=== PATIENT | male | born 1930 | race African-American/Black ===

== ENCOUNTER 2018-02-19 11:52 | Inpatient (IN) | payer MEDICARE, OTHER ==
[~2018-02-19] VITALS: Ht 175.3 cm; Wt 83.9 kg
[~2018-02-19 11:52] MED LIST: NKM; PROTONIX20 MG ORAL
[2018-02-19 12:15] VITALS: BP 163/82
[2018-02-19] MEDS ORDERED: Sodium Chloride 500ML 500 ML IV ONE (12:23)
[2018-02-19] MEDS ORDERED: Isovue-300 100ml vial INJ PRN (12:30)
[2018-02-19 13:16] LABS: HEMATOCRIT 38.4 % (42.0-52.0); HEMOGLOBIN 11.9 G/DL (14.2-18.0); MEAN CORPUSCULAR VOLUME 84 FL (80-99); PLATELET COUNT 253 K/UL (150-450); RED BLOOD COUNT 4.55 M/UL (4.70-6.10); RED CELL DISTRIBUTION WIDTH 11.8 % (11.6-14.8); WHITE BLOOD COUNT 9.3 K/UL (4.8-10.8)
[2018-02-19 13:18] LABS: APPEARANCE,URINE CLEAR; BILIRUBIN, URINE NEGATIVE (NEGATIVE); GLUCOSE, URINE (UA) NEGATIVE (NEGATIVE); KETONES,URINE NEGATIVE (NEGATIVE); LEUKOCYTE ESTERASE ,URINE NEGATIVE (NEGATIVE); NITRITE,URINE NEGATIVE (NEGATIVE); PH,URINE 6 (4.5-8.0); PROTEIN,URINE 2+ (NEGATIVE); UROBILINOGEN,URINE NORMAL MG/DL (0.0-1.0)
[2018-02-19 13:21] LABS: COLOR,URINE YELLOW
[2018-02-19 13:30] VITALS: BP 153/68
[2018-02-19 13:30] LABS: ANION GAP 9 mmol/L (5-15); BLOOD UREA NITROGEN 18 mg/dL (7-18); CALCIUM 9.8 MG/DL (8.5-10.1); CARBON DIOXIDE 25 MMOL/L (21-32); CHLORIDE 106 MMOL/L (98-107); CREATININE 1.2 MG/DL (0.55-1.30); POTASSIUM 3.8 MMOL/L (3.5-5.1); SODIUM 140 MMOL/L (136-145)
[2018-02-19 13:34] LABS: ALANINE AMINOTRANSFERASE 21 U/L (12-78); ALBUMIN 4.3 G/DL (3.4-5.0); ALBUMIN/GLOBULIN RATIO 1.1 (1.0-2.7); ALKALINE PHOSPHATASE 124 U/L (46-116); ASPARTATE AMINO TRANSFERASE 23 U/L (15-37); BILIRUBIN,TOTAL 0.4 MG/DL (0.2-1.0)
--- NOTE | 2018-02-19 13:34 | Emergency Room Report ---
History of Present Illness General Chief Complaint: Abdominal Pain Source: Family Member (Charlie Young MD) Present Illness HPI 87-year-old male presents ED complaining of abdominal pain 1 day. Pain is epigastric, 5 out of 10, sharp, nonradiating. Denies chest pain or shortness of breath. Denies nausea or vomiting. No other aggravating relieving factors. Denies any other associated symptoms (Charlie Young MD) Allergies: Coded Allergies: No Known Allergies (Verified Allergy, Mild, 08/21/10) Patient History Past Medical History: HTN, dementia Past Surgical History: none Pertinent Family History: none Social History: Denies: smoking, alcohol use, drug use Immunizations: UTD Reviewed Nursing Documentation: PMH: Agreed; PSxH: Agreed (Charlie Young MD) Nursing Documentation-PMH Hx Hypertension: Yes History Of Psychiatric Problem: Yes Hx Neurological Problems: Yes - parkinsons, dementia (Charlie Young MD) Review of Systems All Other Systems: negative except mentioned in HPI (Charlie Young MD) Physical Exam Vital Signs Date Time Temp Pulse Resp B/P (MAP) Pulse Ox O2 Delivery O2 Flow Rate FiO2 02/19/18 12:06 98.2 80 16 163/82 97 Room Air 98.2 Sp02 EP Interpretation: reviewed, normal General Appearance: no apparent distress, alert, GCS 15, non-toxic Head: normocephalic, atraumatic Eyes: bilateral eye normal inspection, bilateral eye PERRL ENT: hearing grossly normal, normal pharynx, no angioedema, normal voice Neck: full range of motion, supple/symm/no masses Respiratory: chest non-tender, lungs clear, normal breath sounds, speaking full sentences Cardiovascular #1: regular rate, rhythm, no edema Cardiovascular #2: 2+ carotid (R), 2+ carotid (L), 2+ radial (R), 2+ radial (L) , 2+ dorsalis pedis (R), 2+ dorsalis pedis (L) Gastrointestinal: normal bowel sounds, soft, non-distended, no guarding, no rebound, tenderness - epigastric Rectal: deferred Genitourinary: normal inspection, no CVA tenderness Musculoskeletal: back normal, gait/station normal, normal range of motion, non- tender Neurologic: alert, oriented x3, responsive, motor strength/tone normal, sensory intact, speech normal Psychiatric: judgement/insight normal, memory normal, mood/affect normal, no suicidal/homicidal ideation Reflexes: 3+ bicep (R), 3+ bicep (L), 3+ tricep (R), 3+ tricep (L), 3+ knee (R) , 3+ knee (L) Skin: normal color, no rash, warm/dry, well hydrated Lymphatic: no adenopathy (Charlie Young MD) Medical Decision Making ER Course The patient was endorsed to me by Dr. Young. The patient was noted to have abdominal discomfort. The CT abdomen pelvis showed evidence of bowel thickening as well as the gallbladder wall thickening. Dr. Xander Fofana was contacted for inpatient management due to covering physician. Dr. Kelley was contacted for surgical consult. (Fredi Coe MD) EKG Diagnostic Results Rate: normal Rhythm: NSR ST Segments: no acute changes ASA given to the pt in ED: No (Charlie Young MD) Rhythm Strip Diag. Results EP Interpretation: yes Rhythm: NSR, no PVC's, no ectopy (Charlie Young MD) Last Vital Signs Date Time Temp Pulse Resp B/P (MAP) Pulse Ox O2 Delivery O2 Flow Rate FiO2 02/19/18 12:15 98.2 16 163/82 97 Room Air 98.2 02/19/18 12:06 80 (Charlie Young MD) Status: unchanged (Fredi Coe MD) Charlie Young MD Feb 19, 2018 13:34 Fredi Coe MD Feb 19, 2018 16:48
--- NOTE | 2018-02-19 14:32 | Diagnostic Imaging Report ---
EXAM: CT Abdomen and Pelvis With Intravenous Contrast CLINICAL HISTORY: ABD PAIN TECHNIQUE: Axial computed tomography images of the abdomen and pelvis with intravenous contrast. CTDI is 14 mGy and DLP is 705 mGy-cm. One or more of the following dose reduction techniques were used: automated exposure control, adjustment of the mA and/or kV according to patient size, use of iterative reconstruction technique. COMPARISON: CT abdomen and pelvis dated 03/04/16. FINDINGS: Lung bases: Minimal dependent atelectasis in the lung bases. Mediastinum: Moderate size hiatal hernia. ABDOMEN: Liver: Stable subcentimeter hepatic hypodensities, largest measuring 7 mm in the left hepatic lobe, unchanged, likely small cysts or biliary hamartomas. Gallbladder and bile ducts: Mild gallbladder wall thickening without calcified stones. Mild distention of the common bile duct to 7 mm and mild prominence of the pancreatic duct. No visible calcified ductal stones. Pancreas: See above. Spleen: Unremarkable. No splenomegaly. Adrenals: Unremarkable. No mass. Kidneys and ureters: Scattered subcentimeter simple-appearing renal cysts. The kidneys otherwise appear unremarkable. No hydronephrosis. Stomach and bowel: Mild wall thickening of the descending and sigmoid colon may be related to underdistended loops. Scattered diverticula in the descending and sigmoid colon. No abnormally distended loops of small bowel. Mildly distended stomach with a moderate hiatal hernia. PELVIS: Appendix: No findings to suggest acute appendicitis. Bladder: Unremarkable. No mass. Reproductive: The prostate gland and seminal vesicles appear unremarkable. ABDOMEN and PELVIS: Intraperitoneal space: Unremarkable. No free air. No significant fluid collection. Bones/joints: No acute fracture. No dislocation. Soft tissues: Small bilateral fat-containing hernias, right greater than left. Vasculature: Atherosclerotic calcifications throughout the abdominal aorta and its proximal branches. No aneurysmal dilatation. Lymph nodes: Unremarkable. No enlarged lymph nodes. IMPRESSION: 1. Mild wall thickening of the descending and sigmoid colon may be related to underdistention versus a mild infectious or inflammatory colitis or diverticulitis. No adjacent inflammatory changes, free air, or fluid collections. 2. Mild gallbladder wall thickening with associated distention of the common bile duct to 7 mm and mild prominence of the pancreatic duct. No visible calcified stones. This is not significantly changed compared to the prior CT exam. If there is continued clinical concern, further evaluation with right upper quadrant ultrasound or MRI/MRCP may be considered 3. Moderate size hiatal hernia. 4. Stable subcentimeter hepatic hypodensities, largest measuring 7 mm in the left hepatic lobe, unchanged, likely small cysts or biliary hamartomas. 5. Descending and sigmoid colonic diverticulosis without evidence of acute inflammation.
[2018-02-19] MEDS ORDERED: Piperacillin/Tazobactam 3.375 GM in NS 110 ML IVPB ONE (14:45)
[2018-02-19] MEDS ORDERED: Morphine Sulfate 2mg/ml Inj(IV/IM USE ONLY) IVP ONE (15:00)
[2018-02-19 16:30] VITALS: BP 159/75
[2018-02-19 17:54] VITALS: BP 153/68
--- NOTE | 2018-02-19 19:02 | Consultation ---
History of Present Illness General Date patient seen: Feb 19, 2018 Chief Complaint: Abdominal Pain Reason for Consultation: abdominal pain Present Illness HPI 87 year old male with multiple medical comorbidities presented to ED with complaints of Abdominal pain for 1 day. As per patient, he was doing well until he began to note some epigastric 5/10 abdominal discomfort. mild nausea but no emesis. no fever or chills. no radiation of pain. states he has had similar episodes prior but this one was worse and he came for evaluation. In ED had CT which demonstrated mildly thickened gallbladder wall thickening, possible descending colitis. Surgery consulted to evaluate for abdominal pain. patient seen, chart reviewed, patient examined. patient states he feels better now but still having some discomfort. on examination pain in mid abdomen. last BM few days ago. states he does have appetite. Allergies: Coded Allergies: No Known Allergies (Verified Allergy, Mild, 08/21/10) Medication History Scheduled No Known Medications* (NKM - No Known Medications*), 0 ., (Reported) Pantoprazole Sodium (Protonix), 20 MG ORAL DAILY Patient History History Provided By: Patient, Medical Record, PMD Healthcare decision maker Resuscitation status Advanced Directive on File Past Medical/Surgical History Past Medical/Surgical History: (1) Intractable abdominal pain (2) Hypertension (3) Encephalopathy acute (4) Biliary colic (5) Transaminitis Review of Systems All Other Systems: negative except mentioned in HPI Physical Exam General Appearance: no apparent distress, alert Lines, tubes and drains: peripheral HEENT: normocephalic, mucous membranes moist Neck: normal inspection Respiratory/Chest: normal breath sounds, no respiratory distress, no accessory muscle use Cardiovascular/Chest: normal rate Abdomen: normal bowel sounds, soft, no organomegaly, no mass, tender - mid abdomen, mild Extremities: normal inspection Skin Exam: warm/dry Neurologic: alert, responsive Last 24 Hour Vital Signs Date Time Temp Pulse Resp B/P (MAP) Pulse Ox O2 Delivery O2 Flow Rate FiO2 02/19/18 17:54 98.2 69 18 153/68 100 Room Air 98.2 02/19/18 17:48 98.2 02/19/18 16:30 98.2 83 18 159/75 100 Room Air 98.2 02/19/18 15:17 98.2 02/19/18 13:30 98.2 87 18 153/68 98 Room Air 98.2 02/19/18 12:15 98.2 16 163/82 97 Room Air 98.2 02/19/18 12:06 98.2 80 16 163/82 97 Room Air 98.2 Laboratory Tests Test 02/19/18 13:01 White Blood Count 9.3 K/UL (4.8-10.8) Red Blood Count 4.55 M/UL (4.70-6.10) L Hemoglobin 11.9 G/DL (14.2-18.0) L Hematocrit 38.4 % (42.0-52.0) L Mean Corpuscular Volume 84 FL (80-99) Mean Corpuscular Hemoglobin 26.1 PG (27.0-31.0) L Mean Corpuscular Hemoglobin Concent 30.9 G/DL (32.0-36.0) L Red Cell Distribution Width 11.8 % (11.6-14.8) Platelet Count 253 K/UL (150-450) Mean Platelet Volume 7.5 FL (6.5-10.1) Neutrophils (%) (Auto) % (45.0-75.0) Lymphocytes (%) (Auto) % (20.0-45.0) Monocytes (%) (Auto) % (1.0-10.0) Eosinophils (%) (Auto) % (0.0-3.0) Basophils (%) (Auto) % (0.0-2.0) Differential Total Cells Counted 100 Neutrophils % (Manual) 89 % (45-75) H Lymphocytes % (Manual) 8 % (20-45) L Monocytes % (Manual) 3 % (1-10) Eosinophils % (Manual) 0 % (0-3) Basophils % (Manual) 0 % (0-2) Band Neutrophils 0 % (0-8) Platelet Estimate Adequate Platelet Morphology Normal Hypochromasia 1+ Anisocytosis 1+ Urine Color Yellow Urine Appearance Clear Urine pH 6 (4.5-8.0) Urine Specific [place] 1.020 (1.005-1.035) Urine Protein 2+ (NEGATIVE) H Urine Glucose (UA) Negative (NEGATIVE) Urine Ketones Negative (NEGATIVE) Urine Occult Blood Negative (NEGATIVE) Urine Nitrite Negative (NEGATIVE) Urine Bilirubin Negative (NEGATIVE) Urine Urobilinogen Normal MG/DL (0.0-1.0) Urine Leukocyte Esterase Negative (NEGATIVE) Urine RBC 0-2 /HPF (0 - 0) H Urine WBC 0-2 /HPF (0 - 0) Urine Squamous Epithelial Cells Occasional /LPF Urine Bacteria Occasional /HPF (NONE) Urine Fine Granular Casts 0-2 /LPF (NONE) H Sodium Level 140 MMOL/L (136-145) Potassium Level 3.8 MMOL/L (3.5-5.1) Chloride Level 106 MMOL/L (98-107) Carbon Dioxide Level 25 MMOL/L (21-32) Anion Gap 9 mmol/L (5-15) Blood Urea Nitrogen 18 mg/dL (7-18) Creatinine 1.2 MG/DL (0.55-1.30) Estimat Glomerular Filtration Rate mL/min (>60) Glucose Level 119 MG/DL (74-106) H Calcium Level 9.8 MG/DL (8.5-10.1) Total Bilirubin 0.4 MG/DL (0.2-1.0) Aspartate Amino Transf (AST/SGOT) 23 U/L (15-37) Alanine Aminotransferase (ALT/SGPT) 21 U/L (12-78) Alkaline Phosphatase 124 U/L (46-116) H Troponin I 0.004 ng/mL (0.000-0.056) Total Protein 8.3 G/DL (6.4-8.2) H Albumin 4.3 G/DL (3.4-5.0) Globulin 4.0 g/dL Albumin/Globulin Ratio 1.1 (1.0-2.7) Lipase 88 U/L (73-393) Height (Feet): 5 Height (Inches): 9.00 Weight (Pounds): 185 Medications Current Medications Medications (Trade) Dose Ordered Sig/Juvenal Route PRN Reason Start Time Stop Time Status Last Admin Dose Admin Iopamidol (Isovue-300 100ml) 100 ml NOW PRN INJ Radiology Procedure 02/19/18 12:30 Assessment/Plan Problem List: (1) Intractable abdominal pain Assessment & Plan: 87M with abdominal pain. afebrile, HD stable, labs reviewed. no leukocytosis but shift. alk phos mildly elevated. CT with GB wall thickening, normal CBD, possible descending colitis. -will obtain abdominal ultrasound -trend labs -Abx -NPO with IV fluids -serial abdominal exams thank you for this consultation. will follow with recs. ICD Codes: R10.9 - Unspecified abdominal pain SNOMED: [id number], [id number] Status: stable WarrenRomán Feb 19, 2018 19:02
[2018-02-19] MEDS ORDERED: Mylanta II UD 30ml ORAL PRN (19:15)
[2018-02-19] MEDS ORDERED: Morphine Sulfate 2mg/ml Inj(IV/IM USE ONLY) IVP PRN ×2 (19:15)
[2018-02-19 19:50] VITALS: BP 143/75
[2018-02-19] MEDS: D5 1/2NS w/KCl 20mEq 1,000 ML IV SCH (20:59)
[2018-02-19] MEDS ORDERED: Milk of Magnesia 30ml Ud ORAL PRN (21:00)
[2018-02-19] MEDS: Heparin 5000 units/ml inj SUBQ SCH (21:03)
[2018-02-20] VITALS: BP 139/62
[2018-02-20 04:00] VITALS: BP 138/66
[2018-02-20] MEDS: D5 1/2NS w/KCl 20mEq 1,000 ML IV SCH ×2 (05:58→16:53)
[2018-02-20 06:15] LABS: BASOPHILS % (AUTO) 0.2 % (0.0-2.0); EOSINOPHILS % (AUTO) 0.4 % (0.0-3.0); HEMATOCRIT 33.2 % (42.0-52.0); HEMOGLOBIN 11.1 G/DL (14.2-18.0); LYMPHOCYTES % (AUTO) 9.5 % (20.0-45.0); MEAN CORPUSCULAR VOLUME 84 FL (80-99); MONOCYTES % (AUTO) 7.8 % (1.0-10.0); NEUTROPHILS % (AUTO) 82.1 % (45.0-75.0); PLATELET COUNT 202 K/UL (150-450); RED BLOOD COUNT 3.97 M/UL (4.70-6.10); RED CELL DISTRIBUTION WIDTH 11.8 % (11.6-14.8); WHITE BLOOD COUNT 11.9 K/UL (4.8-10.8)
[2018-02-20 06:39] LABS: ALANINE AMINOTRANSFERASE 18 U/L (12-78); ALBUMIN 3.4 G/DL (3.4-5.0); ALBUMIN/GLOBULIN RATIO 0.9 (1.0-2.7); ALKALINE PHOSPHATASE 99 U/L (46-116); ANION GAP 10 mmol/L (5-15); ASPARTATE AMINO TRANSFERASE 16 U/L (15-37); BILIRUBIN,TOTAL 0.7 MG/DL (0.2-1.0); BLOOD UREA NITROGEN 12 mg/dL (7-18); CALCIUM 8.6 MG/DL (8.5-10.1); CARBON DIOXIDE 27 MMOL/L (21-32); CHLORIDE 102 MMOL/L (98-107); CREATININE 1.2 MG/DL (0.55-1.30); POTASSIUM 3.6 MMOL/L (3.5-5.1); SODIUM 139 MMOL/L (136-145)
[2018-02-20 08:00] VITALS: BP 126/67
[2018-02-20] MEDS: Pantoprazole Inj IV SCH (08:48)
[2018-02-20] MEDS: Heparin 5000 units/ml inj SUBQ SCH ×2 (08:50→22:10)
[2018-02-20] MEDS: Piperacillin/Tazobactam 3.375 GM in D5W 110 ML IVPB SCH ×2 (09:06→16:53)
[2018-02-20 12:00] VITALS: BP 130/70
--- NOTE | 2018-02-20 12:30 | History and Physical Report ---
DATE OF ADMISSION: 02/19/2018 CHIEF COMPLAINT: Abdominal pain. HISTORY OF PRESENT ILLNESS: The patient is a pleasant 87-year-old male. He has a history of cholelithiasis, hypertension, hypertensive heart disease, bradycardia, and conduction system disease. He has a history of dementia. He presented with complaints of abdominal pain for two to three days. He has had similar episodes in the past possibly secondary to gallstones. He was treated conservatively at that time. On evaluation in the emergency room, the patient had a CAT scan of the abdomen that did show some gallbladder wall thickening. He had a low-grade temperature. Blood cultures have been drawn. Surgical consultation has been obtained. The patient is now admitted for further evaluation and care. PAST MEDICAL HISTORY: As above. PAST SURGICAL HISTORY: None. CURRENT MEDICATIONS: Reconciled and reviewed. ALLERGIES: None. FAMILY HISTORY: None. SOCIAL HISTORY: Negative for tobacco, ethanol, or drugs. REVIEW OF SYSTEMS: GENERAL: Positive fevers and chills. No night sweats. HEENT: No headaches or visual changes. CARDIOPULMONARY: No chest pain or shortness of breath. GASTROINTESTINAL: Positive abdominal pain above the umbilicus. GENITOURINARY: No urgency or frequency. MUSCULOSKELETAL: No joint pain or swelling. NEUROLOGIC: No evidence of seizures. PHYSICAL EXAMINATION: VITAL SIGNS: Temperature, T-max was 100.5, pulse 73, respirations 19, and blood pressure 138/66. GENERAL: The patient is well developed, no apparent distress. HEART: Regular rate and rhythm. LUNGS: Clear. ABDOMEN: Soft. Minimally tender in the mid epigastric region. There is no rebound or guarding noted. EXTREMITIES: No clubbing or cyanosis. LABORATORY AND DIAGNOSTIC DATA: White count was 12, hemoglobin 11, hematocrit 33, and platelets 202. Coags normal. Sodium 140, potassium 3.8, glucose 119, and creatinine 1.2. Lipase was negative. LFTs were also unremarkable. CT scan of the abdomen shows bowel wall thickening of the descending and sigmoid colon. Mild gallbladder wall thickening. Hiatal hernia. Hepatic hypodensities. ASSESSMENT: This is a pleasant male, admitted with complaints of abdominal pain of unclear etiology, concerns include possible colitis and/or cholecystitis. PLAN: IV hydration, n.p.o., surgical and GI consultation will be obtained. Empiric antibiotic therapy. Xander Fofana M.D. DR: NELIA JOB#: [id number] CC:
--- NOTE | 2018-02-20 12:39 | General Surgery Progress Note ---
General Surgery-Progress Note Subjective Symptoms: improved, pain absent Additional Comments comfortable. ambulatory with therapy today. no n/v/f/c. pain resolving Objective Last 24 Hour Vital Signs Date Time Temp Pulse Resp B/P (MAP) Pulse Ox O2 Delivery O2 Flow Rate FiO2 02/20/18 09:00 Room Air 02/20/18 08:00 99.0 66 19 126/67 (86) 98 99.0 02/20/18 05:24 98.4 02/20/18 04:25 100.5 02/20/18 04:00 100.5 73 19 138/66 (90) 98 100.5 02/20/18 00:00 99.3 66 19 139/62 (87) 97 99.3 02/19/18 23:04 Room Air 02/19/18 19:50 99.1 76 18 143/75 (97) 99 99.1 02/19/18 19:35 98.2 69 18 153/68 100 Room Air 98.2 02/19/18 17:54 98.2 69 18 153/68 100 Room Air 98.2 02/19/18 17:48 98.2 02/19/18 16:30 98.2 83 18 159/75 100 Room Air 98.2 02/19/18 15:17 98.2 02/19/18 13:30 98.2 87 18 153/68 98 Room Air 98.2 I&O Intake and Output 02/19/18 02/20/18 19:00 07:00 Intake Total 0 ml Output Total 150 ml Balance -150 ml Intake Oral 0 ml Output Urine Total 150 ml # Voids 1 4 Drains: none Cardiovascular: RSR Respiratory: clear Abdomen: soft, distended, non-tender, present bowel sounds Extremities: no cyanosis Laboratory Tests Test 02/19/18 13:01 02/20/18 05:30 White Blood Count 9.3 K/UL (4.8-10.8) 11.9 K/UL (4.8-10.8) H Red Blood Count 4.55 M/UL (4.70-6.10) L 3.97 M/UL (4.70-6.10) L Hemoglobin 11.9 G/DL (14.2-18.0) L 11.1 G/DL (14.2-18.0) L Hematocrit 38.4 % (42.0-52.0) L 33.2 % (42.0-52.0) L Mean Corpuscular Volume 84 FL (80-99) 84 FL (80-99) Mean Corpuscular Hemoglobin 26.1 PG (27.0-31.0) L 28.1 PG (27.0-31.0) Mean Corpuscular Hemoglobin Concent 30.9 G/DL (32.0-36.0) L 33.5 G/DL (32.0-36.0) Red Cell Distribution Width 11.8 % (11.6-14.8) 11.8 % (11.6-14.8) Platelet Count 253 K/UL (150-450) 202 K/UL (150-450) Mean Platelet Volume 7.5 FL (6.5-10.1) 8.3 FL (6.5-10.1) Neutrophils (%) (Auto) % (45.0-75.0) 82.1 % (45.0-75.0) H Lymphocytes (%) (Auto) % (20.0-45.0) 9.5 % (20.0-45.0) L Monocytes (%) (Auto) % (1.0-10.0) 7.8 % (1.0-10.0) Eosinophils (%) (Auto) % (0.0-3.0) 0.4 % (0.0-3.0) Basophils (%) (Auto) % (0.0-2.0) 0.2 % (0.0-2.0) Differential Total Cells Counted 100 Neutrophils % (Manual) 89 % (45-75) H Lymphocytes % (Manual) 8 % (20-45) L Monocytes % (Manual) 3 % (1-10) Eosinophils % (Manual) 0 % (0-3) Basophils % (Manual) 0 % (0-2) Band Neutrophils 0 % (0-8) Platelet Estimate Adequate Platelet Morphology Normal Hypochromasia 1+ Anisocytosis 1+ Urine Color Yellow Urine Appearance Clear Urine pH 6 (4.5-8.0) Urine Specific [place] 1.020 (1.005-1.035) Urine Protein 2+ (NEGATIVE) H Urine Glucose (UA) Negative (NEGATIVE) Urine Ketones Negative (NEGATIVE) Urine Occult Blood Negative (NEGATIVE) Urine Nitrite Negative (NEGATIVE) Urine Bilirubin Negative (NEGATIVE) Urine Urobilinogen Normal MG/DL (0.0-1.0) Urine Leukocyte Esterase Negative (NEGATIVE) Urine RBC 0-2 /HPF (0 - 0) H Urine WBC 0-2 /HPF (0 - 0) Urine Squamous Epithelial Cells Occasional /LPF Urine Bacteria Occasional /HPF (NONE) Urine Fine Granular Casts 0-2 /LPF (NONE) H Sodium Level 140 MMOL/L (136-145) 139 MMOL/L (136-145) Potassium Level 3.8 MMOL/L (3.5-5.1) 3.6 MMOL/L (3.5-5.1) Chloride Level 106 MMOL/L (98-107) 102 MMOL/L (98-107) Carbon Dioxide Level 25 MMOL/L (21-32) 27 MMOL/L (21-32) Anion Gap 9 mmol/L (5-15) 10 mmol/L (5-15) Blood Urea Nitrogen 18 mg/dL (7-18) 12 mg/dL (7-18) Creatinine 1.2 MG/DL (0.55-1.30) 1.2 MG/DL (0.55-1.30) Estimat Glomerular Filtration Rate mL/min (>60) mL/min (>60) Glucose Level 119 MG/DL (74-106) H 125 MG/DL (74-106) H Calcium Level 9.8 MG/DL (8.5-10.1) 8.6 MG/DL (8.5-10.1) Total Bilirubin 0.4 MG/DL (0.2-1.0) 0.7 MG/DL (0.2-1.0) Aspartate Amino Transf (AST/SGOT) 23 U/L (15-37) 16 U/L (15-37) Alanine Aminotransferase (ALT/SGPT) 21 U/L (12-78) 18 U/L (12-78) Alkaline Phosphatase 124 U/L (46-116) H 99 U/L (46-116) Troponin I 0.004 ng/mL (0.000-0.056) Total Protein 8.3 G/DL (6.4-8.2) H 7.3 G/DL (6.4-8.2) Albumin 4.3 G/DL (3.4-5.0) 3.4 G/DL (3.4-5.0) Globulin 4.0 g/dL 3.9 g/dL Albumin/Globulin Ratio 1.1 (1.0-2.7) 0.9 (1.0-2.7) L Lipase 88 U/L (73-393) Prothrombin Time 10.7 SEC (9.30-11.50) Prothromb Time International Ratio 1.0 (0.9-1.1) Activated Partial Thromboplast Time 29 SEC (23-33) Plan Problems: (1) Intractable abdominal pain Assessment & Plan: 87M with abdominal pain. afebrile, HD stable, labs reviewed. no leukocytosis but shift. alk phos mildly elevated. CT with GB wall thickening, normal CBD, possible descending colitis. -will obtain abdominal ultrasound -trend labs -Abx -start clear liquids thank you for this consultation. will follow with recs. Román Kelley Feb 20, 2018 12:39
[2018-02-20 16:00] VITALS: BP 142/76
[2018-02-20] MEDS ORDERED: Simethicone 80mg tab ORAL PRN (16:30)
[2018-02-20] MEDS ORDERED: Fluconazole 100mg tab ORAL SCH (16:30)
[2018-02-20] MEDS ORDERED: Simethicone 80mg tab ORAL SCH (16:30)
--- NOTE | 2018-02-20 18:37 | Cardiology Report ---
APPROVED REPORT EKG Measurement Heart [id number] [place] [id number] Sinus rhythm with premature atrial complexes Voltage criteria for left ventricular hypertrophy Nonspecific T wave abnormality Abnormal ECG
[2018-02-20 20:00] VITALS: BP 147/64
[2018-02-21] VITALS: BP 136/62
[2018-02-21] MEDS: Piperacillin/Tazobactam 3.375 GM in D5W 110 ML IVPB SCH ×3 (00:26→17:20)
--- NOTE | 2018-02-21 01:00 | Consultation ---
DATE OF CONSULTATION: 02/20/2018 NOTE: POOR AUDIO INFECTIOUS DISEASE CONSULTATION This consult is for coverage of Dr. Almanzar. CONSULTING PHYSICIAN: Garret Hicks M.D. PRIMARY ATTENDING PHYSICIAN: Xander Fofana M.D. REASON FOR CONSULT: Abdominal pain, cholecystitis, and colitis. HISTORY OF PRESENT ILLNESS: The patient is an 87-year-old male, admitted yesterday complaining of mid abdominal pain the patient had no fever, no chills, no leukocytosis at the time of admission. Pain was 5/10, nonradiating. A CT scan of the abdomen and pelvis showed colitis, mild thickening of the gallbladder and hiatus hernia. Today, the patient is pain free. PAST MEDICAL HISTORY: Significant for hypertension, dementia, Parkinson's, esophageal diverticulum, and gastritis. ALLERGIES: No known drug allergies. MEDICATIONS: Zosyn, heparin, , Tylenol, , Zofran, diphenhydramine, and Mylanta. SOCIAL HISTORY: Lives at home with daughter. No history of alcohol, drug abuse, or smoking. REVIEW OF SYSTEMS: No fever. No chills. No sore throat. No nausea. No vomiting. Abdominal pain is resolved. No problem passing urine. Ambulatory. PHYSICAL EXAMINATION: VITAL SIGNS: Temperature 98.7 degrees, pulse 70, and blood pressure 130/70. He had a fever of 100.5 degrees early this morning. GENERAL APPEARANCE: Seems to be well developed, awake, alert, verbal. HEAD AND NECK: [place] conjunctivae. Uses dentures. HEART: Regular. LUNGS: Clear. ABDOMEN: Obese, soft, nontender. EXTREMITIES: No edema. LABORATORY AND DIAGNOSTIC DATA: WBC 11.9, hemoglobin 11.1, hematocrit 33.2, and platelets 202. Sodium 139, potassium 3.6, chloride 102, bicarbonate 27, BUN 12, creatinine 1.2, and glucose 125. UA was negative. CT scan of the abdomen and pelvis with contrast showed mild wall thickening of descending sigmoid colon. Mild gallbladder wall thickening with distention in the colon , moderate size hiatal hernia, descending and sigmoid colon diverticulosis. IMPRESSION: An elderly male coming with abdominal pain, likely secondary to colitis or cholecystitis, has dementia, hiatal hernia, has history of esophageal diverticulum, has diverticulosis of colon, and history of gastritis. RECOMMENDATIONS: We will continue with Zosyn. We will follow up the abdominal ultrasound. At the end of my exam, I thank Dr. Fofana for involving me in the care of this patient. Garret Hicks M.D. DR: LIVIER JOB#: [id number] CC: MARY
[2018-02-21] MEDS: D5 1/2NS w/KCl 20mEq 1,000 ML IV SCH ×3 (02:00→22:00)
[2018-02-21 04:00] VITALS: BP 116/64
[2018-02-21 06:27] LABS: BASOPHILS % (AUTO) 0.4 % (0.0-2.0); EOSINOPHILS % (AUTO) 0.6 % (0.0-3.0); HEMATOCRIT 33.5 % (42.0-52.0); HEMOGLOBIN 10.8 G/DL (14.2-18.0); LYMPHOCYTES % (AUTO) 11.2 % (20.0-45.0); MEAN CORPUSCULAR VOLUME 84 FL (80-99); NEUTROPHILS % (AUTO) 80.9 % (45.0-75.0); PLATELET COUNT 185 K/UL (150-450); RED BLOOD COUNT 3.97 M/UL (4.70-6.10); RED CELL DISTRIBUTION WIDTH 11.8 % (11.6-14.8); WHITE BLOOD COUNT 12.4 K/UL (4.8-10.8)
[2018-02-21 07:12] LABS: ALANINE AMINOTRANSFERASE 21 U/L (12-78); ALBUMIN 3.1 G/DL (3.4-5.0); ALBUMIN/GLOBULIN RATIO 0.8 (1.0-2.7); ALKALINE PHOSPHATASE 90 U/L (46-116); ANION GAP 10 mmol/L (5-15); ASPARTATE AMINO TRANSFERASE 21 U/L (15-37); BILIRUBIN,TOTAL 1.3 MG/DL (0.2-1.0); BLOOD UREA NITROGEN 11 mg/dL (7-18); CALCIUM 8.4 MG/DL (8.5-10.1); CARBON DIOXIDE 25 MMOL/L (21-32); CHLORIDE 102 MMOL/L (98-107); CREATININE 1.3 MG/DL (0.55-1.30); POTASSIUM 3.5 MMOL/L (3.5-5.1); SODIUM 137 MMOL/L (136-145)
[2018-02-21 07:15] LABS: BILIRUBIN,DIRECT 0.4 MG/DL (0.0-0.3)
[2018-02-21 08:00] VITALS: BP 125/67
--- NOTE | 2018-02-21 08:40 | General Progress Note ---
Assessment/Plan Problem List: (1) Hypertension ICD Codes: I10 - Essential (primary) hypertension SNOMED: 78406087 (2) Encephalopathy acute ICD Codes: G93.40 - Encephalopathy, unspecified SNOMED: 9492080 (3) Transaminitis ICD Codes: R74.0 - Nonspecific elevation of levels of transaminase and lactic acid dehydrogenase [LDH] SNOMED: 955247366 (4) Intractable abdominal pain ICD Codes: R10.9 - Unspecified abdominal pain SNOMED: 81005480, 947339217 (5) Biliary colic ICD Codes: K80.50 - Calculus of bile duct without cholangitis or cholecystitis without obstruction SNOMED: 30908836 Status: stable Assessment/Plan cont abx per id mrcp follow up cultures tylenol for fever cardaic rx ivf Subjective ROS Limited/Unobtainable: No Constitutional: Reports: fever HEENT: Reports: no symptoms Cardiovascular: Reports: no symptoms Respiratory: Reports: no symptoms Gastrointestinal/Abdominal: Reports: no symptoms Genitourinary: Reports: no symptoms Neurologic/Psychiatric: Reports: no symptoms Endocrine: Reports: no symptoms Hematologic/Lymphatic: Reports: no symptoms Allergies: Coded Allergies: No Known Allergies (Verified Allergy, Mild, 08/21/10) All Systems: reviewed and negative except above Subjective no new complaints. no abd pain. low grade temps. Objective Last 24 Hour Vital Signs Date Time Temp Pulse Resp B/P (MAP) Pulse Ox O2 Delivery O2 Flow Rate FiO2 02/21/18 08:00 99.8 69 20 125/67 (86) 98 99.8 02/21/18 04:00 99.5 66 18 116/64 (81) 98 99.5 02/21/18 00:00 100.6 65 19 136/62 (86) 99 100.6 02/20/18 21:00 Room Air 02/20/18 20:00 98.1 59 19 147/64 (91) 99 98.1 02/20/18 17:53 98.6 02/20/18 16:54 101.7 02/20/18 16:00 101.7 78 18 142/76 (98) 99 101.7 02/20/18 12:00 98.7 70 18 130/70 (90) 97 98.7 02/20/18 09:00 Room Air Intake and Output 02/20/18 02/21/18 19:00 07:00 Output Total 200 ml Balance -200 ml Output Urine Total 200 ml Laboratory Tests 02/21/18 05:10: White Blood Count 12.4H, Red Blood Count 3.97L, Hemoglobin 10.8L, Hematocrit 33.5L, Mean Corpuscular Volume 84, Mean Corpuscular Hemoglobin 27.2, Mean Corpuscular Hemoglobin Concent 32.2, Red Cell Distribution Width 11.8, Platelet Count 185, Mean Platelet Volume 9.1, Neutrophils (%) (Auto) 80.9H, Lymphocytes ( %) (Auto) 11.2L, Monocytes (%) (Auto) 7.0, Eosinophils (%) (Auto) 0.6, Basophils (%) (Auto) 0.4, Sodium Level 137, Potassium Level 3.5, Chloride Level 102, Carbon Dioxide Level 25, Anion Gap 10, Blood Urea Nitrogen 11, Creatinine 1.3, Estimat Glomerular Filtration Rate , Glucose Level 107H, Calcium Level 8.4L , Total Bilirubin 1.3H, Direct Bilirubin 0.4H, Aspartate Amino Transf (AST/SGOT ) 21, Alanine Aminotransferase (ALT/SGPT) 21, Alkaline Phosphatase 90, Total Protein 6.9, Albumin 3.1L, Globulin 3.8, Albumin/Globulin Ratio 0.8L Height (Feet): 5 Height (Inches): 9.00 Weight (Pounds): 185 General Appearance: WD/WN, alert Neck: supple Cardiovascular: regular rhythm Respiratory/Chest: chest wall non-tender, lungs clear, normal breath sounds, no respiratory distress Abdomen: normal bowel sounds, non tender, soft, no organomegaly Edema: no edema noted Arm (L), no edema noted Arm (R), no edema noted Leg (L), no edema noted Leg (R), no edema noted Pedal (L), no edema noted Pedal (R), no edema noted Generalized Xander Fofana MD Feb 21, 2018 08:40
[2018-02-21] MEDS: Pantoprazole Inj IV SCH (09:17)
[2018-02-21] MEDS: Heparin 5000 units/ml inj SUBQ SCH ×2 (09:18→21:20)
[2018-02-21 12:00] VITALS: BP 108/55
--- NOTE | 2018-02-21 13:51 | General Surgery Progress Note ---
General Surgery-Progress Note Subjective Additional Comments pain improved. states feels better. no n/v/f/c. tolerated clears Objective Last 24 Hour Vital Signs Date Time Temp Pulse Resp B/P (MAP) Pulse Ox O2 Delivery O2 Flow Rate FiO2 02/21/18 12:00 100.1 63 18 108/55 (72) 98 100.1 02/21/18 09:00 Room Air 02/21/18 08:00 99.8 69 20 125/67 (86) 98 99.8 02/21/18 04:00 99.5 66 18 116/64 (81) 98 99.5 02/21/18 00:00 100.6 65 19 136/62 (86) 99 100.6 02/20/18 21:00 Room Air 02/20/18 20:00 98.1 59 19 147/64 (91) 99 98.1 02/20/18 17:53 98.6 02/20/18 16:54 101.7 02/20/18 16:00 101.7 78 18 142/76 (98) 99 101.7 I&O Intake and Output 02/20/18 02/21/18 19:00 07:00 Output Total 200 ml Balance -200 ml Output Urine Total 200 ml Drains: none Cardiovascular: RSR Respiratory: clear Abdomen: soft, non-tender, present bowel sounds Extremities: no cyanosis Laboratory Tests Test 02/21/18 05:10 White Blood Count 12.4 K/UL (4.8-10.8) H Red Blood Count 3.97 M/UL (4.70-6.10) L Hemoglobin 10.8 G/DL (14.2-18.0) L Hematocrit 33.5 % (42.0-52.0) L Mean Corpuscular Volume 84 FL (80-99) Mean Corpuscular Hemoglobin 27.2 PG (27.0-31.0) Mean Corpuscular Hemoglobin Concent 32.2 G/DL (32.0-36.0) Red Cell Distribution Width 11.8 % (11.6-14.8) Platelet Count 185 K/UL (150-450) Mean Platelet Volume 9.1 FL (6.5-10.1) Neutrophils (%) (Auto) 80.9 % (45.0-75.0) H Lymphocytes (%) (Auto) 11.2 % (20.0-45.0) L Monocytes (%) (Auto) 7.0 % (1.0-10.0) Eosinophils (%) (Auto) 0.6 % (0.0-3.0) Basophils (%) (Auto) 0.4 % (0.0-2.0) Sodium Level 137 MMOL/L (136-145) Potassium Level 3.5 MMOL/L (3.5-5.1) Chloride Level 102 MMOL/L (98-107) Carbon Dioxide Level 25 MMOL/L (21-32) Anion Gap 10 mmol/L (5-15) Blood Urea Nitrogen 11 mg/dL (7-18) Creatinine 1.3 MG/DL (0.55-1.30) Estimat Glomerular Filtration Rate mL/min (>60) Glucose Level 107 MG/DL (74-106) H Calcium Level 8.4 MG/DL (8.5-10.1) L Total Bilirubin 1.3 MG/DL (0.2-1.0) H Direct Bilirubin 0.4 MG/DL (0.0-0.3) H Aspartate Amino Transf (AST/SGOT) 21 U/L (15-37) Alanine Aminotransferase (ALT/SGPT) 21 U/L (12-78) Alkaline Phosphatase 90 U/L (46-116) Total Protein 6.9 G/DL (6.4-8.2) Albumin 3.1 G/DL (3.4-5.0) L Globulin 3.8 g/dL Albumin/Globulin Ratio 0.8 (1.0-2.7) L Plan Problems: (1) Intractable abdominal pain Assessment & Plan: 87M with abdominal pain. afebrile, HD stable, labs reviewed. no leukocytosis but shift. alk phos mildly elevated. CT with GB wall thickening, normal CBD, possible descending colitis. slight leukocytosis 12k. elevated t bili. Pending abdominal ultrasound -trend labs -Abx thank you for this consultation. will follow with recs. Román Kelley Feb 21, 2018 13:51
[2018-02-21 16:00] VITALS: BP 119/63
--- NOTE | 2018-02-21 16:56 | Diagnostic Imaging Report ---
Indication:Abdominal pain Technique: Grayscale and duplex Doppler imaging of the abdomen performed. Comparison: CT 02/19/2018 Findings: There is thickening of the wall the gallbladder. Gallstones are present. Trace pericholecystic fluid. Sonographic Tim's is negative per technologist. CBD is between 7 and 8 mm. The liver, demonstrated part of the pancreas, aorta and IVC, spleen appear unremarkable. There is no biliary ductal dilatation identified. Doppler evaluation of the main portal vein shows patency. There is no ascites. Some prominence of the collecting system demonstrated within the left kidney. Impression: Gallstones with wall thickening and pericholecystic fluid but negative sonographic Tim's. Findings are equivocal for cholecystitis based on imaging. Correlate clinically. Mild apparent hydronephrosis of the left kidney.
[2018-02-21 20:00] VITALS: BP 138/65
--- NOTE | 2018-02-21 23:16 | General Progress Note ---
Assessment/Plan Assessment/Plan Assessment - abnormal LFT - thickened GB - gallstones - r/o CBD stone - OBS Recommendations - Check MRCP in am - follow LFT Subjective Allergies: Coded Allergies: No Known Allergies (Verified Allergy, Mild, 08/21/10) Subjective Above noted calm no abdominal complaints Objective Last 24 Hour Vital Signs Date Time Temp Pulse Resp B/P (MAP) Pulse Ox O2 Delivery O2 Flow Rate FiO2 02/21/18 20:00 99.2 61 18 138/65 (89) 99 99.2 02/21/18 17:20 98.6 98.6 02/21/18 16:00 100.7 70 18 119/63 (81) 99 100.7 02/21/18 12:00 100.1 63 18 108/55 (72) 98 100.1 02/21/18 09:00 Room Air 02/21/18 08:00 99.8 69 20 125/67 (86) 98 99.8 02/21/18 04:00 99.5 66 18 116/64 (81) 98 99.5 02/21/18 00:00 100.6 65 19 136/62 (86) 99 100.6 Intake and Output 02/20/18 02/21/18 19:00 07:00 Output Total 200 ml Balance -200 ml Output Urine Total 200 ml Laboratory Tests 02/21/18 05:10: White Blood Count 12.4H, Red Blood Count 3.97L, Hemoglobin 10.8L, Hematocrit 33.5L, Mean Corpuscular Volume 84, Mean Corpuscular Hemoglobin 27.2, Mean Corpuscular Hemoglobin Concent 32.2, Red Cell Distribution Width 11.8, Platelet Count 185, Mean Platelet Volume 9.1, Neutrophils (%) (Auto) 80.9H, Lymphocytes ( %) (Auto) 11.2L, Monocytes (%) (Auto) 7.0, Eosinophils (%) (Auto) 0.6, Basophils (%) (Auto) 0.4, Sodium Level 137, Potassium Level 3.5, Chloride Level 102, Carbon Dioxide Level 25, Anion Gap 10, Blood Urea Nitrogen 11, Creatinine 1.3, Estimat Glomerular Filtration Rate , Glucose Level 107H, Calcium Level 8.4L , Total Bilirubin 1.3H, Direct Bilirubin 0.4H, Aspartate Amino Transf (AST/SGOT ) 21, Alanine Aminotransferase (ALT/SGPT) 21, Alkaline Phosphatase 90, Total Protein 6.9, Albumin 3.1L, Globulin 3.8, Albumin/Globulin Ratio 0.8L Height (Feet): 5 Height (Inches): 9.00 Weight (Pounds): 185 Objective WDWN AA man NCAT supple CTA RRR Soft NT ND no edema OBS Kristian Hernandez MD Feb 21, 2018 23:16
[2018-02-22] VITALS: BP 120/57
[2018-02-22] MEDS: Piperacillin/Tazobactam 3.375 GM in D5W 110 ML IVPB SCH ×3 (00:50→17:27)
[2018-02-22 04:00] VITALS: BP 130/61
[2018-02-22 07:39] LABS: BASOPHILS % (AUTO) 0.3 % (0.0-2.0); EOSINOPHILS % (AUTO) 2.3 % (0.0-3.0); HEMATOCRIT 31.2 % (42.0-52.0); HEMOGLOBIN 10.1 G/DL (14.2-18.0); LYMPHOCYTES % (AUTO) 13.3 % (20.0-45.0); MEAN CORPUSCULAR VOLUME 84 FL (80-99); NEUTROPHILS % (AUTO) 77.1 % (45.0-75.0); PLATELET COUNT 180 K/UL (150-450); RED CELL DISTRIBUTION WIDTH 11.6 % (11.6-14.8)
[2018-02-22] MEDS: D5 1/2NS w/KCl 20mEq 1,000 ML IV SCH ×2 (08:00→18:00)
--- NOTE | 2018-02-22 08:53 | General Progress Note ---
Assessment/Plan Problem List: (1) Hypertension ICD Codes: I10 - Essential (primary) hypertension SNOMED: 65829601 (2) Encephalopathy acute ICD Codes: G93.40 - Encephalopathy, unspecified SNOMED: 0867253 (3) Transaminitis ICD Codes: R74.0 - Nonspecific elevation of levels of transaminase and lactic acid dehydrogenase [LDH] SNOMED: 113814051 (4) Intractable abdominal pain ICD Codes: R10.9 - Unspecified abdominal pain SNOMED: 50605054, 224326198 (5) Biliary colic ICD Codes: K80.50 - Calculus of bile duct without cholangitis or cholecystitis without obstruction SNOMED: 94891767 Assessment/Plan cont abx per id mrcp follow up cultures tylenol for fever cardaic rx ivf Subjective ROS Limited/Unobtainable: No Constitutional: Reports: malaise, weakness HEENT: Reports: no symptoms Cardiovascular: Reports: no symptoms Respiratory: Reports: no symptoms Gastrointestinal/Abdominal: Reports: no symptoms Genitourinary: Reports: no symptoms Neurologic/Psychiatric: Reports: no symptoms Endocrine: Reports: no symptoms Hematologic/Lymphatic: Reports: no symptoms Allergies: Coded Allergies: No Known Allergies (Verified Allergy, Mild, 08/21/10) All Systems: reviewed and negative except above Subjective no new complaints. no abd pain. low grade temps. denies abd pain. npo for mrcp Objective Last 24 Hour Vital Signs Date Time Temp Pulse Resp B/P (MAP) Pulse Ox O2 Delivery O2 Flow Rate FiO2 02/22/18 04:00 98.7 59 17 130/61 (84) 99 98.7 02/22/18 00:00 99.5 58 18 120/57 (78) 100 99.5 02/21/18 21:00 Room Air 02/21/18 20:00 99.2 61 18 138/65 (89) 99 99.2 02/21/18 17:20 98.6 98.6 02/21/18 16:00 100.7 70 18 119/63 (81) 99 100.7 02/21/18 12:00 100.1 63 18 108/55 (72) 98 100.1 02/21/18 09:00 Room Air Intake and Output 02/21/18 02/22/18 19:00 07:00 Intake Total 600 ml 1100 ml Balance 600 ml 1100 ml Intake Oral 500 ml IV Total 100 ml 1100 ml # Voids 4 4 Laboratory Tests 02/22/18 05:50: White Blood Count 9.0, Red Blood Count 3.70L, Hemoglobin 10.1L, Hematocrit 31.2L , Mean Corpuscular Volume 84, Mean Corpuscular Hemoglobin 27.3, Mean Corpuscular Hemoglobin Concent 32.4, Red Cell Distribution Width 11.6, Platelet Count 180, Mean Platelet Volume 8.8, Neutrophils (%) (Auto) 77.1H, Lymphocytes ( %) (Auto) 13.3L, Monocytes (%) (Auto) 7.0, Eosinophils (%) (Auto) 2.3, Basophils (%) (Auto) 0.3, Sodium Level [Pending], Potassium Level [Pending], Chloride Level [Pending], Carbon Dioxide Level [Pending], Blood Urea Nitrogen [ Pending], Creatinine [Pending], Estimat Glomerular Filtration Rate [Pending], Glucose Level [Pending], Calcium Level [Pending], Total Bilirubin [Pending], Aspartate Amino Transf (AST/SGOT) [Pending], Alanine Aminotransferase (ALT/SGPT ) [Pending], Alkaline Phosphatase [Pending], Total Protein [Pending], Albumin [ Pending], Globulin [Pending] Height (Feet): 5 Height (Inches): 9.00 Weight (Pounds): 185 Objective General Appearance: WD/WN, alert Neck: supple Cardiovascular: regular rhythm Respiratory/Chest: chest wall non-tender, lungs clear, normal breath sounds, no respiratory distress Abdomen: normal bowel sounds, non tender, soft, no organomegaly Edema: no edema noted Arm (L), no edema noted Arm (R), no edema noted Leg (L), no edema noted Leg (R), no edema noted Pedal (L), no edema noted Pedal (R), no edema noted Generalized Xander Fofana MD Feb 22, 2018 08:53
[2018-02-22 08:58] LABS: ALANINE AMINOTRANSFERASE 19 U/L (12-78); ALBUMIN 2.9 G/DL (3.4-5.0); ALBUMIN/GLOBULIN RATIO 0.7 (1.0-2.7); ALKALINE PHOSPHATASE 93 U/L (46-116); ANION GAP 8 mmol/L (5-15); ASPARTATE AMINO TRANSFERASE 19 U/L (15-37); BLOOD UREA NITROGEN 12 mg/dL (7-18); CALCIUM 8.6 MG/DL (8.5-10.1); CARBON DIOXIDE 25 MMOL/L (21-32); CHLORIDE 105 MMOL/L (98-107); CREATININE 1.4 MG/DL (0.55-1.30); POTASSIUM 3.6 MMOL/L (3.5-5.1); SODIUM 137 MMOL/L (136-145)
[2018-02-22] MEDS: Pantoprazole Inj IV SCH (10:16)
[2018-02-22] MEDS: Heparin 5000 units/ml inj SUBQ SCH ×2 (10:18→21:31)
--- NOTE | 2018-02-22 10:43 | General Surgery Progress Note ---
General Surgery-Progress Note Subjective Additional Comments doing well. had MRCP today, pending results Objective Last 24 Hour Vital Signs Date Time Temp Pulse Resp B/P (MAP) Pulse Ox O2 Delivery O2 Flow Rate FiO2 02/22/18 04:00 98.7 59 17 130/61 (84) 99 98.7 02/22/18 00:00 99.5 58 18 120/57 (78) 100 99.5 02/21/18 21:00 Room Air 02/21/18 20:00 99.2 61 18 138/65 (89) 99 99.2 02/21/18 17:20 98.6 98.6 02/21/18 16:00 100.7 70 18 119/63 (81) 99 100.7 02/21/18 12:00 100.1 63 18 108/55 (72) 98 100.1 I&O Intake and Output 02/21/18 02/22/18 19:00 07:00 Intake Total 600 ml 1100 ml Balance 600 ml 1100 ml Intake Oral 500 ml IV Total 100 ml 1100 ml # Voids 4 4 Drains: none Cardiovascular: RSR Respiratory: clear Abdomen: soft, non-tender, present bowel sounds Extremities: no cyanosis Laboratory Tests Test 02/22/18 05:50 White Blood Count 9.0 K/UL (4.8-10.8) Red Blood Count 3.70 M/UL (4.70-6.10) L Hemoglobin 10.1 G/DL (14.2-18.0) L Hematocrit 31.2 % (42.0-52.0) L Mean Corpuscular Volume 84 FL (80-99) Mean Corpuscular Hemoglobin 27.3 PG (27.0-31.0) Mean Corpuscular Hemoglobin Concent 32.4 G/DL (32.0-36.0) Red Cell Distribution Width 11.6 % (11.6-14.8) Platelet Count 180 K/UL (150-450) Mean Platelet Volume 8.8 FL (6.5-10.1) Neutrophils (%) (Auto) 77.1 % (45.0-75.0) H Lymphocytes (%) (Auto) 13.3 % (20.0-45.0) L Monocytes (%) (Auto) 7.0 % (1.0-10.0) Eosinophils (%) (Auto) 2.3 % (0.0-3.0) Basophils (%) (Auto) 0.3 % (0.0-2.0) Sodium Level 137 MMOL/L (136-145) Potassium Level 3.6 MMOL/L (3.5-5.1) Chloride Level 105 MMOL/L (98-107) Carbon Dioxide Level 25 MMOL/L (21-32) Anion Gap 8 mmol/L (5-15) Blood Urea Nitrogen 12 mg/dL (7-18) Creatinine 1.4 MG/DL (0.55-1.30) H Estimat Glomerular Filtration Rate mL/min (>60) Glucose Level 85 MG/DL (74-106) Calcium Level 8.6 MG/DL (8.5-10.1) Total Bilirubin 1.0 MG/DL (0.2-1.0) Aspartate Amino Transf (AST/SGOT) 19 U/L (15-37) Alanine Aminotransferase (ALT/SGPT) 19 U/L (12-78) Alkaline Phosphatase 93 U/L (46-116) Total Protein 6.9 G/DL (6.4-8.2) Albumin 2.9 G/DL (3.4-5.0) L Globulin 4.0 g/dL Albumin/Globulin Ratio 0.7 (1.0-2.7) L Plan Problems: (1) Intractable abdominal pain Assessment & Plan: 87M with abdominal pain. afebrile, HD stable, labs reviewed. no leukocytosis but shift. alk phos mildly elevated. CT with GB wall thickening, normal CBD, possible descending colitis. labs improved. US with possible cholecystitis Pending MRCP -trend labs -Abx thank you for this consultation. will follow with recs. Román Kelley Feb 22, 2018 10:43
[2018-02-22 12:00] VITALS: BP 130/57
--- NOTE | 2018-02-22 12:09 | Infectious Diseases Prog Note ---
"Assessment/Plan Assessment/Plan antibiotics : zosyn A 1. colitis | diverticulitis 2. ? cholecystitis 3. hypertension 4. Parkinsons disease P 1. continue zosyn 2. will follow up MRCP results Subjective Constitutional: Denies: fever, chills Respiratory: Denies: shortness of breath, dry cough Gastrointestinal/Abdominal: Denies: nausea, vomiting, diarrhea Musculoskeletal: Denies: pain Allergies: Coded Allergies: No Known Allergies (Verified Allergy, Mild, 08/21/10) Objective Vital Signs Last 24 Hour Vital Signs Date Time Temp Pulse Resp B/P (MAP) Pulse Ox O2 Delivery O2 Flow Rate FiO2 02/22/18 09:00 Room Air 02/22/18 04:00 98.7 59 17 130/61 (84) 99 98.7 02/22/18 00:00 99.5 58 18 120/57 (78) 100 99.5 02/21/18 21:00 Room Air 02/21/18 20:00 99.2 61 18 138/65 (89) 99 99.2 02/21/18 17:20 98.6 98.6 02/21/18 16:00 100.7 70 18 119/63 (81) 99 100.7 Height (Feet): 5 Height (Inches): 9.00 Weight (Pounds): 185 Respiratory/Chest: lungs clear Cardiovascular: normal rate, regular rhythm, no gallop/murmur Abdomen: soft, non tender Extremities: no edema Laboratory Tests Test 02/22/18 05:50 White Blood Count 9.0 K/UL (4.8-10.8) Red Blood Count 3.70 M/UL (4.70-6.10) L Hemoglobin 10.1 G/DL (14.2-18.0) L Hematocrit 31.2 % (42.0-52.0) L Mean Corpuscular Volume 84 FL (80-99) Mean Corpuscular Hemoglobin 27.3 PG (27.0-31.0) Mean Corpuscular Hemoglobin Concent 32.4 G/DL (32.0-36.0) Red Cell Distribution Width 11.6 % (11.6-14.8) Platelet Count 180 K/UL (150-450) Mean Platelet Volume 8.8 FL (6.5-10.1) Neutrophils (%) (Auto) 77.1 % (45.0-75.0) H Lymphocytes (%) (Auto) 13.3 % (20.0-45.0) L Monocytes (%) (Auto) 7.0 % (1.0-10.0) Eosinophils (%) (Auto) 2.3 % (0.0-3.0) Basophils (%) (Auto) 0.3 % (0.0-2.0) Sodium Level 137 MMOL/L (136-145) Potassium Level 3.6 MMOL/L (3.5-5.1) Chloride Level 105 MMOL/L (98-107) Carbon Dioxide Level 25 MMOL/L (21-32) Anion Gap 8 mmol/L (5-15) Blood Urea Nitrogen 12 mg/dL (7-18) Creatinine 1.4 MG/DL (0.55-1.30) H Estimat Glomerular Filtration Rate mL/min (>60) Glucose Level 85 MG/DL (74-106) Calcium Level 8.6 MG/DL (8.5-10.1) Total Bilirubin 1.0 MG/DL (0.2-1.0) Aspartate Amino Transf (AST/SGOT) 19 U/L (15-37) Alanine Aminotransferase (ALT/SGPT) 19 U/L (12-78) Alkaline Phosphatase 93 U/L (46-116) Total Protein 6.9 G/DL (6.4-8.2) Albumin 2.9 G/DL (3.4-5.0) L Globulin 4.0 g/dL Albumin/Globulin Ratio 0.7 (1.0-2.7) L Current Medications Medications (Trade) Dose Ordered Sig/Juvenal Route PRN Reason Start Time Stop Time Status Last Admin Dose Admin Acetaminophen (Tylenol) 650 mg Q4H PRN ORAL Mild Pain (Pain Scale 1-3) 02/19/18 19:15 03/21/18 19:14 02/20/18 16:54 Al Hydroxide/Mg Hydroxide (Mylanta II) 30 ml Q6H PRN ORAL dyspepsia 02/19/18 19:15 03/21/18 19:14 Dextrose (Dextrose 50%) 25 ml STAT PRN IV Hypoglycemia 02/19/18 19:15 03/21/18 19:14 Dextrose (Dextrose 50%) 50 ml STAT PRN IV Hypoglycemia 02/19/18 19:15 03/21/18 19:14 Dextrose/ Electrolytes 1,000 ml @ 100 mls/hr Q10H IV 02/19/18 20:00 03/21/18 19:59 02/21/18 12:22 Diphenhydramine HCl (Benadryl) 25 mg Q6H PRN ORAL Itching/Pruritis 02/19/18 19:15 03/21/18 19:14 Heparin Sodium (Porcine) (Heparin 5000 units/ml) 5,000 units EVERY 12 HOURS SUBQ 02/19/18 21:00 03/21/18 20:59 02/22/18 10:18 Magnesium Hydroxide (Mom) 30 ml HSPRN PRN ORAL Constipation 02/19/18 21:00 03/21/18 20:59 Morphine Sulfate (Morphine Sulfate) 1 mg Q2H PRN IVP Moderate Pain (Pain Scale 4-6) 02/19/18 19:15 02/26/18 19:14 Morphine Sulfate (Morphine Sulfate) 2 mg Q4H PRN IVP Severe Pain (Pain Scale 7-10) 02/19/18 19:15 02/26/18 19:14 Ondansetron HCl (Zofran) 4 mg Q6H PRN IVP Nausea & Vomiting 02/19/18 19:15 03/21/18 19:14 Pantoprazole (Protonix) 40 mg DAILY IV 02/20/18 09:00 03/22/18 08:59 02/22/18 10:16 Piperacillin Sod/ Tazobactam Sod 3.375 gm/Dextrose 110 ml @ 27.5 mls/hr Q8H IVPB 02/20/18 09:00 02/27/18 08:59 02/22/18 10:17 Temazepam (Restoril) 15 mg HSPRN PRN ORAL Insomnia 02/19/18 21:00 02/26/18 20:59 REJI KEENE Feb 22, 2018 12:09"
--- NOTE | 2018-02-22 14:50 | Diagnostic Imaging Report ---
Indication: Abdominal pain Technique: MRI of the abdomen was performed in a 1.5 Sadia magnet. Pulse sequences obtained include coronal and axial T2 single shot fast spin echo breathhold and respiratory gated coronal T2 3-D M.R.C.P.; this data set was displayed in different projections or MIPs. In addition, multiple coronal oblique thin T2 weighted, fat saturated SE sequences obtained through the CBD. Comparison: Correlation made to concurrent abdominal sonogram. Comparison also made to CT of the abdomen 717 and MRI of the abdomen 05/01/2016 Findings: Multiple gallstones are noted in a nondistended gallbladder. There is a stone in the gallbladder neck. There is new gallbladder wall thickening and pericholecystic inflammatory change. Possible mild gallbladder wall edema. There is no intrahepatic or extra hepatic biliary ductal dilatation; the common bile duct measures up to 8 mm diameter, within normal limits for patient's age. Caliber of the common bile duct and intrahepatic ducts is stable compared to the prior exam of 05/01/2016. Multiple subcentimeter T2 hyperintense liver cysts or biliary hamartomas are again noted. Liver contour is smooth. A small lipid rich adenomas noted in the right adrenal gland, similar to prior exam. Spleen unremarkable. There are T2 hyperintense cysts in the bilateral kidneys with parapelvic cysts on the left. No hydronephrosis. Abdominal aorta normal in caliber. Partially imaged bowel is grossly unremarkable. IMPRESSION: * Cholelithiasis with multiple stones in the gallbladder and a stone in the gallbladder neck. Interval development of gallbladder wall thickening and pericholecystic inflammatory change compared to the prior MRI of 05/01/2016. Findings are concerning for an acute cholecystitis. Correlate clinically. Confirmation with HIDA scan can be obtained as clinically indicated. * No biliary ductal dilatation; common bile duct measures up to 8 mm diameter, within normal limits for patient's age. Caliber of the common bile duct and intrahepatic ducts unchanged compared to the prior exam. No definite evidence of choledocholithiasis. * Unchanged right adrenal lipid rich adenoma. * Simple appearing liver and and renal cysts. Findings considering treating physician Dr. Fofana.
[2018-02-22 16:00] VITALS: BP 129/59
--- NOTE | 2018-02-22 19:42 | General Progress Note ---
Assessment/Plan Assessment/Plan Assessment - abnormal LFT - resolved - thickened GB with inflammatory Changes and GB neck stone - gallstones - OBS Recommendations - "bumps" in LFT and WBC, and MRCP changes - possible related to GB neck stone - consider lap oracio - defer to surgery - follow LFT Subjective Allergies: Coded Allergies: No Known Allergies (Verified Allergy, Mild, 08/21/10) Subjective Above noted calm no abdominal complaints MRCP noted Objective Last 24 Hour Vital Signs Date Time Temp Pulse Resp B/P (MAP) Pulse Ox O2 Delivery O2 Flow Rate FiO2 02/22/18 16:00 97.8 68 19 129/59 (82) 100 97.8 02/22/18 12:00 98.3 64 20 130/57 (81) 100 98.3 02/22/18 09:00 Room Air 02/22/18 04:00 98.7 59 17 130/61 (84) 99 98.7 02/22/18 00:00 99.5 58 18 120/57 (78) 100 99.5 02/21/18 21:00 Room Air 02/21/18 20:00 99.2 61 18 138/65 (89) 99 99.2 Intake and Output 02/21/18 02/22/18 19:00 07:00 Intake Total 600 ml 1200 ml Balance 600 ml 1200 ml Intake Oral 500 ml IV Total 100 ml 1200 ml # Voids 4 4 Laboratory Tests 02/22/18 05:50: White Blood Count 9.0, Red Blood Count 3.70L, Hemoglobin 10.1L, Hematocrit 31.2L , Mean Corpuscular Volume 84, Mean Corpuscular Hemoglobin 27.3, Mean Corpuscular Hemoglobin Concent 32.4, Red Cell Distribution Width 11.6, Platelet Count 180, Mean Platelet Volume 8.8, Neutrophils (%) (Auto) 77.1H, Lymphocytes ( %) (Auto) 13.3L, Monocytes (%) (Auto) 7.0, Eosinophils (%) (Auto) 2.3, Basophils (%) (Auto) 0.3, Sodium Level 137, Potassium Level 3.6, Chloride Level 105, Carbon Dioxide Level 25, Anion Gap 8, Blood Urea Nitrogen 12, Creatinine 1.4H, Estimat Glomerular Filtration Rate , Glucose Level 85, Calcium Level 8.6, Total Bilirubin 1.0, Aspartate Amino Transf (AST/SGOT) 19, Alanine Aminotransferase (ALT/SGPT) 19, Alkaline Phosphatase 93, Total Protein 6.9, Albumin 2.9L, Globulin 4.0, Albumin/Globulin Ratio 0.7L Height (Feet): 5 Height (Inches): 9.00 Weight (Pounds): 185 Objective WDWN AA man NCAT supple CTA RRR Soft NT ND no edema OBS Kristian Hernandez MD Feb 22, 2018 19:42
[2018-02-22 20:38] VITALS: BP 125/53
[2018-02-23] MEDS: D5 1/2NS w/KCl 20mEq 1,000 ML IV SCH ×2 (00:25→14:00)
[2018-02-23] MEDS: Piperacillin/Tazobactam 3.375 GM in D5W 110 ML IVPB SCH ×3 (00:41→17:00)
[2018-02-23 00:53] VITALS: BP 120/58
[2018-02-23 04:00] VITALS: BP 124/57
[2018-02-23 08:00] VITALS: BP 115/54
--- NOTE | 2018-02-23 09:24 | General Progress Note ---
Assessment/Plan Problem List: (1) Hypertension ICD Codes: I10 - Essential (primary) hypertension SNOMED: 88065838 (2) Encephalopathy acute ICD Codes: G93.40 - Encephalopathy, unspecified SNOMED: 6359275 (3) Transaminitis ICD Codes: R74.0 - Nonspecific elevation of levels of transaminase and lactic acid dehydrogenase [LDH] SNOMED: 948901832 (4) Intractable abdominal pain ICD Codes: R10.9 - Unspecified abdominal pain SNOMED: 89313887, 767799273 (5) Biliary colic ICD Codes: K80.50 - Calculus of bile duct without cholangitis or cholecystitis without obstruction SNOMED: 61563155 Status: stable, progressing Assessment/Plan cont abx per id hida scan follow up cultures tylenol for fever cardaic rx ivf d/w surgery d/w dtr may need surgery Subjective ROS Limited/Unobtainable: No Constitutional: Reports: malaise, weakness HEENT: Reports: no symptoms Cardiovascular: Reports: no symptoms Respiratory: Reports: no symptoms Gastrointestinal/Abdominal: Reports: no symptoms Genitourinary: Reports: no symptoms Neurologic/Psychiatric: Reports: no symptoms Endocrine: Reports: no symptoms Hematologic/Lymphatic: Reports: no symptoms Allergies: Coded Allergies: No Known Allergies (Verified Allergy, Mild, 08/21/10) All Systems: reviewed and negative except above Subjective no new complaints. no abd pain. abnormal mrcp noted. no abd pain, fevers or chills. Objective Last 24 Hour Vital Signs Date Time Temp Pulse Resp B/P (MAP) Pulse Ox O2 Delivery O2 Flow Rate FiO2 02/23/18 04:00 98.2 65 20 124/57 (79) 100 98.2 02/23/18 00:53 98.2 72 16 120/58 (78) 100 98.2 02/22/18 21:00 Room Air 02/22/18 20:38 98.0 67 16 125/53 (77) 100 98.0 02/22/18 16:00 97.8 68 19 129/59 (82) 100 97.8 02/22/18 12:00 98.3 64 20 130/57 (81) 100 98.3 Intake and Output 02/22/18 02/23/18 19:00 07:00 Intake Total 1137.5 ml 1465.0 ml Output Total 250 ml 500 ml Balance 887.5 ml 965.0 ml Intake Oral 1000 ml 800 ml IV Total 137.5 ml 665.0 ml Output Urine Total 250 ml 500 ml # Voids 6 3 # Bowel Movements 2 Height (Feet): 5 Height (Inches): 9.00 Weight (Pounds): 190 Objective General Appearance: WD/WN, alert Neck: supple Cardiovascular: regular rhythm Respiratory/Chest: chest wall non-tender, lungs clear, normal breath sounds, no respiratory distress Abdomen: normal bowel sounds, non tender, soft, no organomegaly Edema: no edema noted Arm (L), no edema noted Arm (R), no edema noted Leg (L), no edema noted Leg (R), no edema noted Pedal (L), no edema noted Pedal (R), no edema noted Generalized Xander Fofana MD Feb 23, 2018 09:24
--- NOTE | 2018-02-23 10:29 | Diagnostic Imaging Report ---
Indication: Abdominal Pain Technique: 5.5 mCi of technetium 99 m-Choletec was injected intravenously. Planar imaging of the abdomen was then performed every 5 minutes up to 30 minutes and every 10 minutes up to one hour. Oblique views were also obtained. 2 mg of morphine administered intravenously at 70 minute arthur. And further imaging for 30 minutes performed. COMPARISON: Correlation made with recent MRI 02/22/2018 Findings: There is prompt uptake within the liver with good washout of radiotracer from the liver on subsequent imaging. There is excretion into the biliary ducts. Gallbladder activity is not seen before or after morphine. Findings consistent with cystic duct obstruction. The CBD is patent with timely appearance of tracer within the duodenum. There is an incidental small choledocho cyst projecting superiorly toward the left off the common hepatic duct. IMPRESSION: Cystic duct obstruction. Findings compatible with acute cholecystitis.
[2018-02-23] MEDS: Pantoprazole Inj IV SCH (10:35)
[2018-02-23] MEDS: Heparin 5000 units/ml inj SUBQ SCH ×2 (10:37→21:38)
[2018-02-23 12:00] VITALS: BP 126/57
[2018-02-23 16:00] VITALS: BP 126/58
--- NOTE | 2018-02-23 17:24 | General Surgery Progress Note ---
General Surgery-Progress Note Subjective Additional Comments doing well. no acute events. Recent MRI with more GB thickening/edema. HIDA positive with duct obstruction Objective Last 24 Hour Vital Signs Date Time Temp Pulse Resp B/P (MAP) Pulse Ox O2 Delivery O2 Flow Rate FiO2 02/23/18 16:00 98.5 69 19 126/58 (80) 95 98.5 02/23/18 12:00 97.9 65 20 126/57 (80) 96 97.9 02/23/18 09:00 Room Air 02/23/18 08:00 97.7 54 19 115/54 (74) 96 97.7 02/23/18 04:00 98.2 65 20 124/57 (79) 100 98.2 02/23/18 00:53 98.2 72 16 120/58 (78) 100 98.2 02/22/18 21:00 Room Air 02/22/18 20:38 98.0 67 16 125/53 (77) 100 98.0 I&O Intake and Output 02/22/18 02/23/18 19:00 07:00 Intake Total 1137.5 ml 1465.0 ml Output Total 250 ml 500 ml Balance 887.5 ml 965.0 ml Intake Oral 1000 ml 800 ml IV Total 137.5 ml 665.0 ml Output Urine Total 250 ml 500 ml # Voids 6 3 # Bowel Movements 2 Drains: none Cardiovascular: RSR Respiratory: clear Abdomen: soft, present bowel sounds Extremities: no cyanosis Plan Problems: (1) Intractable abdominal pain Assessment & Plan: 87M with abdominal pain. afebrile, HD stable, labs reviewed. no leukocytosis but shift. alk phos mildly elevated. CT with GB wall thickening, normal CBD, possible descending colitis. labs improved. US with possible cholecystitis. MRI with worsening edema. HIDA positive -Recommend cholecystectomy -will schedule for tomorrow consent -trend labs -Abx thank you for this consultation. will follow with recs. Román Kelley Feb 23, 2018 17:24
--- NOTE | 2018-02-23 17:26 | Pre-Procedure Note/Attestation ---
Pre-Procedure Note/Attestation Complete Prior to Procedure Planned Procedure: not applicable Procedure Narrative: laparoscopic cholecystectomy, possible open Indications for Procedure Pre-Operative Diagnosis: acute cholecystitis Attestation I attest that I discussed the nature of the procedure; its benefits; risks and complications; and alternatives (and the risks and benefits of such alternatives ), prior to the procedure, with the patient (or the patient's legal human resources hr representative). I attest that, if there was a reasonable possibility of needing a blood transfusion, the patient (or the patient's legal human resources hr representative) was given the [facility] standardized written summary, pursuant to the [place] Blood Safety Act ([place] Health and Safety Code # 1645, as amended). I attest that I re-evaluated the patient just prior to the surgery and that there has been no change in the patient's H&P, except as documented below: Román Kelley Feb 23, 2018 17:26
[2018-02-23 20:00] VITALS: BP 136/73
--- NOTE | 2018-02-23 22:10 | General Progress Note ---
Assessment/Plan Assessment/Plan Assessment - abnormal LFT - thickened GB with inflammatory Changes and GB neck stone and positive HIDA - gallstones - OBS Recommendations - await lap oracio - follow labs Subjective Allergies: Coded Allergies: No Known Allergies (Verified Allergy, Mild, 08/21/10) Subjective Above noted calm no abdominal complaints HIDA noted Objective Last 24 Hour Vital Signs Date Time Temp Pulse Resp B/P (MAP) Pulse Ox O2 Delivery O2 Flow Rate FiO2 02/23/18 20:00 99.0 70 19 136/73 (94) 98 99.0 02/23/18 16:00 98.5 69 19 126/58 (80) 95 98.5 02/23/18 12:00 97.9 65 20 126/57 (80) 96 97.9 02/23/18 09:00 Room Air 02/23/18 08:00 97.7 54 19 115/54 (74) 96 97.7 02/23/18 04:00 98.2 65 20 124/57 (79) 100 98.2 02/23/18 00:53 98.2 72 16 120/58 (78) 100 98.2 Intake and Output 02/22/18 02/23/18 19:00 07:00 Intake Total 1137.5 ml 1465.0 ml Output Total 250 ml 500 ml Balance 887.5 ml 965.0 ml Intake Oral 1000 ml 800 ml IV Total 137.5 ml 665.0 ml Output Urine Total 250 ml 500 ml # Voids 6 3 # Bowel Movements 2 Height (Feet): 5 Height (Inches): 9.00 Weight (Pounds): 190 Objective WDWN AA man NCAT supple CTA RRR Soft NT ND no edema OBS Kristian Hernandez MD Feb 23, 2018 22:10
[2018-02-24] VITALS (14 sets, daily range): BP systolic 119–214; BP diastolic 56–115
[2018-02-24] MEDS: Piperacillin/Tazobactam 3.375 GM in D5W 110 ML IVPB SCH ×3 (00:27→17:00)
[2018-02-24] MEDS: D5 1/2NS w/KCl 20mEq 1,000 ML IV SCH ×3 (00:27→20:02)
[2018-02-24 07:27] LABS: BASOPHILS % (AUTO) 0.6 % (0.0-2.0); HEMATOCRIT 26.7 % (42.0-52.0); HEMOGLOBIN 8.7 G/DL (14.2-18.0); LYMPHOCYTES % (AUTO) 18.7 % (20.0-45.0); MEAN CORPUSCULAR VOLUME 84 FL (80-99); MONOCYTES % (AUTO) 9.6 % (1.0-10.0); NEUTROPHILS % (AUTO) 66.1 % (45.0-75.0); PLATELET COUNT 195 K/UL (150-450); RED BLOOD COUNT 3.17 M/UL (4.70-6.10); RED CELL DISTRIBUTION WIDTH 11.4 % (11.6-14.8); WHITE BLOOD COUNT 7.3 K/UL (4.8-10.8)
[2018-02-24 07:29] LABS: ALANINE AMINOTRANSFERASE 39 U/L (12-78); ALBUMIN 2.7 G/DL (3.4-5.0); ALBUMIN/GLOBULIN RATIO 0.7 (1.0-2.7); ALKALINE PHOSPHATASE 182 U/L (46-116); ANION GAP 9 mmol/L (5-15); ASPARTATE AMINO TRANSFERASE 31 U/L (15-37); BILIRUBIN,TOTAL 0.5 MG/DL (0.2-1.0); BLOOD UREA NITROGEN 10 mg/dL (7-18); CALCIUM 8.2 MG/DL (8.5-10.1); CARBON DIOXIDE 24 MMOL/L (21-32); CHLORIDE 104 MMOL/L (98-107); CREATININE 1.3 MG/DL (0.55-1.30); POTASSIUM 3.8 MMOL/L (3.5-5.1); SODIUM 137 MMOL/L (136-145)
--- NOTE | 2018-02-24 08:13 | General Progress Note ---
Assessment/Plan Problem List: (1) Hypertension ICD Codes: I10 - Essential (primary) hypertension SNOMED: 99609385 (2) Encephalopathy acute ICD Codes: G93.40 - Encephalopathy, unspecified SNOMED: 9526686 (3) Transaminitis ICD Codes: R74.0 - Nonspecific elevation of levels of transaminase and lactic acid dehydrogenase [LDH] SNOMED: 726987394 (4) Intractable abdominal pain ICD Codes: R10.9 - Unspecified abdominal pain SNOMED: 91860735, 076189576 (5) Biliary colic ICD Codes: K80.50 - Calculus of bile duct without cholangitis or cholecystitis without obstruction SNOMED: 23393526 Status: stable, progressing Assessment/Plan cont abx lap oracio mildly elevated periop risk. Subjective ROS Limited/Unobtainable: No Constitutional: Reports: no symptoms HEENT: Reports: no symptoms Cardiovascular: Reports: no symptoms Respiratory: Reports: no symptoms Gastrointestinal/Abdominal: Reports: no symptoms Genitourinary: Reports: no symptoms Neurologic/Psychiatric: Reports: no symptoms Endocrine: Reports: no symptoms Hematologic/Lymphatic: Reports: no symptoms Allergies: Coded Allergies: No Known Allergies (Verified Allergy, Mild, 08/21/10) All Systems: reviewed and negative except above Subjective no new complaints. no abd pain. abnormal mrcp noted. no abd pain, fevers or chills. +HIDA scan. d/w pt and dtr above results. both agree with surgery Objective Last 24 Hour Vital Signs Date Time Temp Pulse Resp B/P (MAP) Pulse Ox O2 Delivery O2 Flow Rate FiO2 02/24/18 04:00 98.4 57 17 122/56 (78) 97 98.4 02/24/18 00:00 98.2 66 18 119/58 (78) 98 98.2 02/23/18 21:00 Room Air 02/23/18 20:00 99.0 70 19 136/73 (94) 98 99.0 02/23/18 16:00 98.5 69 19 126/58 (80) 95 98.5 02/23/18 12:00 97.9 65 20 126/57 (80) 96 97.9 02/23/18 09:00 Room Air Intake and Output 02/23/18 02/24/18 19:00 07:00 Intake Total 1280 ml 650 ml Output Total 550 ml Balance 730 ml 650 ml Intake Oral 920 ml 150 ml IV Total 360 ml 500 ml Output Urine Total 550 ml # Voids 3 4 # Bowel Movements 1 Laboratory Tests 02/24/18 05:10: White Blood Count 7.3, Red Blood Count 3.17L, Hemoglobin 8.7L, Hematocrit 26.7L , Mean Corpuscular Volume 84, Mean Corpuscular Hemoglobin 27.4, Mean Corpuscular Hemoglobin Concent 32.5, Red Cell Distribution Width 11.4L, Platelet Count 195, Mean Platelet Volume 7.4, Neutrophils (%) (Auto) 66.1, Lymphocytes (%) (Auto) 18.7L, Monocytes (%) (Auto) 9.6, Eosinophils (%) (Auto) 5.0H, Basophils (%) (Auto) 0.6, Sodium Level 137, Potassium Level 3.8, Chloride Level 104, Carbon Dioxide Level 24, Anion Gap 9, Blood Urea Nitrogen 10, Creatinine 1.3, Estimat Glomerular Filtration Rate , Glucose Level 107H, Calcium Level 8.2L, Total Bilirubin 0.5, Aspartate Amino Transf (AST/SGOT) 31, Alanine Aminotransferase (ALT/SGPT) 39, Alkaline Phosphatase 182H, Total Protein 6.8, Albumin 2.7L, Globulin 4.1, Albumin/Globulin Ratio 0.7L Height (Feet): 5 Height (Inches): 9.00 Weight (Pounds): 185 Objective General Appearance: WD/WN, alert Neck: supple Cardiovascular: regular rhythm Respiratory/Chest: chest wall non-tender, lungs clear, normal breath sounds, no respiratory distress Abdomen: normal bowel sounds, non tender, soft, no organomegaly Edema: no edema noted Arm (L), no edema noted Arm (R), no edema noted Leg (L), no edema noted Leg (R), no edema noted Pedal (L), no edema noted Pedal (R), no edema noted Generalized Xander Fofana MD Feb 24, 2018 08:13
[2018-02-24] MEDS: Heparin 5000 units/ml inj SUBQ SCH ×2 (08:30→20:03)
[2018-02-24] MEDS: Pantoprazole Inj IV SCH (08:30)
--- NOTE | 2018-02-24 11:57 | Infectious Diseases Prog Note ---
"Assessment/Plan Assessment/Plan antibiotics : zosyn A 1. colitis | diverticulitis 2. cholecystitis 3. hypertension 4. Parkinsons disease P 1. continue zosyn 2. surgery planned Subjective Constitutional: Denies: fever, chills Respiratory: Denies: shortness of breath, dry cough Gastrointestinal/Abdominal: Denies: nausea, vomiting, diarrhea Musculoskeletal: Denies: pain Allergies: Coded Allergies: No Known Allergies (Verified Allergy, Mild, 08/21/10) Objective Vital Signs Last 24 Hour Vital Signs Date Time Temp Pulse Resp B/P (MAP) Pulse Ox O2 Delivery O2 Flow Rate FiO2 02/24/18 08:21 Room Air 02/24/18 08:00 99.3 54 18 130/62 (84) 98 99.3 02/24/18 04:00 98.4 57 17 122/56 (78) 97 98.4 02/24/18 00:00 98.2 66 18 119/58 (78) 98 98.2 02/23/18 21:00 Room Air 02/23/18 20:00 99.0 70 19 136/73 (94) 98 99.0 02/23/18 16:00 98.5 69 19 126/58 (80) 95 98.5 02/23/18 12:00 97.9 65 20 126/57 (80) 96 97.9 Height (Feet): 5 Height (Inches): 9.00 Weight (Pounds): 185 Respiratory/Chest: lungs clear Cardiovascular: normal rate, regular rhythm, no gallop/murmur Abdomen: soft, non tender Extremities: other - + edema Laboratory Tests Test 02/24/18 05:10 White Blood Count 7.3 K/UL (4.8-10.8) Red Blood Count 3.17 M/UL (4.70-6.10) L Hemoglobin 8.7 G/DL (14.2-18.0) L Hematocrit 26.7 % (42.0-52.0) L Mean Corpuscular Volume 84 FL (80-99) Mean Corpuscular Hemoglobin 27.4 PG (27.0-31.0) Mean Corpuscular Hemoglobin Concent 32.5 G/DL (32.0-36.0) Red Cell Distribution Width 11.4 % (11.6-14.8) L Platelet Count 195 K/UL (150-450) Mean Platelet Volume 7.4 FL (6.5-10.1) Neutrophils (%) (Auto) 66.1 % (45.0-75.0) Lymphocytes (%) (Auto) 18.7 % (20.0-45.0) L Monocytes (%) (Auto) 9.6 % (1.0-10.0) Eosinophils (%) (Auto) 5.0 % (0.0-3.0) H Basophils (%) (Auto) 0.6 % (0.0-2.0) Sodium Level 137 MMOL/L (136-145) Potassium Level 3.8 MMOL/L (3.5-5.1) Chloride Level 104 MMOL/L (98-107) Carbon Dioxide Level 24 MMOL/L (21-32) Anion Gap 9 mmol/L (5-15) Blood Urea Nitrogen 10 mg/dL (7-18) Creatinine 1.3 MG/DL (0.55-1.30) Estimat Glomerular Filtration Rate mL/min (>60) Glucose Level 107 MG/DL (74-106) H Calcium Level 8.2 MG/DL (8.5-10.1) L Total Bilirubin 0.5 MG/DL (0.2-1.0) Aspartate Amino Transf (AST/SGOT) 31 U/L (15-37) Alanine Aminotransferase (ALT/SGPT) 39 U/L (12-78) Alkaline Phosphatase 182 U/L (46-116) H Total Protein 6.8 G/DL (6.4-8.2) Albumin 2.7 G/DL (3.4-5.0) L Globulin 4.1 g/dL Albumin/Globulin Ratio 0.7 (1.0-2.7) L Current Medications Medications (Trade) Dose Ordered Sig/Juvenal Route PRN Reason Start Time Stop Time Status Last Admin Dose Admin Acetaminophen (Tylenol) 650 mg Q4H PRN ORAL Mild Pain (Pain Scale 1-3) 02/19/18 19:15 03/21/18 19:14 02/20/18 16:54 Al Hydroxide/Mg Hydroxide (Mylanta II) 30 ml Q6H PRN ORAL dyspepsia 02/19/18 19:15 03/21/18 19:14 Dextrose (Dextrose 50%) 25 ml STAT PRN IV Hypoglycemia 02/19/18 19:15 03/21/18 19:14 Dextrose (Dextrose 50%) 50 ml STAT PRN IV Hypoglycemia 02/19/18 19:15 03/21/18 19:14 Dextrose/ Electrolytes 1,000 ml @ 100 mls/hr Q10H IV 02/19/18 20:00 03/21/18 19:59 02/24/18 00:27 Diphenhydramine HCl (Benadryl) 25 mg Q6H PRN ORAL Itching/Pruritis 02/19/18 19:15 03/21/18 19:14 Heparin Sodium (Porcine) (Heparin 5000 units/ml) 5,000 units EVERY 12 HOURS SUBQ 02/19/18 21:00 03/21/18 20:59 02/23/18 21:38 Magnesium Hydroxide (Mom) 30 ml HSPRN PRN ORAL Constipation 02/19/18 21:00 03/21/18 20:59 Morphine Sulfate (Morphine Sulfate) 1 mg Q2H PRN IVP Moderate Pain (Pain Scale 4-6) 02/19/18 19:15 02/26/18 19:14 Morphine Sulfate (Morphine Sulfate) 2 mg Q4H PRN IVP Severe Pain (Pain Scale 7-10) 02/19/18 19:15 02/26/18 19:14 02/23/18 09:28 Ondansetron HCl (Zofran) 4 mg Q6H PRN IVP Nausea & Vomiting 02/19/18 19:15 03/21/18 19:14 Pantoprazole (Protonix) 40 mg DAILY IV 02/20/18 09:00 03/22/18 08:59 02/24/18 08:30 Piperacillin Sod/ Tazobactam Sod 3.375 gm/Dextrose 110 ml @ 27.5 mls/hr Q8H IVPB 02/20/18 09:00 02/27/18 08:59 02/24/18 08:30 Temazepam (Restoril) 15 mg HSPRN PRN ORAL Insomnia 02/19/18 21:00 02/26/18 20:59 REJI KEENE Feb 24, 2018 11:57"
[2018-02-24] MEDS ORDERED: Iothalamate Meglumine 60% 30ML INJ ONE (14:02)
[2018-02-24] MEDS ORDERED: Bupivacaine 0.25% Inj 30ml INJ ONE (14:02)
[2018-02-24] MEDS ORDERED: EPINEPHrine 1mg/1ml Amp ONE (14:02)
[2018-02-24] MEDS ORDERED: Propofol 200mg/20ml IV ONE ×2 (15:28→17:36)
[2018-02-24] MEDS ORDERED: Lidocaine 1% MPF 10mg/ml 5ml ONE (15:28)
[2018-02-24] MEDS ORDERED: fentaNYL 100 mcg/2 mL IV ONE (15:29)
[2018-02-24] MEDS ORDERED: Midazolam 2mg/2ml Inj ONE (15:29)
[2018-02-24] MEDS ORDERED: Sterile Water For Irrig 2000ml IRRIG ONE (15:30)
[2018-02-24] MEDS ORDERED: NS Irrig 1000ml ONE (15:30)
[2018-02-24] MEDS ORDERED: Zemuron 50mg/5ml Inj IV ONE (15:30)
[2018-02-24] MEDS ORDERED: LR 1000ml ONE (15:30)
--- NOTE | 2018-02-24 15:32 | Anethesia Preoperative Eval ---
Anesthesia Pre-op PMH/ROS General Date of Evaluation: Feb 24, 2018 Anesthesiologist: Harjeet ASA Score: ASA 2 Mallampati Score Class I : Soft palate, uvula, fauces, pillars visible Class II: Soft palate, uvula, fauces visible Class III: Soft palate, base of uvula visible Class IV: Only hard plate visible Mallampati Classification: Class III Surgeon: Warren Diagnosis: acute cholecystitis Surgical Procedure: laparoscopic cholecystectomy Anesthesia History: none Family History: no anesthesia problems Allergies: Coded Allergies: No Known Allergies (Verified Allergy, Mild, 08/21/10) Medications: see eMAR Past Medical History Cardiovascular: Reports: HTN; Denies: CAD, [place], valve dz, arrhythmia, other Pulmonary: Denies: asthma, COPD, FRANNY, other Gastrointestinal/Genitourinary: Denies: GERD, CRI, ESRD, other Neurologic/Psychiatric: Reports: other - parkinsons; Denies: dementia, CVA, depression/anxiety, TIA Endocrine: Denies: DM, hypothyroidism, steroids, other HEENT: Denies: cataract (L), cataract (R), glaucoma, [place] (L), [place] (R), other Hematology/Immune: Denies: anemia, DVT, bleeding disorder, other Musculoskeletal/Integumentary: Denies: OA, RA, DJD, DDD, edema, other PSxH Narrative: Denies Anesthesia Pre-op Phys. Exam Physician Exam Last Vital Signs Date Time Temp Pulse Resp B/P (MAP) Pulse Ox O2 Delivery O2 Flow Rate FiO2 02/24/18 12:00 98.2 53 19 129/61 (83) 100 98.2 02/24/18 08:21 Room Air Constitutional: NAD Cardiovascular: RRR Respiratory: CTA Airway Exam Mallampati Score: Class II MO: full ROM: full Teeth: missing Anesthesia Pre-op A/P Labs Hematology Test 02/24/18 05:10 White Blood Count 7.3 K/UL (4.8-10.8) Red Blood Count 3.17 M/UL (4.70-6.10) L Hemoglobin 8.7 G/DL (14.2-18.0) L Hematocrit 26.7 % (42.0-52.0) L Mean Corpuscular Volume 84 FL (80-99) Mean Corpuscular Hemoglobin 27.4 PG (27.0-31.0) Mean Corpuscular Hemoglobin Concent 32.5 G/DL (32.0-36.0) Red Cell Distribution Width 11.4 % (11.6-14.8) L Platelet Count 195 K/UL (150-450) Mean Platelet Volume 7.4 FL (6.5-10.1) Neutrophils (%) (Auto) 66.1 % (45.0-75.0) Lymphocytes (%) (Auto) 18.7 % (20.0-45.0) L Monocytes (%) (Auto) 9.6 % (1.0-10.0) Eosinophils (%) (Auto) 5.0 % (0.0-3.0) H Basophils (%) (Auto) 0.6 % (0.0-2.0) Chemistry Test 02/24/18 05:10 Sodium Level 137 MMOL/L (136-145) Potassium Level 3.8 MMOL/L (3.5-5.1) Chloride Level 104 MMOL/L (98-107) Carbon Dioxide Level 24 MMOL/L (21-32) Anion Gap 9 mmol/L (5-15) Blood Urea Nitrogen 10 mg/dL (7-18) Creatinine 1.3 MG/DL (0.55-1.30) Estimat Glomerular Filtration Rate mL/min (>60) Glucose Level 107 MG/DL (74-106) H Calcium Level 8.2 MG/DL (8.5-10.1) L Total Bilirubin 0.5 MG/DL (0.2-1.0) Aspartate Amino Transf (AST/SGOT) 31 U/L (15-37) Alanine Aminotransferase (ALT/SGPT) 39 U/L (12-78) Alkaline Phosphatase 182 U/L (46-116) H Total Protein 6.8 G/DL (6.4-8.2) Albumin 2.7 G/DL (3.4-5.0) L Globulin 4.1 g/dL Albumin/Globulin Ratio 0.7 (1.0-2.7) L Studies Pre-op Studies: EKG - sr Risk Assessment & Plan Assessment: ASA II Plan: GA Status Change Before Surgery: No Pre-Antibiotics Drug: Ancef 2g Given Within 1 Hr of Incision: Yes Time Given: 15:45 Danuta Decker MD Feb 24, 2018 15:32
[2018-02-24] MEDS ORDERED: Surgicel 4in x 8in TOPIC ONE (16:00)
[2018-02-24] MEDS ORDERED: NS Irrig 1000ml IRRIG ONE (16:00)
[2018-02-24] MEDS ORDERED: LR 1000ml 1,000 ML IVLG SCH (16:05)
--- NOTE | 2018-02-24 16:07 | Immediate Post-Op Evaluation ---
Immediate Post-Op Evalulation Immediate Post-Op Evalulation Procedure: Laparoscopic cholecystectomy Date of Evaluation: Feb 24, 2018 Time of Evaluation: 17:16 IV Fluids: 700 Blood Products: 0 Estimated Blood Loss: 0 Urinary Output: 0 Blood Pressure Systolic: 167 Blood Pressure Diastolic: 87 Pulse Rate: 99 Respiratory Rate: 16 O2 Sat by Pulse Oximetry: 99 Temperature (Fahrenheit): 98.4 Pain Score (1-10): 0 Nausea: No Vomiting: No Complications 0 Patient Status: awake, reacts, patent, none Hydration Status: adequate Drug: Ancef 2g Given Within 1 Hr of Incision: Yes Time Given: 15:45 Danuta Decker MD Feb 24, 2018 16:07
[2018-02-24] MEDS ORDERED: DiphenhydrAMINE 50mg/ml Inj IVP PRN (16:15)
[2018-02-24] MEDS ORDERED: fentaNYL 100 mcg/2 mL IV PRN (16:15)
[2018-02-24] MEDS ORDERED: Hydromorphone 0.5mg/0.5ml inj IVP PRN (16:15)
[2018-02-24] MEDS ORDERED: Labetalol 5mg/ml 20ml vial IV PRN (16:15)
[2018-02-24] MEDS ORDERED: Glycopyrrolate 0.2mg/ml 1ml Vial ONE (16:57)
--- NOTE | 2018-02-24 17:48 | Brief Operative Note ---
Immediate Post Operative Note Operative Note Pre-op Diagnosis: acute cholecystitis Procedure: lap oracio Post-op Diagnosis: same as pre-op Surgeon: jose Anesthesiologist: dorys Anesthesia: general, local Specimen: yes Complications: none Condition: stable Fluids: see records Estimated Blood Loss: minimal Drains: none Implant(s) used?: No Román Kelley Feb 24, 2018 17:48
[2018-02-24] MEDS ORDERED: Norco 5mg/325mg tab ORAL PRN (20:00)
[2018-02-24] MEDS ORDERED: Morphine Sulfate 4mg/ml Inj (IV USE ONLY) IVP PRN (20:00)
[2018-02-24] MEDS ORDERED: HYDROcodone/Acetamin 10/325 tab ORAL PRN (20:00)
[2018-02-24] MEDS ORDERED: Morphine Sulfate 2mg/ml Inj(IV/IM USE ONLY) IVP PRN (20:00)
--- NOTE | 2018-02-24 23:42 | General Progress Note ---
Assessment/Plan Assessment/Plan Assessment - abnormal LFT - thickened GB with inflammatory Changes and GB neck stone and positive HIDA - gallstones - OBS Recommendations - follow after lap oracio - follow labs Subjective Allergies: Coded Allergies: No Known Allergies (Verified Allergy, Mild, 08/21/10) Subjective Above noted calm no abdominal complaints seen earlier today pre op had subsequent lap oracio Objective Last 24 Hour Vital Signs Date Time Temp Pulse Resp B/P (MAP) Pulse Ox O2 Delivery O2 Flow Rate FiO2 02/24/18 21:00 Nasal Cannula 3.0 Nasal Cannula 3.0 02/24/18 20:00 98.2 80 19 136/71 (92) 98 98.2 02/24/18 19:00 98.2 81 16 142/72 (95) 98 98.2 02/24/18 18:35 98 77 16 136/81 98 Nasal Cannula 3 98.0 02/24/18 18:15 77 16 136/81 98 Nasal Cannula 3 02/24/18 18:00 82 16 145/77 99 Simple Mask 8 02/24/18 17:45 82 16 144/68 99 Simple Mask 8 02/24/18 17:30 88 16 177/87 99 Simple Mask 8 02/24/18 17:30 209.1 99 16 99 02/24/18 17:21 104 16 202/94 100 Ambu-Bag 15 02/24/18 17:16 107 16 214/115 100 Ambu-Bag 15 02/24/18 17:11 98.4 99 16 167/87 99 Simple Mask 8 98.4 02/24/18 12:00 98.2 53 19 129/61 (83) 100 98.2 02/24/18 08:21 Room Air 02/24/18 08:00 99.3 54 18 130/62 (84) 98 99.3 02/24/18 04:00 98.4 57 17 122/56 (78) 97 98.4 02/24/18 00:00 98.2 66 18 119/58 (78) 98 98.2 Intake and Output 02/23/18 02/24/18 19:00 07:00 Intake Total 1280 ml 650 ml Output Total 550 ml Balance 730 ml 650 ml Intake Oral 920 ml 150 ml IV Total 360 ml 500 ml Output Urine Total 550 ml # Voids 3 4 # Bowel Movements 1 Laboratory Tests 02/24/18 05:10: White Blood Count 7.3, Red Blood Count 3.17L, Hemoglobin 8.7L, Hematocrit 26.7L , Mean Corpuscular Volume 84, Mean Corpuscular Hemoglobin 27.4, Mean Corpuscular Hemoglobin Concent 32.5, Red Cell Distribution Width 11.4L, Platelet Count 195, Mean Platelet Volume 7.4, Neutrophils (%) (Auto) 66.1, Lymphocytes (%) (Auto) 18.7L, Monocytes (%) (Auto) 9.6, Eosinophils (%) (Auto) 5.0H, Basophils (%) (Auto) 0.6, Sodium Level 137, Potassium Level 3.8, Chloride Level 104, Carbon Dioxide Level 24, Anion Gap 9, Blood Urea Nitrogen 10, Creatinine 1.3, Estimat Glomerular Filtration Rate , Glucose Level 107H, Calcium Level 8.2L, Total Bilirubin 0.5, Aspartate Amino Transf (AST/SGOT) 31, Alanine Aminotransferase (ALT/SGPT) 39, Alkaline Phosphatase 182H, Total Protein 6.8, Albumin 2.7L, Globulin 4.1, Albumin/Globulin Ratio 0.7L Height (Feet): 5 Height (Inches): 9.00 Weight (Pounds): 185 Objective WDWN AA man NCAT supple CTA RRR Soft NT ND no edema OBS Kristian Hernandez MD Feb 24, 2018 23:42
--- NOTE | 2018-02-24 23:47 | Operative Note - Dictated ---
DATE OF OPERATION: 02/24/2018 PREOPERATIVE DIAGNOSIS: Acute cholecystitis. POSTOPERATIVE DIAGNOSIS: Acute cholecystitis. OPERATION PERFORMED: Laparoscopic cholecystectomy. ATTENDING SURGEON: Román Kelley M.D. MEDICAL TRANSCRIBER: None. ANESTHESIOLOGIST: Dr. Cosby. ANESTHESIA: General ELECTRICAL TESTS SUPERVISOR. ESTIMATED BLOOD LOSS: Minimal. IV FLUIDS: Please see anesthesia records. COMPLICATIONS: None. SPECIMENS: Gallbladder containing stones sent to pathology for review. DRAINS: None. WOUND CLASSIFICATION: Class III. COUNTS: Sponge and needle count correct x2. ANTIBIOTICS: The patient is on scheduled IV antibiotics. INDICATIONS FOR PROCEDURE: This is an 87-year-old male, who presented to the [facility] with abdominal pain for one day. He states that it began in the epigastric region, which was 5/10 discomfort with mild nausea, but no emesis. Initially on admission, he was noted to have a shift and monitored white count soon after. He has slowly got mildly improved, but with diet, did notice some abdominal pain. CT scan was performed and identified mild gallbladder wall thickening prompting an ultrasound, which identified gallstones, wall thickening, and pericholecystic fluid and an MRCP, which identified cholelithiasis, multiple stones in the gallbladder, and stone in the neck of the gallbladder and interval development of gallbladder wall thickening and pericholecystic inflammatory changes, which were more significant than prior and concerning for acute cholecystitis at which, a HIDA was recommended and performed and cystic duct obstruction was seen compatible with findings of acute cholecystitis. Given the above findings and the patient's condition, long discussion was held with the patient's family regarding clinical condition and indication and recommendation for cholecystectomy. After consent was obtained from the family for a procedure to be performed today, 02/24/2018. OPERATIVE NOTE: The patient was taken to the operative room and placed on the operating table in supine position with bilateral arms out. All bony prominences were well padded. SCDs were placed. Ruby catheter was not inserted given the patient voided prior to entering the operating room. Preoperative time-out was taken in identifying the patient, procedure, operative staff, and surgical staff. General anesthesia was induced. The patient was intubated. The abdomen was clipped, prepped, and draped in standard surgical fashion. An infraumbilical incision was made and carried down to the fascia, which was elevated and incised. Entry into the abdomen was identified using the open Kj technique without complication. A 12 mm Kj trocar was inserted and the abdomen was insufflated to 12 to 15 mmHg. Secondary trocars were then placed under direct visualization beginning with a 12 mm subxiphoid right epigastric port followed by two 5 mm right subcostal ports. No complications from secondary trocar placement was identified. Thickened and edematous omental adhesions to the gallbladder were taken down using blunt and sharp dissection until the dome of the gallbladder could be identified. Unfortunately, gallbladder is very distended and with much thickened wall, it could not be grasped with a grasper. The gallbladder required decompression, which was performed with a laparoscopic needle. Once the gallbladder was decompressed, the dome of the gallbladder was grasped and retracted over the liver. The infundibulum was identified and noted to be very thickened. At the neck of the gallbladder, the stone that was impacting was identified and fortunately a non-inflamed cystic duct could be easily visualized. Peritoneal attachments around the infundibulum were dissected down and the cystic duct was circumferentially dissected out followed by the cystic artery. Once a critical view was obtained, the cystic duct and artery were doubly clipped and divided. Following this, the gallbladder attachments to the liver bed were taken down using electrocautery. There was noted to be significant inflammation and thickened wall around the gallbladder. Once this was freed, the gallbladder was placed in an endoscopic retrieval bag and removed from the abdomen using the umbilical port site that required further opening for removal of the large gallbladder and stones. The abdomen was then inspected, irrigated, and cleaned. The liver bed was evaluated as well as the cystic duct and artery. No bleeding from the cystic artery was noted and the cystic duct was with clips and without leakage of any bile. Hemostasis from the liver bed was obtained with electrocautery. A Surgicel was left in the liver bed following the end of the procedure. Secondary trocars then removed under direct visualization. Once this was complete, the umbilical port fascia was closed using a #0 [id number] Vicryl suture. Following this, the remaining skin incisions were cleansed and closed using 4-0 Monocryl and subcuticular interrupted sutures. The patient tolerated the procedure well, was extubated, and taken to the postanesthetic care unit in stable condition after dressings were applied. Román Waldemar Kelley DR: ANDRES JOB#: [id number] CC: MARY
[2018-02-25] VITALS (7 sets, daily range): BP systolic 105–129; BP diastolic 57–68
[2018-02-25] MEDS: Piperacillin/Tazobactam 3.375 GM in D5W 110 ML IVPB SCH ×3 (01:14→16:51)
[2018-02-25 07:00] LABS: HEMATOCRIT 30.4 % (42.0-52.0); HEMOGLOBIN 9.7 G/DL (14.2-18.0); MEAN CORPUSCULAR VOLUME 85 FL (80-99); PLATELET COUNT 224 K/UL (150-450); RED CELL DISTRIBUTION WIDTH 11.5 % (11.6-14.8); WHITE BLOOD COUNT 9.7 K/UL (4.8-10.8)
[2018-02-25 07:11] LABS: ANION GAP 11 mmol/L (5-15); BLOOD UREA NITROGEN 8 mg/dL (7-18); CALCIUM 8.4 MG/DL (8.5-10.1); CARBON DIOXIDE 23 MMOL/L (21-32); CHLORIDE 106 MMOL/L (98-107); CREATININE 1.3 MG/DL (0.55-1.30); POTASSIUM 3.6 MMOL/L (3.5-5.1); SODIUM 140 MMOL/L (136-145)
--- NOTE | 2018-02-25 07:24 | 48 Hour Post Anesthesia Eval ---
Post Anesthesia Evaluation Procedure: Laparoscopic cholecystectomy Date of Evaluation: Feb 25, 2018 Time of Evaluation: 06:30 Blood Pressure Systolic: 107 0: 65 Pulse Rate: 79 Respiratory Rate: 17 Temperature (Fahrenheit): 99.5 O2 Sat by Pulse Oximetry: 98 Airway: patent Nausea: No Vomiting: No Pain Intensity: 0 Hydration Status: adequate Cardiopulmonary Status: at baseline Mental Status/LOC: patient returned to baseline Post-Anesthesia Complications: 0 Follow-up care needed: N/A - further care as per primary team Danuta Decker MD Feb 25, 2018 07:24
--- NOTE | 2018-02-25 08:16 | General Progress Note ---
Assessment/Plan Problem List: (1) Hypertension ICD Codes: I10 - Essential (primary) hypertension SNOMED: 05464203 (2) Encephalopathy acute ICD Codes: G93.40 - Encephalopathy, unspecified SNOMED: 1523292 (3) Transaminitis ICD Codes: R74.0 - Nonspecific elevation of levels of transaminase and lactic acid dehydrogenase [LDH] SNOMED: 113724518 (4) Intractable abdominal pain ICD Codes: R10.9 - Unspecified abdominal pain SNOMED: 11027876, 834708315 (5) Biliary colic ICD Codes: K80.50 - Calculus of bile duct without cholangitis or cholecystitis without obstruction SNOMED: 50718196 Status: stable, progressing Assessment/Plan cont abx tylenol for fever pain rx ivf mobilize Subjective ROS Limited/Unobtainable: No Constitutional: Reports: fever, malaise, weakness HEENT: Reports: no symptoms Cardiovascular: Reports: no symptoms Respiratory: Reports: no symptoms Gastrointestinal/Abdominal: Reports: no symptoms Genitourinary: Reports: no symptoms Neurologic/Psychiatric: Reports: no symptoms Endocrine: Reports: no symptoms Hematologic/Lymphatic: Reports: no symptoms Allergies: Coded Allergies: No Known Allergies (Verified Allergy, Mild, 08/21/10) All Systems: reviewed and negative except above Subjective fevers last night. nontoxic. s/p uncomplicated lap oracio Objective Last 24 Hour Vital Signs Date Time Temp Pulse Resp B/P (MAP) Pulse Ox O2 Delivery O2 Flow Rate FiO2 02/25/18 07:24 211.1 79 17 98 02/25/18 04:00 99.5 79 17 107/65 (79) 98 99.5 02/25/18 03:22 99.5 02/25/18 02:23 101.4 02/25/18 00:00 101.4 88 18 121/68 (85) 96 101.4 02/24/18 21:00 Nasal Cannula 3.0 Nasal Cannula 3.0 02/24/18 20:00 98.2 80 19 136/71 (92) 98 98.2 02/24/18 19:00 98.2 81 16 142/72 (95) 98 98.2 02/24/18 18:35 98 77 16 136/81 98 Nasal Cannula 3 98.0 02/24/18 18:15 77 16 136/81 98 Nasal Cannula 3 02/24/18 18:00 82 16 145/77 99 Simple Mask 8 02/24/18 17:45 82 16 144/68 99 Simple Mask 8 02/24/18 17:30 88 16 177/87 99 Simple Mask 8 02/24/18 17:30 209.1 99 16 99 02/24/18 17:21 104 16 202/94 100 Ambu-Bag 15 02/24/18 17:16 107 16 214/115 100 Ambu-Bag 15 02/24/18 17:11 98.4 99 16 167/87 99 Simple Mask 8 98.4 02/24/18 12:00 98.2 53 19 129/61 (83) 100 98.2 02/24/18 08:21 Room Air Intake and Output 02/24/18 02/25/18 19:00 07:00 Intake Total 1110 ml 300 ml Output Total 100 ml 400 ml Balance 1010 ml -100 ml IV Total 1110 ml 300 ml Output Urine Total 100 ml 400 ml # Voids 2 Laboratory Tests 02/25/18 05:20: White Blood Count 9.7, Red Blood Count 3.60L, Hemoglobin 9.7L, Hematocrit 30.4L , Mean Corpuscular Volume 85, Mean Corpuscular Hemoglobin 26.9L, Mean Corpuscular Hemoglobin Concent 31.9L, Red Cell Distribution Width 11.5L, Platelet Count 224, Mean Platelet Volume 7.6, Neutrophils (%) (Auto) , Lymphocytes (%) (Auto) , Monocytes (%) (Auto) , Eosinophils (%) (Auto) , Basophils (%) (Auto) , Neutrophils % (Manual) [Pending], Lymphocytes % (Manual) [Pending], Platelet Estimate [Pending], Platelet Morphology [Pending], Sodium Level 140, Potassium Level 3.6, Chloride Level 106, Carbon Dioxide Level 23, Anion Gap 11, Blood Urea Nitrogen 8, Creatinine 1.3, Estimat Glomerular Filtration Rate , Glucose Level 111H, Calcium Level 8.4L Height (Feet): 5 Height (Inches): 9.00 Weight (Pounds): 185 Objective General Appearance: WD/WN, alert Neck: supple Cardiovascular: regular rhythm Respiratory/Chest: chest wall non-tender, lungs clear, normal breath sounds, no respiratory distress Abdomen: normal bowel sounds, non tender, soft, no organomegaly Edema: no edema noted Arm (L), no edema noted Arm (R), no edema noted Leg (L), no edema noted Leg (R), no edema noted Pedal (L), no edema noted Pedal (R), no edema noted Generalized Xander Fofana MD Feb 25, 2018 08:16
[2018-02-25] MEDS: Pantoprazole Inj IV SCH (08:54)
[2018-02-25] MEDS: Docusate 100mg cap ORAL SCH ×2 (08:54→17:28)
[2018-02-25] MEDS: Heparin 5000 units/ml inj SUBQ SCH ×2 (08:55→21:00)
--- NOTE | 2018-02-25 14:33 | General Progress Note ---
Progress Note Progress Note Surgery: doing great post op. no n/v/f/c/. comfortable. pain minimal exam benign afebrile, HD stable, labs okay -diet as tolerated -okay to remove dressings and keep wounds open to air -activity as tolerated thank you Román Kelley Feb 25, 2018 14:33
--- NOTE | 2018-02-25 16:01 | Infectious Diseases Prog Note ---
"Assessment/Plan Assessment/Plan A 1. colitis | diverticulitis 2. cholecystitis s/p laparoscopic cholecystectomy 3. hypertension 4. Parkinson's disease P 1. continue Zosyn Subjective ROS Limited/Unobtainable: Yes Constitutional: Reports: fever, other - Phxq=763.4 Respiratory: Reports: no symptoms Gastrointestinal/Abdominal: Reports: other - had laparoscopic cholecystectomy today Genitourinary: Reports: no symptoms Musculoskeletal: Reports: no symptoms Allergies: Coded Allergies: No Known Allergies (Verified Allergy, Mild, 08/21/10) Objective Vital Signs Last 24 Hour Vital Signs Date Time Temp Pulse Resp B/P (MAP) Pulse Ox O2 Delivery O2 Flow Rate FiO2 02/25/18 12:00 97.9 78 18 105/57 (73) 97.9 02/25/18 09:43 Nasal Cannula 3.0 Nasal Cannula 3.0 02/25/18 08:00 97.4 79 19 108/59 (75) 97 97.4 02/25/18 07:24 211.1 79 17 98 02/25/18 04:00 99.5 79 17 107/65 (79) 98 99.5 02/25/18 03:22 99.5 02/25/18 02:23 101.4 02/25/18 00:00 101.4 88 18 121/68 (85) 96 101.4 02/24/18 21:00 Nasal Cannula 3.0 Nasal Cannula 3.0 02/24/18 20:00 98.2 80 19 136/71 (92) 98 98.2 02/24/18 19:00 98.2 81 16 142/72 (95) 98 98.2 02/24/18 18:35 98 77 16 136/81 98 Nasal Cannula 3 98.0 02/24/18 18:15 77 16 136/81 98 Nasal Cannula 3 02/24/18 18:00 82 16 145/77 99 Simple Mask 8 02/24/18 17:45 82 16 144/68 99 Simple Mask 8 02/24/18 17:30 88 16 177/87 99 Simple Mask 8 02/24/18 17:30 209.1 99 16 99 02/24/18 17:21 104 16 202/94 100 Ambu-Bag 15 02/24/18 17:16 107 16 214/115 100 Ambu-Bag 15 02/24/18 17:11 98.4 99 16 167/87 99 Simple Mask 8 98.4 Height (Feet): 5 Height (Inches): 9.00 Weight (Pounds): 185 General Appearance: no acute distress Respiratory/Chest: lungs clear Cardiovascular: normal rate Abdomen: soft, non tender Extremities: no edema Neurologic/Psychiatric: alert, responsive Laboratory Tests Test 02/25/18 05:20 White Blood Count 9.7 K/UL (4.8-10.8) Red Blood Count 3.60 M/UL (4.70-6.10) L Hemoglobin 9.7 G/DL (14.2-18.0) L Hematocrit 30.4 % (42.0-52.0) L Mean Corpuscular Volume 85 FL (80-99) Mean Corpuscular Hemoglobin 26.9 PG (27.0-31.0) L Mean Corpuscular Hemoglobin Concent 31.9 G/DL (32.0-36.0) L Red Cell Distribution Width 11.5 % (11.6-14.8) L Platelet Count 224 K/UL (150-450) Mean Platelet Volume 7.6 FL (6.5-10.1) Neutrophils (%) (Auto) % (45.0-75.0) Lymphocytes (%) (Auto) % (20.0-45.0) Monocytes (%) (Auto) % (1.0-10.0) Eosinophils (%) (Auto) % (0.0-3.0) Basophils (%) (Auto) % (0.0-2.0) Differential Total Cells Counted 100 Neutrophils % (Manual) 90 % (45-75) H Lymphocytes % (Manual) 4 % (20-45) L Monocytes % (Manual) 6 % (1-10) Eosinophils % (Manual) 0 % (0-3) Basophils % (Manual) 0 % (0-2) Band Neutrophils 0 % (0-8) Platelet Estimate Adequate Platelet Morphology Normal Sodium Level 140 MMOL/L (136-145) Potassium Level 3.6 MMOL/L (3.5-5.1) Chloride Level 106 MMOL/L (98-107) Carbon Dioxide Level 23 MMOL/L (21-32) Anion Gap 11 mmol/L (5-15) Blood Urea Nitrogen 8 mg/dL (7-18) Creatinine 1.3 MG/DL (0.55-1.30) Estimat Glomerular Filtration Rate mL/min (>60) Glucose Level 111 MG/DL (74-106) H Calcium Level 8.4 MG/DL (8.5-10.1) L Current Medications Medications (Trade) Dose Ordered Sig/Juvenal Route PRN Reason Start Time Stop Time Status Last Admin Dose Admin Acetaminophen (Tylenol) 650 mg Q6H PRN ORAL Mild Pain (Pain Scale 1-3) 02/24/18 20:00 03/26/18 19:59 02/25/18 02:23 Acetaminophen/ Hydrocodone Bitart ([place] 10/325) 1 tab Q4H PRN ORAL Severe Pain (Pain Scale 7-10) 02/24/18 20:00 03/03/18 19:59 Acetaminophen/ Hydrocodone Bitart ([place] 5/325) 1 tab Q4H PRN ORAL Moderate Pain (Pain Scale 4-6) 02/24/18 20:00 03/03/18 19:59 Al Hydroxide/Mg Hydroxide (Mylanta II) 30 ml Q6H PRN ORAL dyspepsia 02/19/18 19:15 03/21/18 19:14 Al Hydroxide/Mg Hydroxide (Mylanta) 15 ml Q6H PRN ORAL DYSPEPSIA 02/24/18 20:00 03/26/18 19:59 Dextrose (Dextrose 50%) 25 ml STAT PRN IV Hypoglycemia 02/19/18 19:15 03/21/18 19:14 Dextrose (Dextrose 50%) 50 ml STAT PRN IV Hypoglycemia 02/19/18 19:15 03/21/18 19:14 Diphenhydramine HCl (Benadryl) 25 mg Q8H PRN ORAL Itching/Pruritis 02/24/18 20:00 03/26/18 19:59 Docusate Sodium (Colace) 100 mg TWICE A DAY ORAL 02/25/18 09:00 03/27/18 08:59 02/25/18 08:54 Heparin Sodium (Porcine) (Heparin 5000 units/ml) 5,000 units EVERY 12 HOURS SUBQ 02/19/18 21:00 03/21/18 20:59 02/25/18 08:55 Magnesium Hydroxide (Mom) 30 ml HSPRN PRN ORAL Constipation 02/19/18 21:00 03/21/18 20:59 Morphine Sulfate (Morphine Sulfate) 2 mg Q4H PRN IVP pain scale 4-6 02/24/18 20:00 03/03/18 19:59 Morphine Sulfate (Morphine Sulfate) 4 mg Q4H PRN IVP pain score 7-10 02/24/18 20:00 03/03/18 19:59 Ondansetron HCl (Zofran) 4 mg Q6H PRN IVP Nausea & Vomiting 02/24/18 20:00 03/26/18 19:59 Pantoprazole (Protonix) 40 mg DAILY IV 02/20/18 09:00 03/22/18 08:59 02/25/18 08:54 Piperacillin Sod/ Tazobactam Sod 3.375 gm/Dextrose 110 ml @ 27.5 mls/hr Q8H IVPB 02/20/18 09:00 02/27/18 08:59 02/25/18 08:54 Temazepam (Restoril) 15 mg HSPRN PRN ORAL Insomnia 02/19/18 21:00 02/26/18 20:59 Garret Hicks MD Feb 25, 2018 16:01"
--- NOTE | 2018-02-25 23:08 | General Progress Note ---
Assessment/Plan Assessment/Plan Assessment - abnormal LFT - cholecystitis - gallstones - s/p lap oracio - OBS Recommendations - follow after lap oracio - follow labs - OOB - diet per surgery Subjective Allergies: Coded Allergies: No Known Allergies (Verified Allergy, Mild, 08/21/10) Subjective Above noted calm POD #1 s/p oracio Objective Last 24 Hour Vital Signs Date Time Temp Pulse Resp B/P (MAP) Pulse Ox O2 Delivery O2 Flow Rate FiO2 02/25/18 20:00 99.6 75 18 129/57 (81) 97 99.6 02/25/18 16:00 98.9 79 20 106/59 (75) 96 98.9 02/25/18 12:00 97.9 78 18 105/57 (73) 97 97.9 02/25/18 09:43 Nasal Cannula 3.0 Nasal Cannula 3.0 02/25/18 08:00 97.4 79 19 108/59 (75) 97 97.4 02/25/18 07:24 211.1 79 17 98 02/25/18 04:00 99.5 79 17 107/65 (79) 98 99.5 02/25/18 03:22 99.5 02/25/18 02:23 101.4 02/25/18 00:00 101.4 88 18 121/68 (85) 96 101.4 Intake and Output 02/24/18 02/25/18 19:00 07:00 Intake Total 1110 ml 300 ml Output Total 100 ml 400 ml Balance 1010 ml -100 ml IV Total 1110 ml 300 ml Output Urine Total 100 ml 400 ml # Voids 2 Laboratory Tests 02/25/18 05:20: White Blood Count 9.7, Red Blood Count 3.60L, Hemoglobin 9.7L, Hematocrit 30.4L , Mean Corpuscular Volume 85, Mean Corpuscular Hemoglobin 26.9L, Mean Corpuscular Hemoglobin Concent 31.9L, Red Cell Distribution Width 11.5L, Platelet Count 224, Mean Platelet Volume 7.6, Neutrophils (%) (Auto) , Lymphocytes (%) (Auto) , Monocytes (%) (Auto) , Eosinophils (%) (Auto) , Basophils (%) (Auto) , Differential Total Cells Counted 100, Neutrophils % ( Manual) 90H, Lymphocytes % (Manual) 4L, Monocytes % (Manual) 6, Eosinophils % ( Manual) 0, Basophils % (Manual) 0, Band Neutrophils 0, Platelet Estimate Adequate, Platelet Morphology Normal, Sodium Level 140, Potassium Level 3.6, Chloride Level 106, Carbon Dioxide Level 23, Anion Gap 11, Blood Urea Nitrogen 8 , Creatinine 1.3, Estimat Glomerular Filtration Rate , Glucose Level 111H, Calcium Level 8.4L Height (Feet): 5 Height (Inches): 9.00 Weight (Pounds): 185 Objective WDWN AA man NCAT supple CTA RRR Soft NT ND, wounds OK no edema OBS Kristian Hernandez MD Feb 25, 2018 23:08
[2018-02-26] VITALS: BP 127/61
[2018-02-26] MEDS: Piperacillin/Tazobactam 3.375 GM in D5W 110 ML IVPB SCH ×3 (01:25→17:47)
[2018-02-26 04:18] VITALS: BP 126/59
--- NOTE | 2018-02-26 07:54 | General Progress Note ---
Assessment/Plan Problem List: (1) Hypertension ICD Codes: I10 - Essential (primary) hypertension SNOMED: 92491033 (2) Encephalopathy acute ICD Codes: G93.40 - Encephalopathy, unspecified SNOMED: 1060474 (3) Transaminitis ICD Codes: R74.0 - Nonspecific elevation of levels of transaminase and lactic acid dehydrogenase [LDH] SNOMED: 058305033 (4) Intractable abdominal pain ICD Codes: R10.9 - Unspecified abdominal pain SNOMED: 21236251, 198016770 (5) Biliary colic ICD Codes: K80.50 - Calculus of bile duct without cholangitis or cholecystitis without obstruction SNOMED: 74468487 Status: stable, progressing Assessment/Plan cont abx tylenol for fever pain rx ivf/po mobilize Subjective ROS Limited/Unobtainable: No Constitutional: Reports: fever, malaise, weakness HEENT: Reports: no symptoms Cardiovascular: Reports: no symptoms Respiratory: Reports: no symptoms Gastrointestinal/Abdominal: Reports: no symptoms Genitourinary: Reports: no symptoms Neurologic/Psychiatric: Reports: no symptoms Endocrine: Reports: no symptoms Hematologic/Lymphatic: Reports: no symptoms Allergies: Coded Allergies: No Known Allergies (Verified Allergy, Mild, 08/21/10) All Systems: reviewed and negative except above Subjective low grade temp. tolerating clears. denies pain. on iv abx Objective Last 24 Hour Vital Signs Date Time Temp Pulse Resp B/P (MAP) Pulse Ox O2 Delivery O2 Flow Rate FiO2 02/26/18 04:18 99.5 70 17 126/59 (81) 97 99.5 02/26/18 00:00 100.9 74 16 127/61 (83) 95 100.9 02/25/18 21:00 Room Air Room Air 02/25/18 21:00 99.6 75 18 129/57 (81) 97 99.6 02/25/18 20:00 99.6 75 18 129/57 (81) 97 99.6 02/25/18 16:00 98.9 79 20 106/59 (75) 96 98.9 02/25/18 12:00 97.9 78 18 105/57 (73) 97 97.9 02/25/18 09:43 Nasal Cannula 3.0 Nasal Cannula 3.0 02/25/18 08:00 97.4 79 19 108/59 (75) 97 97.4 Intake and Output 02/25/18 02/26/18 19:00 07:00 Intake Total 910 ml Output Total 400 ml Balance 510 ml Intake Oral 800 ml IV Total 110 ml Output Urine Total 400 ml # Voids 2 1 Height (Feet): 5 Height (Inches): 9.00 Weight (Pounds): 185 Objective General Appearance: WD/WN, alert Neck: supple Cardiovascular: regular rhythm Respiratory/Chest: chest wall non-tender, lungs clear, normal breath sounds, no respiratory distress Abdomen: normal bowel sounds, non tender, soft, no organomegaly Edema: no edema noted Arm (L), no edema noted Arm (R), no edema noted Leg (L), no edema noted Leg (R), no edema noted Pedal (L), no edema noted Pedal (R), no edema noted Generalized Xander Fofana MD Feb 26, 2018 07:54
[2018-02-26 08:00] VITALS: BP 121/63
[2018-02-26] MEDS: Docusate 100mg cap ORAL SCH ×2 (09:51→17:47)
[2018-02-26] MEDS: Pantoprazole Inj IV SCH (09:51)
[2018-02-26] MEDS: Heparin 5000 units/ml inj SUBQ SCH ×2 (09:52→20:40)
[2018-02-26 12:00] VITALS: BP 125/65
--- NOTE | 2018-02-26 13:25 | General Surgery Progress Note ---
General Surgery-Progress Note Subjective Procedure Performed lap oracio Symptoms: improved, tolerating diet, voiding well, passing flatus, BM Additional Comments doing much better. low grade fevers. otherwise stable. Objective Last 24 Hour Vital Signs Date Time Temp Pulse Resp B/P (MAP) Pulse Ox O2 Delivery O2 Flow Rate FiO2 02/26/18 08:25 Room Air Room Air 02/26/18 04:18 99.5 70 17 126/59 (81) 97 99.5 02/26/18 00:00 100.9 74 16 127/61 (83) 95 100.9 02/25/18 21:00 Room Air Room Air 02/25/18 21:00 99.6 75 18 129/57 (81) 97 99.6 02/25/18 20:00 99.6 75 18 129/57 (81) 97 99.6 02/25/18 16:00 98.9 79 20 106/59 (75) 96 98.9 I&O Intake and Output 02/25/18 02/26/18 19:00 07:00 Intake Total 910 ml Output Total 400 ml Balance 510 ml Intake Oral 800 ml IV Total 110 ml Output Urine Total 400 ml # Voids 2 1 Wound: clean, dry, intact Drains: none Cardiovascular: RSR Respiratory: clear Abdomen: soft, non-tender, present bowel sounds Extremities: no cyanosis Plan Problems: (1) Intractable abdominal pain Assessment & Plan: 87M with abdominal pain. afebrile, HD stable, labs reviewed. no leukocytosis but shift. alk phos mildly elevated. CT with GB wall thickening, normal CBD, possible descending colitis. labs improved. US with possible cholecystitis. MRI with worsening edema. HIDA positive s/p lap oracio. recovering low grade fevers. cont Abx diet as tolerated activity as tolerated okay to shower thank you for this consultation. will follow with recs. Román Kelley Feb 26, 2018 13:25
[2018-02-26 16:00] VITALS: BP 125/54
--- NOTE | 2018-02-26 17:31 | General Progress Note ---
Assessment/Plan Assessment/Plan Assessment - abnormal LFT - cholecystitis - gallstones - s/p lap oracio - OBS Recommendations - follow after lap oracio - follow labs - OOB - diet per surgery Subjective Allergies: Coded Allergies: No Known Allergies (Verified Allergy, Mild, 08/21/10) Subjective Above noted calm POD #2 s/p oracio Objective Last 24 Hour Vital Signs Date Time Temp Pulse Resp B/P (MAP) Pulse Ox O2 Delivery O2 Flow Rate FiO2 02/26/18 12:00 98.1 74 17 125/65 (85) 97 98.1 02/26/18 08:25 Room Air Room Air 02/26/18 08:00 98.7 74 121/63 (82) 98.7 02/26/18 04:18 99.5 70 17 126/59 (81) 97 99.5 02/26/18 00:00 100.9 74 16 127/61 (83) 95 100.9 02/25/18 21:00 Room Air Room Air 02/25/18 21:00 99.6 75 18 129/57 (81) 97 99.6 02/25/18 20:00 99.6 75 18 129/57 (81) 97 99.6 Intake and Output 02/25/18 02/26/18 19:00 07:00 Intake Total 910 ml Output Total 400 ml Balance 510 ml Intake Oral 800 ml IV Total 110 ml Output Urine Total 400 ml # Voids 2 1 Height (Feet): 5 Height (Inches): 9.00 Weight (Pounds): 185 Objective WDWN AA man NCAT supple CTA RRR Soft NT ND, wounds OK no edema OBS Kristian Hernandez MD Feb 26, 2018 17:31
[2018-02-26 20:00] VITALS: BP 121/64
[2018-02-27] VITALS: BP 132/67
[2018-02-27] MEDS: Piperacillin/Tazobactam 3.375 GM in D5W 110 ML IVPB SCH ×3 (00:36→17:29)
[2018-02-27 04:00] VITALS: BP 126/61
[2018-02-27 08:18] VITALS: BP 134/60
[2018-02-27 08:41] LABS: BASOPHILS % (AUTO) 0.7 % (0.0-2.0); EOSINOPHILS % (AUTO) 1.8 % (0.0-3.0); HEMATOCRIT 31.4 % (42.0-52.0); HEMOGLOBIN 9.9 G/DL (14.2-18.0); LYMPHOCYTES % (AUTO) 10.3 % (20.0-45.0); MEAN CORPUSCULAR VOLUME 85 FL (80-99); MONOCYTES % (AUTO) 5.4 % (1.0-10.0); NEUTROPHILS % (AUTO) 81.8 % (45.0-75.0); PLATELET COUNT 249 K/UL (150-450); RED BLOOD COUNT 3.68 M/UL (4.70-6.10); RED CELL DISTRIBUTION WIDTH 11.4 % (11.6-14.8); WHITE BLOOD COUNT 11.3 K/UL (4.8-10.8)
[2018-02-27 09:10] LABS: ALANINE AMINOTRANSFERASE 50 U/L (12-78); ALBUMIN 2.9 G/DL (3.4-5.0); ALBUMIN/GLOBULIN RATIO 0.7 (1.0-2.7); ALKALINE PHOSPHATASE 152 U/L (46-116); ANION GAP 14 mmol/L (5-15); ASPARTATE AMINO TRANSFERASE 36 U/L (15-37); BILIRUBIN,TOTAL 0.7 MG/DL (0.2-1.0); BLOOD UREA NITROGEN 11 mg/dL (7-18); CALCIUM 8.9 MG/DL (8.5-10.1); CARBON DIOXIDE 23 MMOL/L (21-32); CHLORIDE 103 MMOL/L (98-107); CREATININE 1.3 MG/DL (0.55-1.30); POTASSIUM 4.1 MMOL/L (3.5-5.1); SODIUM 140 MMOL/L (136-145)
[2018-02-27] MEDS: Docusate 100mg cap ORAL SCH ×2 (09:40→17:30)
[2018-02-27] MEDS: Pantoprazole Inj IV SCH (09:40)
[2018-02-27] MEDS: Heparin 5000 units/ml inj SUBQ SCH ×2 (09:41→20:13)
--- NOTE | 2018-02-27 11:00 | General Progress Note ---
Assessment/Plan Problem List: (1) Hypertension ICD Codes: I10 - Essential (primary) hypertension SNOMED: 99842200 (2) Encephalopathy acute ICD Codes: G93.40 - Encephalopathy, unspecified SNOMED: 8362214 (3) Transaminitis ICD Codes: R74.0 - Nonspecific elevation of levels of transaminase and lactic acid dehydrogenase [LDH] SNOMED: 523523922 (4) Intractable abdominal pain ICD Codes: R10.9 - Unspecified abdominal pain SNOMED: 90174043, 461591977 (5) Biliary colic ICD Codes: K80.50 - Calculus of bile duct without cholangitis or cholecystitis without obstruction SNOMED: 66565261 Status: stable, progressing Assessment/Plan cont abx tylenol for fever pain rx ivf/po mobilize Subjective ROS Limited/Unobtainable: No Constitutional: Reports: malaise, weakness HEENT: Reports: no symptoms Cardiovascular: Reports: no symptoms Respiratory: Reports: no symptoms Gastrointestinal/Abdominal: Reports: no symptoms Genitourinary: Reports: no symptoms Neurologic/Psychiatric: Reports: no symptoms Endocrine: Reports: no symptoms Hematologic/Lymphatic: Reports: no symptoms Allergies: Coded Allergies: No Known Allergies (Verified Allergy, Mild, 08/21/10) All Systems: reviewed and negative except above Subjective no complaints. tolerating pos. denies pain. on iv abx Objective Last 24 Hour Vital Signs Date Time Temp Pulse Resp B/P (MAP) Pulse Ox O2 Delivery O2 Flow Rate FiO2 02/27/18 09:40 98.5 02/27/18 08:18 98.5 72 18 134/60 (84) 96 98.5 02/27/18 04:00 99.5 68 16 126/61 (82) 96 99.5 02/27/18 00:00 98.9 72 20 132/67 (88) 97 98.9 02/26/18 22:20 100.3 02/26/18 22:20 100.3 100.3 02/26/18 21:20 101.2 02/26/18 21:00 Room Air Room Air 02/26/18 20:00 101.2 79 17 121/64 (83) 95 101.2 02/26/18 16:00 98.6 69 125/54 (77) 98.6 02/26/18 12:00 98.1 74 17 125/65 (85) 97 98.1 Intake and Output 02/26/18 02/27/18 19:00 07:00 Intake Total 227.5 ml 432.5 ml Output Total 400 ml Balance -172.5 ml 432.5 ml Intake Oral 200 ml 240 ml IV Total 27.5 ml 192.5 ml Output Urine Total 400 ml # Voids 3 1 Laboratory Tests 02/27/18 08:02: White Blood Count 11.3H, Red Blood Count 3.68L, Hemoglobin 9.9L, Hematocrit 31.4L, Mean Corpuscular Volume 85, Mean Corpuscular Hemoglobin 26.9L, Mean Corpuscular Hemoglobin Concent 31.5L, Red Cell Distribution Width 11.4L, Platelet Count 249, Mean Platelet Volume 7.7, Neutrophils (%) (Auto) 81.8H, Lymphocytes (%) (Auto) 10.3L, Monocytes (%) (Auto) 5.4, Eosinophils (%) (Auto) 1.8, Basophils (%) (Auto) 0.7, Sodium Level 140, Potassium Level 4.1, Chloride Level 103, Carbon Dioxide Level 23, Anion Gap 14, Blood Urea Nitrogen 11, Creatinine 1.3, Estimat Glomerular Filtration Rate , Glucose Level 104, Calcium Level 8.9, Total Bilirubin 0.7, Aspartate Amino Transf (AST/SGOT) 36, Alanine Aminotransferase (ALT/SGPT) 50, Alkaline Phosphatase 152H, Total Protein 6.8, Albumin 2.9L, Globulin 3.9, Albumin/Globulin Ratio 0.7L Height (Feet): 5 Height (Inches): 9.00 Weight (Pounds): 185 Objective General Appearance: WD/WN, alert Neck: supple Cardiovascular: regular rhythm Respiratory/Chest: chest wall non-tender, lungs clear, normal breath sounds, no respiratory distress Abdomen: normal bowel sounds, non tender, soft, no organomegaly Edema: no edema noted Arm (L), no edema noted Arm (R), no edema noted Leg (L), no edema noted Leg (R), no edema noted Pedal (L), no edema noted Pedal (R), no edema noted Generalized Xander Fofana MD Feb 27, 2018 11:00
[2018-02-27 12:00] VITALS: BP 131/58
--- NOTE | 2018-02-27 12:24 | Infectious Diseases Prog Note ---
"Assessment/Plan Assessment/Plan A 1. colitis | diverticulitis 2. cholecystitis s/p laparoscopic cholecystectomy 3. hypertension 4. Parkinson's disease P 1. continue Zosyn Subjective ROS Limited/Unobtainable: No Constitutional: Reports: no symptoms Respiratory: Reports: no symptoms Cardiovascular: Reports: no symptoms Gastrointestinal/Abdominal: Reports: no symptoms Genitourinary: Reports: no symptoms Allergies: Coded Allergies: No Known Allergies (Verified Allergy, Mild, 08/21/10) Objective Vital Signs Last 24 Hour Vital Signs Date Time Temp Pulse Resp B/P (MAP) Pulse Ox O2 Delivery O2 Flow Rate FiO2 02/27/18 10:39 98.5 02/27/18 09:40 98.5 02/27/18 09:00 Room Air Room Air 02/27/18 08:18 98.5 72 18 134/60 (84) 96 98.5 02/27/18 04:00 99.5 68 16 126/61 (82) 96 99.5 02/27/18 00:00 98.9 72 20 132/67 (88) 97 98.9 02/26/18 22:20 100.3 100.3 02/26/18 21:20 101.2 02/26/18 21:00 Room Air Room Air 02/26/18 20:00 101.2 79 17 121/64 (83) 95 101.2 02/26/18 16:00 98.6 69 125/54 (77) 98.6 Height (Feet): 5 Height (Inches): 9.00 Weight (Pounds): 185 General Appearance: no acute distress HEENT: mucous membranes moist Respiratory/Chest: lungs clear Cardiovascular: normal rate Abdomen: soft, non tender Extremities: no edema Neurologic/Psychiatric: alert, responsive Laboratory Tests Test 02/27/18 08:02 White Blood Count 11.3 K/UL (4.8-10.8) H Red Blood Count 3.68 M/UL (4.70-6.10) L Hemoglobin 9.9 G/DL (14.2-18.0) L Hematocrit 31.4 % (42.0-52.0) L Mean Corpuscular Volume 85 FL (80-99) Mean Corpuscular Hemoglobin 26.9 PG (27.0-31.0) L Mean Corpuscular Hemoglobin Concent 31.5 G/DL (32.0-36.0) L Red Cell Distribution Width 11.4 % (11.6-14.8) L Platelet Count 249 K/UL (150-450) Mean Platelet Volume 7.7 FL (6.5-10.1) Neutrophils (%) (Auto) 81.8 % (45.0-75.0) H Lymphocytes (%) (Auto) 10.3 % (20.0-45.0) L Monocytes (%) (Auto) 5.4 % (1.0-10.0) Eosinophils (%) (Auto) 1.8 % (0.0-3.0) Basophils (%) (Auto) 0.7 % (0.0-2.0) Sodium Level 140 MMOL/L (136-145) Potassium Level 4.1 MMOL/L (3.5-5.1) Chloride Level 103 MMOL/L (98-107) Carbon Dioxide Level 23 MMOL/L (21-32) Anion Gap 14 mmol/L (5-15) Blood Urea Nitrogen 11 mg/dL (7-18) Creatinine 1.3 MG/DL (0.55-1.30) Estimat Glomerular Filtration Rate mL/min (>60) Glucose Level 104 MG/DL (74-106) Calcium Level 8.9 MG/DL (8.5-10.1) Total Bilirubin 0.7 MG/DL (0.2-1.0) Aspartate Amino Transf (AST/SGOT) 36 U/L (15-37) Alanine Aminotransferase (ALT/SGPT) 50 U/L (12-78) Alkaline Phosphatase 152 U/L (46-116) H Total Protein 6.8 G/DL (6.4-8.2) Albumin 2.9 G/DL (3.4-5.0) L Globulin 3.9 g/dL Albumin/Globulin Ratio 0.7 (1.0-2.7) L Current Medications Medications (Trade) Dose Ordered Sig/Juvenal Route PRN Reason Start Time Stop Time Status Last Admin Dose Admin Acetaminophen (Tylenol) 650 mg Q6H PRN ORAL Mild Pain (Pain Scale 1-3) 02/24/18 20:00 03/26/18 19:59 02/27/18 09:40 Acetaminophen/ Hydrocodone Bitart ([place] 10325) 1 tab Q4H PRN ORAL Severe Pain (Pain Scale 7-10) 02/24/18 20:00 03/03/18 19:59 Acetaminophen/ Hydrocodone Bitart ([place] 5/325) 1 tab Q4H PRN ORAL Moderate Pain (Pain Scale 4-6) 02/24/18 20:00 03/03/18 19:59 02/26/18 10:31 Al Hydroxide/Mg Hydroxide (Mylanta II) 30 ml Q6H PRN ORAL dyspepsia 02/19/18 19:15 03/21/18 19:14 Al Hydroxide/Mg Hydroxide (Mylanta) 15 ml Q6H PRN ORAL DYSPEPSIA 02/24/18 20:00 03/26/18 19:59 Dextrose (Dextrose 50%) 25 ml STAT PRN IV Hypoglycemia 02/19/18 19:15 03/21/18 19:14 Dextrose (Dextrose 50%) 50 ml STAT PRN IV Hypoglycemia 02/19/18 19:15 03/21/18 19:14 Diphenhydramine HCl (Benadryl) 25 mg Q8H PRN ORAL Itching/Pruritis 02/24/18 20:00 03/26/18 19:59 Docusate Sodium (Colace) 100 mg TWICE A DAY ORAL 02/25/18 09:00 03/27/18 08:59 02/27/18 09:40 Heparin Sodium (Porcine) (Heparin 5000 units/ml) 5,000 units EVERY 12 HOURS SUBQ 02/19/18 21:00 03/21/18 20:59 02/27/18 09:41 Magnesium Hydroxide (Mom) 30 ml HSPRN PRN ORAL Constipation 02/19/18 21:00 03/21/18 20:59 Morphine Sulfate (Morphine Sulfate) 2 mg Q4H PRN IVP pain scale 4-6 02/24/18 20:00 03/03/18 19:59 Morphine Sulfate (Morphine Sulfate) 4 mg Q4H PRN IVP pain score 7-10 02/24/18 20:00 03/03/18 19:59 Ondansetron HCl (Zofran) 4 mg Q6H PRN IVP Nausea & Vomiting 02/24/18 20:00 03/26/18 19:59 Pantoprazole (Protonix) 40 mg DAILY IV 02/20/18 09:00 03/22/18 08:59 02/27/18 09:40 Piperacillin Sod/ Tazobactam Sod 3.375 gm/Dextrose 110 ml @ 27.5 mls/hr Q8H IVPB 02/20/18 09:00 03/03/18 08:59 02/27/18 09:40 Garret Hicks MD Feb 27, 2018 12:24"
--- NOTE | 2018-02-27 12:55 | General Surgery Progress Note ---
General Surgery-Progress Note Subjective Procedure Performed lap oracio Symptoms: improved, tolerating diet, voiding well, passing flatus, BM Additional Comments much improved. looks and feels great today Objective Last 24 Hour Vital Signs Date Time Temp Pulse Resp B/P (MAP) Pulse Ox O2 Delivery O2 Flow Rate FiO2 02/27/18 10:39 98.5 02/27/18 09:40 98.5 02/27/18 09:00 Room Air Room Air 02/27/18 08:18 98.5 72 18 134/60 (84) 96 98.5 02/27/18 04:00 99.5 68 16 126/61 (82) 96 99.5 02/27/18 00:00 98.9 72 20 132/67 (88) 97 98.9 02/26/18 22:20 100.3 100.3 02/26/18 21:20 101.2 02/26/18 21:00 Room Air Room Air 02/26/18 20:00 101.2 79 17 121/64 (83) 95 101.2 02/26/18 16:00 98.6 69 125/54 (77) 98.6 I&O Intake and Output 02/26/18 02/27/18 19:00 07:00 Intake Total 227.5 ml 432.5 ml Output Total 400 ml Balance -172.5 ml 432.5 ml Intake Oral 200 ml 240 ml IV Total 27.5 ml 192.5 ml Output Urine Total 400 ml # Voids 3 1 Wound: clean, dry Drains: none Cardiovascular: RSR Respiratory: clear Abdomen: soft, flat, non-tender, present bowel sounds Extremities: no cyanosis Laboratory Tests Test 02/27/18 08:02 White Blood Count 11.3 K/UL (4.8-10.8) H Red Blood Count 3.68 M/UL (4.70-6.10) L Hemoglobin 9.9 G/DL (14.2-18.0) L Hematocrit 31.4 % (42.0-52.0) L Mean Corpuscular Volume 85 FL (80-99) Mean Corpuscular Hemoglobin 26.9 PG (27.0-31.0) L Mean Corpuscular Hemoglobin Concent 31.5 G/DL (32.0-36.0) L Red Cell Distribution Width 11.4 % (11.6-14.8) L Platelet Count 249 K/UL (150-450) Mean Platelet Volume 7.7 FL (6.5-10.1) Neutrophils (%) (Auto) 81.8 % (45.0-75.0) H Lymphocytes (%) (Auto) 10.3 % (20.0-45.0) L Monocytes (%) (Auto) 5.4 % (1.0-10.0) Eosinophils (%) (Auto) 1.8 % (0.0-3.0) Basophils (%) (Auto) 0.7 % (0.0-2.0) Sodium Level 140 MMOL/L (136-145) Potassium Level 4.1 MMOL/L (3.5-5.1) Chloride Level 103 MMOL/L (98-107) Carbon Dioxide Level 23 MMOL/L (21-32) Anion Gap 14 mmol/L (5-15) Blood Urea Nitrogen 11 mg/dL (7-18) Creatinine 1.3 MG/DL (0.55-1.30) Estimat Glomerular Filtration Rate mL/min (>60) Glucose Level 104 MG/DL (74-106) Calcium Level 8.9 MG/DL (8.5-10.1) Total Bilirubin 0.7 MG/DL (0.2-1.0) Aspartate Amino Transf (AST/SGOT) 36 U/L (15-37) Alanine Aminotransferase (ALT/SGPT) 50 U/L (12-78) Alkaline Phosphatase 152 U/L (46-116) H Total Protein 6.8 G/DL (6.4-8.2) Albumin 2.9 G/DL (3.4-5.0) L Globulin 3.9 g/dL Albumin/Globulin Ratio 0.7 (1.0-2.7) L Plan Problems: (1) Intractable abdominal pain Assessment & Plan: 87M with abdominal pain. afebrile, HD stable, labs reviewed. no leukocytosis but shift. alk phos mildly elevated. CT with GB wall thickening, normal CBD, possible descending colitis. labs improved. US with possible cholecystitis. MRI with worsening edema. HIDA positive s/p lap oracio. recovering low grade fevers. diet as tolerated activity as tolerated okay to shower okay to d/c from surgical standpoint thank you for this consultation. will follow with recs. Román Kelley Feb 27, 2018 12:55
--- NOTE | 2018-02-27 14:42 | General Progress Note ---
Assessment/Plan Assessment/Plan Assessment - abnormal LFT - cholecystitis - gallstones - s/p lap oracio - OBS Recommendations - follow after lap oracio - follow labs - OOB - diet per surgery Subjective Allergies: Coded Allergies: No Known Allergies (Verified Allergy, Mild, 08/21/10) Subjective Above noted calm POD #3 s/p oracio Objective Last 24 Hour Vital Signs Date Time Temp Pulse Resp B/P (MAP) Pulse Ox O2 Delivery O2 Flow Rate FiO2 02/27/18 12:00 97.8 62 18 131/58 (82) 100 97.8 02/27/18 10:39 98.5 02/27/18 09:40 98.5 02/27/18 09:00 Room Air Room Air 02/27/18 08:18 98.5 72 18 134/60 (84) 96 98.5 02/27/18 04:00 99.5 68 16 126/61 (82) 96 99.5 02/27/18 00:00 98.9 72 20 132/67 (88) 97 98.9 02/26/18 22:20 100.3 100.3 02/26/18 21:20 101.2 02/26/18 21:00 Room Air Room Air 02/26/18 20:00 101.2 79 17 121/64 (83) 95 101.2 02/26/18 16:00 98.6 69 125/54 (77) 98.6 Intake and Output 02/26/18 02/27/18 19:00 07:00 Intake Total 227.5 ml 432.5 ml Output Total 400 ml Balance -172.5 ml 432.5 ml Intake Oral 200 ml 240 ml IV Total 27.5 ml 192.5 ml Output Urine Total 400 ml # Voids 3 1 Laboratory Tests 02/27/18 08:02: White Blood Count 11.3H, Red Blood Count 3.68L, Hemoglobin 9.9L, Hematocrit 31.4L, Mean Corpuscular Volume 85, Mean Corpuscular Hemoglobin 26.9L, Mean Corpuscular Hemoglobin Concent 31.5L, Red Cell Distribution Width 11.4L, Platelet Count 249, Mean Platelet Volume 7.7, Neutrophils (%) (Auto) 81.8H, Lymphocytes (%) (Auto) 10.3L, Monocytes (%) (Auto) 5.4, Eosinophils (%) (Auto) 1.8, Basophils (%) (Auto) 0.7, Sodium Level 140, Potassium Level 4.1, Chloride Level 103, Carbon Dioxide Level 23, Anion Gap 14, Blood Urea Nitrogen 11, Creatinine 1.3, Estimat Glomerular Filtration Rate , Glucose Level 104, Calcium Level 8.9, Total Bilirubin 0.7, Aspartate Amino Transf (AST/SGOT) 36, Alanine Aminotransferase (ALT/SGPT) 50, Alkaline Phosphatase 152H, Total Protein 6.8, Albumin 2.9L, Globulin 3.9, Albumin/Globulin Ratio 0.7L Height (Feet): 5 Height (Inches): 9.00 Weight (Pounds): 185 Objective WDWN AA man NCAT supple CTA RRR Soft NT ND, wounds OK no edema OBS Kristian Hernandez MD Feb 27, 2018 14:41
[2018-02-27 16:22] VITALS: BP 129/57
[2018-02-27 20:00] VITALS: BP 118/68
[2018-02-28] VITALS: BP 125/64
[2018-02-28] MEDS: Piperacillin/Tazobactam 3.375 GM in D5W 110 ML IVPB SCH ×2 (00:27→08:27)
[2018-02-28 04:00] VITALS: BP 119/60
[2018-02-28 08:00] VITALS: BP 123/58
[2018-02-28] MEDS: Pantoprazole Inj IV SCH (08:27)
[2018-02-28] MEDS: Docusate 100mg cap ORAL SCH (08:27)
[2018-02-28] MEDS: Heparin 5000 units/ml inj SUBQ SCH (08:28)
[2018-02-28 12:00] VITALS: BP 124/60
[2018-02-28] MEDS ORDERED: ZOSYN 3.373.375 GM/1 IVPB (12:25)
[2018-02-28] MEDS ORDERED: COLACE100 MG ORAL (12:25)
[2018-02-28] MEDS ORDERED: PROTONIX40 MG ORAL (12:26)
[2018-02-28] MEDS ORDERED: MOM30 ML ORAL (12:27)
[2018-02-28] MEDS ORDERED: TYLENOL325 MG ORAL (12:28)
[2018-02-28] MEDS ORDERED: Tubing IV Secondary IV ONE (15:44)
--- NOTE | 2018-02-28 19:49 | General Progress Note ---
Assessment/Plan Assessment/Plan Assessment - abnormal LFT - cholecystitis - gallstones - s/p lap oracio - OBS Recommendations - follow after lap oracio - follow labs - OOB - diet per surgery - d/c planning Subjective Allergies: Coded Allergies: No Known Allergies (Verified Allergy, Mild, 08/21/10) Subjective Above noted calm POD #4 s/p oracio Objective Last 24 Hour Vital Signs Date Time Temp Pulse Resp B/P (MAP) Pulse Ox O2 Delivery O2 Flow Rate FiO2 02/28/18 12:00 98.8 66 18 124/60 (81) 99 98.8 02/28/18 08:09 Room Air Room Air 02/28/18 08:00 99.0 66 20 123/58 (79) 99 99.0 02/28/18 04:00 98.7 60 18 119/60 (79) 97 98.7 02/28/18 00:00 100.8 76 19 125/64 (84) 95 100.8 02/27/18 21:00 Room Air Room Air 02/27/18 20:00 99.5 71 18 118/68 (85) 99 99.5 Intake and Output 02/27/18 02/28/18 19:00 07:00 Intake Total 350 ml Balance 350 ml Intake Oral 350 ml # Voids 3 3 # Bowel Movements 1 Height (Feet): 5 Height (Inches): 9.00 Weight (Pounds): 185 Objective WDWN AA man NCAT supple CTA RRR Soft NT ND, wounds OK no edema OBS Kristian Hernandez MD Feb 28, 2018 19:49
--- NOTE | 2018-03-01 02:30 | Discharge Summary ---
DATE OF ADMISSION: 02/19/2018 DATE OF DISCHARGE: 02/28/2018 ADMISSION DIAGNOSES: 1. Abdominal pain. 2. Possible cholecystitis. 3. Hypertension. 4. Toxic metabolic encephalopathy. 5. Possible sepsis. DISCHARGE DIAGNOSES: 1. Abdominal pain. 2. Possible cholecystitis. 3. Hypertension. 4. Toxic metabolic encephalopathy. 5. Possible sepsis. HOSPITAL COURSE: This is a pleasant male admitted with complaints of abdominal pain. He had a CT scan and ultrasound that were suspicious for cholecystitis. Surgical and GI consultations were obtained. The patient received antibiotics. Symptoms did not improve. He had a HIDA scan that was positive. He underwent an inpatient laparoscopic cholecystectomy, which he tolerated well. On discharge, he was stable. He will be discharged to a assisted facility for short-term rehab. DISCHARGE MEDICATIONS: Please see discharge medication list for discharge medications. DIET: Regular diet. ACTIVITIES: Ad-reuben. FOLLOWUP: The patient will follow up in one to two days at the assisted facility. Xander Fofana M.D. DR: TERESA JOB#: [id number] CC:
== END 2018-02-28 15:45 | DRG 853 ==
LOC: EMR 12:30 → EDBEDREQ 14:43 → 4E 15:02 → EDBEDREQ 15:50 → 3E 17:57
PROC: 0FT44ZZ Resection of Gallbladder, Percutaneous Endoscopic Approach (ICD-10-PCS; principal; 2018-02-24 16:30)
DX: A41.9 Sepsis, unspecified organism (principal); G92 Toxic encephalopathy; K80.00 Calculus of gallbladder with acute cholecystitis without obstruction; K57.92 Diverticulitis of intestine, part unspecified, without perforation or abscess without bleeding; K52.9 Noninfective gastroenteritis and colitis, unspecified; G20 Parkinson's disease; F02.80 Dementia in other diseases classified elsewhere, unspecified severity, without behavioral disturbance, psychotic disturbance, mood disturbance, and anxiety; I11.9 Hypertensive heart disease without heart failure; R00.1 Bradycardia, unspecified; R74.0 Nonspecific elevation of levels of transaminase and lactic acid dehydrogenase [LDH]
CPT/HCPCS: 36415; 74177; 74181; 76700; 78266; 80048; 80053; 81003; 82248; 83690; 84484; 85007; 85025; 85610; 85730; 93005; 94003; 94150; 99285; J2250; J2405

== ENCOUNTER 2018-07-31 12:52 | Emergency (ER) | payer MEDICARE, OTHER ==
[~2018-07-31] VITALS: Ht 172.7 cm; Wt 72.6 kg
[~2018-07-31 12:52] MED LIST changes: +COLACE100 MG ORAL; +MOM30 ML ORAL; +PROTONIX40 MG ORAL; +TYLENOL325 MG ORAL; +ZOSYN 3.373.375 GM/1 IVPB
[2018-07-31] MEDS ORDERED: TAMSULOSIN HCL0.4 MG ORAL (13:06)
[2018-07-31] MEDS ORDERED: NAMENDA10 MG ORAL (13:06)
[2018-07-31] MEDS ORDERED: ABILIFY10 MG ORAL (13:06)
[2018-07-31] MEDS ORDERED: BYSTOLIC10 MG ORAL (13:06)
[2018-07-31] MEDS ORDERED: ASPIRIN81 MG ORAL (13:06)
--- NOTE | 2018-07-31 13:26 | Emergency Room Report ---
History of Present Illness General Chief Complaint: Lower Extremity Injury Source: Patient Present Illness HPI 87-year-old male with significant history of hypertension, diabetic foot ulcers , diabetes, and multiple hospitalizations here complaining of one day of productive cough with green phlegm as well as congestion. Denies fever or chills, sore throat, ear pain, abdominal, nausea vomiting, urinary symptoms. He also reports he has been meeting with his court clerk on weekly basis for assessment of his diabetic foot and has been managing it with Motrin patient has an appointment with his court clerk tomorrow and at this point is not concerned about his foot. Denies tingling and numbness. Rating the pain 2 out of 10 without radiation. Allergies: Coded Allergies: No Known Allergies (Verified Allergy, Mild, 08/21/10) Patient History Past Medical History: see triage record Past Surgical History: unable to obtain Pertinent Family History: none Immunizations: UTD Reviewed Nursing Documentation: PMH: Agreed; PSxH: Agreed Nursing Documentation-PMH Past Medical History: No History, Except For Hx Hypertension: Yes Hx Neurological Problems: Yes - parkinsons, dementia Review of Systems All Other Systems: negative except mentioned in HPI Physical Exam Vital Signs Date Time Temp Pulse Resp B/P (MAP) Pulse Ox O2 Delivery O2 Flow Rate FiO2 07/31/18 12:56 98.4 86 19 151/69 96 Room Air Sp02 EP Interpretation: reviewed, normal General Appearance: normal inspection, well appearing, no apparent distress, alert Head: normocephalic, atraumatic Eyes: bilateral eye normal inspection, bilateral eye PERRL ENT: normal ENT inspection, normal pharynx Neck: normal inspection, full range of motion, supple Respiratory: normal inspection, lungs clear, normal breath sounds, no respiratory distress, no wheezing Cardiovascular #1: normal inspection, regular rate, rhythm, no gallop, no murmur Gastrointestinal: normal inspection, non tender, soft Rectal: deferred Genitourinary: deferred Musculoskeletal: back normal, gait/station normal, normal range of motion, no calf tenderness, other - chronic diabetic foot right foot Neurologic: normal inspection, alert, oriented x3 Psychiatric: normal inspection, judgement/insight normal, memory normal Skin: warm/dry, palpation normal, other - Diabetic foot Lymphatic: normal inspection, no adenopathy Medical Decision Making PA Attestation All diagnosis and treatment plans were reviewed and discussed with supervising physician Dr. Coe Diagnostic Impression: Primary Impression: Bronchitis Additional Impression: Diabetic foot ER Course 87-year-old male with significant history of hypertension, diabetic foot ulcers , diabetes, and multiple hospitalizations here complaining of one day of productive cough with green phlegm as well as congestion. Denies fever or chills, sore throat, ear pain, abdominal, nausea vomiting, urinary symptoms. He also reports he has been meeting with his court clerk on weekly basis for assessment of his diabetic foot and has been managing it with Motrin patient has an appointment with his court clerk tomorrow and at this point is not concerned about his foot. Denies tingling and numbness. Rating the pain 2 out of 10 without radiation. Ddx considered but are not limited to bronchitis, pneumonia, diabetic foot, infection/cellulitis of right foot Vital signs: are WNL, pt. is afebrile H&PE are most consistent with foot, bronchitis ORDERS: with azithromycin,promethazine, naproxen for limited ED INTERVENTIONS: None required at this time. DISCHARGE: At this time pt. is stable for d/c to home. Will provide printed patient care instructions, and any necessary prescriptions. Care plan and follow up instructions have been discussed with the patient prior to discharge. essentially with antibiotics due to immunocompromise status and will follow-up with the court clerk tomorrow for further management's, take naproxen as needed for pain with food and do not take naproxen with motion Last Vital Signs Date Time Temp Pulse Resp B/P (MAP) Pulse Ox O2 Delivery O2 Flow Rate FiO2 07/31/18 12:56 98.4 86 19 151/69 96 Room Air Disposition: HOME, SELF-CARE Condition: Stable Scripts Azithromycin* (ZITHROMAX*) 250 Mg Tablet 250 MG ORAL DAILY, #6 TAB 0 Refills Take two tables once daily for 1 day, then one tablet once daily for 4 days. Prov: Garima Forrester 07/31/18 Promethazine Hcl (PROMETHAZINE HCL*) 6.25 Mg/5 Ml Syrup 5 ML ORAL Q8HR, #100 ML 0 Refills Prov: Garima Forrester 07/31/18 Naproxen* (NAPROXEN*) 500 Mg Tablet 500 MG ORAL TWICE A DAY, #10 TAB Prov: Garima Forrester 07/31/18 Patient Instructions: Acute Bronchitis, [id number], Diabetes and Foot Care Additional Instructions: follow-up with primary care provider court clerk regarding foot management, patient has an appointment with court clerk tomorrow complains of minimal pain with when taking Motrin. Take medication for bronchitis as direct Garima Forrester Jul 31, 2018 13:26
[2018-07-31] MEDS ORDERED: PROMETHAZI6.25 MG/1 ORAL (13:28)
[2018-07-31] MEDS ORDERED: NAPROXEN500 M2 ORAL (13:28)
[2018-07-31] MEDS ORDERED: ZITHROMAX250 MG ORAL (13:28)
[2018-07-31 13:33] VITALS: BP 159/72
== END 2018-07-31 13:33 | disposition home or self-care (01) ==
LOC: EMR 13:22
DX: J40 Bronchitis, not specified as acute or chronic (principal); E11.621 Type 2 diabetes mellitus with foot ulcer; L97.519 Non-pressure chronic ulcer of other part of right foot with unspecified severity; I10 Essential (primary) hypertension; G20 Parkinson's disease; F02.80 Dementia in other diseases classified elsewhere, unspecified severity, without behavioral disturbance, psychotic disturbance, mood disturbance, and anxiety
CPT/HCPCS: 99283

== ENCOUNTER 2018-11-14 11:24 | Inpatient (IN) | payer MEDICARE, OTHER ==
[~2018-11-14] VITALS: Ht 170.2 cm; Wt 76.7 kg
[~2018-11-14 11:24] MED LIST changes: +ABILIFY10 MG ORAL; +ASPIRIN81 MG ORAL; +BYSTOLIC10 MG ORAL; +NAMENDA10 MG ORAL; +NAPROXEN500 M2 ORAL; +PROMETHAZI6.25 MG/1 ORAL; +TAMSULOSIN HCL0.4 MG ORAL; +ZITHROMAX250 MG ORAL
[2018-11-14 11:40] VITALS: BP 134/63
--- NOTE | 2018-11-14 11:40 | NUR ---
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 A/O X4. NO TRAUMA.
--- NOTE | 2018-11-14 11:57 | Emergency Room Report ---
History of Present Illness General Chief Complaint: Pain Source: Patient Present Illness HPI Patient is an 87-year-old male brought in by family member after increased lower extremity pain. Patient had prior history of plantar puncture wound to his right lower extremity. He had noticed increased pain and swelling to his right foot. Patient had been having increased difficulty with ambulation. He had prior history of some peripheral vascular disease. He had been having increased difficulty with ambulation. Allergies: Coded Allergies: No Known Allergies (Verified Allergy, Mild, 08/21/10) Patient History Past Medical History: see triage record Reviewed Nursing Documentation: PMH: Agreed; PSxH: Agreed Nursing Documentation-PMH Hx Hypertension: Yes Hx Neurological Problems: Yes - parkinsons, dementia Review of Systems All Other Systems: negative except mentioned in HPI Physical Exam Vital Signs Date Time Temp Pulse Resp B/P (MAP) Pulse Ox O2 Delivery O2 Flow Rate FiO2 11/14/18 11:31 97.9 64 13 129/63 98 Room Air Sp02 EP Interpretation: reviewed, normal General Appearance: normal inspection, well appearing, no apparent distress, alert, non-toxic, Chronically Ill Head: atraumatic ENT: normal ENT inspection, hearing grossly normal, normal voice Neck: normal inspection, full range of motion, supple, no bony tend Respiratory: normal inspection, lungs clear, normal breath sounds, no respiratory distress, no retraction, no wheezing Cardiovascular #1: regular rate, rhythm, no edema Gastrointestinal: normal inspection, normal bowel sounds, non tender, soft, no guarding, no hernia Genitourinary: no CVA tenderness Musculoskeletal: normal inspection, back normal, normal range of motion Neurologic: normal inspection, alert, responsive, speech normal Psychiatric: normal inspection, judgement/insight normal, mood/affect normal Skin: normal inspection, normal color, no rash Medical Decision Making Diagnostic Impression: Primary Impression: Cellulitis of foot Additional Impression: Peripheral vascular disease ER Course Patient presented for foot pain. Differential diagnosis include was not limited to cellulitis, osteomyelitis, vascular insufficiency among others. Because of complexity of patient's case laboratory testing and imaging studies were ordered. Patient was noted to have some significant soft tissue swelling to the plantar aspect of his foot. Reportedly patient had a long-standing plantar puncture wound and has been having some swelling since then but has had increased difficulty with ambulation. Per patient's daughter patient is somewhat more intermittently agitated than baseline.Xander Fofana was contacted for inpatient management Labs Test 11/14/18 12:00 11/14/18 12:04 Urine Color Pale yellow Urine Appearance Clear Urine pH 5 (4.5-8.0) Urine Specific [place] 1.015 (1.005-1.035) Urine Protein 1+ (NEGATIVE) Urine Glucose (UA) Negative (NEGATIVE) Urine Ketones Negative (NEGATIVE) Urine Blood Negative (NEGATIVE) Urine Nitrite Negative (NEGATIVE) Urine Bilirubin Negative (NEGATIVE) Urine Urobilinogen Normal MG/DL (0.0-1.0) Urine Leukocyte Esterase Negative (NEGATIVE) Urine RBC 0 /HPF (0 - 0) Urine WBC 0-2 /HPF (0 - 0) Urine Squamous Epithelial Cells Occasional /LPF Urine Bacteria Occasional /HPF (NONE) White Blood Count 5.4 K/UL (4.8-10.8) Red Blood Count 4.43 M/UL (4.70-6.10) Hemoglobin 12.0 G/DL (14.2-18.0) Hematocrit 37.6 % (42.0-52.0) Mean Corpuscular Volume 85 FL (80-99) Mean Corpuscular Hemoglobin 27.0 PG (27.0-31.0) Mean Corpuscular Hemoglobin Concent 31.8 G/DL (32.0-36.0) Red Cell Distribution Width 11.3 % (11.6-14.8) Platelet Count 219 K/UL (150-450) Mean Platelet Volume 7.2 FL (6.5-10.1) Neutrophils (%) (Auto) 68.6 % (45.0-75.0) Lymphocytes (%) (Auto) 22.6 % (20.0-45.0) Monocytes (%) (Auto) 6.7 % (1.0-10.0) Eosinophils (%) (Auto) 1.1 % (0.0-3.0) Basophils (%) (Auto) 0.9 % (0.0-2.0) Sodium Level 143 MMOL/L (136-145) Potassium Level 3.8 MMOL/L (3.5-5.1) Chloride Level 105 MMOL/L (98-107) Carbon Dioxide Level 28 MMOL/L (21-32) Anion Gap 10 mmol/L (5-15) Blood Urea Nitrogen 20 mg/dL (7-18) Creatinine 1.3 MG/DL (0.55-1.30) Estimat Glomerular Filtration Rate mL/min (>60) Glucose Level 106 MG/DL (74-106) Calcium Level 9.3 MG/DL (8.5-10.1) Total Bilirubin 0.3 MG/DL (0.2-1.0) Aspartate Amino Transf (AST/SGOT) 16 U/L (15-37) Alanine Aminotransferase (ALT/SGPT) 13 U/L (12-78) Alkaline Phosphatase 117 U/L (46-116) Troponin I 0.008 ng/mL (0.000-0.056) Total Protein 8.1 G/DL (6.4-8.2) Albumin 4.0 G/DL (3.4-5.0) Globulin 4.1 g/dL Albumin/Globulin Ratio 1.0 (1.0-2.7) EKG Diagnostic Results Rate: normal Rhythm: NSR ST Segments: no acute changes Last Vital Signs Date Time Temp Pulse Resp B/P (MAP) Pulse Ox O2 Delivery O2 Flow Rate FiO2 11/14/18 11:31 97.9 64 13 129/63 98 Room Air Status: unchanged Disposition: ADMITTED INPATIENT Condition: Stable Fredi Coe MD Nov 14, 2018 11:57
--- NOTE | 2018-11-14 12:00 | NUR ---
Note undone in EDM - 11/14/18 at 1505 by BILLIE ED Nurse Note: pt walked in to ED with family member due to pain on right foot for yrs. per daughter, pt stepped on nail couple yrs ago and ever since having pain. multipe bumps noted. no open wound. per pt, worse pain when weight on it. ambulatory with steady gait. Dr. Fofana sent pt to ED for further eval. AAO x4. respirations even and non-labored noted. no fever or chills reported. on engine monitor. will wait for the further order.
--- NOTE | 2018-11-14 12:01 | NUR ---
ED Nurse Note: pt walked in to ED with family member due to pain on right foot for yrs. per daughter, pt stepped on nail couple yrs ago and ever since having pain. multipe bumps noted. no open wound. per pt, worse pain when weight on it. ambulatory with steady gait. Dr. Fofana sent pt to ED for further eval. AAO x3. respirations even and non-labored noted. no fever or chills reported. on quality assurance monitor body. will wait for the further order.
--- NOTE | 2018-11-14 12:05 | NUR ---
ED Nurse Note: URINE AND BLOOD SPECIMENS SENT DOWN TO THE LAB.
[2018-11-14 12:19] LABS: APPEARANCE,URINE CLEAR; BILIRUBIN, URINE NEGATIVE (NEGATIVE); COLOR,URINE PALE YELLOW; GLUCOSE, URINE (UA) NEGATIVE (NEGATIVE); KETONES,URINE NEGATIVE (NEGATIVE); LEUKOCYTE ESTERASE ,URINE NEGATIVE (NEGATIVE); NITRITE,URINE NEGATIVE (NEGATIVE); PH,URINE 5 (4.5-8.0); PROTEIN,URINE 1+ (NEGATIVE); UROBILINOGEN,URINE NORMAL MG/DL (0.0-1.0)
[2018-11-14 12:19] LABS: BASOPHILS % (AUTO) 0.9 % (0.0-2.0); EOSINOPHILS % (AUTO) 1.1 % (0.0-3.0); HEMATOCRIT 37.6 % (42.0-52.0); LYMPHOCYTES % (AUTO) 22.6 % (20.0-45.0); MEAN CORPUSCULAR VOLUME 85 FL (80-99); MONOCYTES % (AUTO) 6.7 % (1.0-10.0); NEUTROPHILS % (AUTO) 68.6 % (45.0-75.0); PLATELET COUNT 219 K/UL (150-450); RED BLOOD COUNT 4.43 M/UL (4.70-6.10); RED CELL DISTRIBUTION WIDTH 11.3 % (11.6-14.8); WHITE BLOOD COUNT 5.4 K/UL (4.8-10.8)
[2018-11-14 12:26] LABS: ANION GAP 10 mmol/L (5-15); BLOOD UREA NITROGEN 20 mg/dL (7-18); CALCIUM 9.3 MG/DL (8.5-10.1); CARBON DIOXIDE 28 MMOL/L (21-32); CHLORIDE 105 MMOL/L (98-107); CREATININE 1.3 MG/DL (0.55-1.30); POTASSIUM 3.8 MMOL/L (3.5-5.1); SODIUM 143 MMOL/L (136-145)
[2018-11-14 12:31] LABS: ALANINE AMINOTRANSFERASE 13 U/L (12-78); ALKALINE PHOSPHATASE 117 U/L (46-116); ASPARTATE AMINO TRANSFERASE 16 U/L (15-37); BILIRUBIN,TOTAL 0.3 MG/DL (0.2-1.0)
[2018-11-14] MEDS ORDERED: cefTRIAXone 1 GM in NS 55 ML IVPB ONE (14:00)
[2018-11-14 14:33] VITALS: BP 128/78
--- NOTE | 2018-11-14 15:00 | NUR ---
ED Nurse Note: unable to do med-reconcile due to locked by Ritchie.
--- NOTE | 2018-11-14 15:10 | NUR ---
ED Nurse Note: 3E nurse unable to take a report. they want ED to call them after 30 min to 1 hr later. Charge nurse notified.
--- NOTE | 2018-11-14 15:31 | NUR ---
ED Nurse Note: Reports given to EDWIN Jackson.
--- NOTE | 2018-11-14 15:31 | NUR ---
ED Nurse Note: pt wants to keep the william with him.
--- NOTE | 2018-11-14 15:37 | Diagnostic Imaging Report ---
Indication: Increased lower extremity pain, right foot pain and swelling Technique: Spiral acquisitions obtained through the right foot. No IV contrast utilized, referring physician request. Multiplanar reconstructions were generated. Total dose length product No acute fractures. mGycm. CTDIvol(s) 15 mGy. Dose reduction achieved using automated exposure control Comparison: none Findings: No acute fractures. No dislocations. No definite osseous erosions, osteolytic lesions, or unusual periosteal reaction. No definite discrete fluid collections. However, evaluation for such is limited in the absence of IV contrast. There is skin thickening in the the plantar region. Impression: No acute fractures No definite findings to suggest acute osteomyelitis. Note, however, limited sensitivity of CT for such. If there is high clinical suspicion then MRI or three-phase bone scan should be considered. No definite fluid collection to suggest abscess. However, evaluation for such is limited in the absence of IV contrast The CT scanner at [facility] is accredited by the [employer] and the scans are performed using protocols designed to limit radiation exposure to as low as reasonably achievable to attain images of sufficient resolution adequate for diagnostic evaluation. Near
[2018-11-14 16:00] VITALS: BP 144/63
--- NOTE | 2018-11-14 16:00 | NUR ---
NURSE NOTES: Pt recived from ER for cellulitis to right foot. Right foot is very dry, does have a small area which is tender to touch. breathing room air lung oscar clear, abdominal sounds present, bilateral and in store representative firm and equal, pedal pulses palpable, . Per pt he is continent of urine and bowel , but occasionally has urgency. skin is clear with exception to keloid on left upper back , discoloration to left upper foot, no redness noted upon, assessment, nor change in temperature to limbs. Pt is ambulatory, but due to tenderness to foot walks with heel elevated. Dr Steven phoned for orders
[2018-11-14] MEDS ORDERED: Milk of Magnesia 30ml Ud ORAL PRN (17:00)
[2018-11-14] MEDS: Docusate 100mg cap ORAL SCH (18:32)
[2018-11-14] MEDS: Vancomycin 750mg/NS 275ml IVPB SCH ×2 (18:33)
[2018-11-14] MEDS: Heparin 5000 units/ml inj SUBQ SCH (18:34)
--- NOTE | 2018-11-14 18:48 | NUR ---
CASE MANAGEMENT: REVIEW 87/M PRESENTED TO ED FROM HOME CC: RIGHT FOOT PAIN & SWELLING . DIFFICULTY AMBULATING SI: RIGHT FOOT CELLULITIS . PERIPHERAL VASCULAR DISEASE T 98.1 HR 55 RR 17 BP 144/63 SAT 98% ROOM AIR H/H 12.0/37.6 BUN 20 ALK PHOS 117 IS: CEFTRIAXONE IV X1 MED/SURG STATUS DCP: PATIENT IS FROM HOME
--- NOTE | 2018-11-14 20:00 | NUR ---
HAND-OFF: Report given to Trisha PINEDA.
--- NOTE | 2018-11-14 20:00 | NUR ---
NURSE NOTES: Pt lying in bed w/bed in lowest position and call light within reach. Pt A&Ox2, VSS, and in no apparent distress at this time. IV site intact/asymptomatic w/Vancomycin running; and rt foot skin intact. Will continue to monitor.
--- NOTE | 2018-11-14 20:37 | NUR ---
NURSE NOTES: Pt is currently sleeping no noted possible adverse effect of antibiotic noted . current plan of care will be followed
[2018-11-14 20:46] VITALS: BP 160/76
[2018-11-14] MEDS ORDERED: HydrALAZINE 25mg tab ORAL PRN (21:34)
[2018-11-14] MEDS: Tamsulosin 0.4mg cap ORAL SCH (21:55)
[2018-11-14] MEDS ORDERED: Piperacillin/Tazobactam 3.375 GM in NS 110 ML IVPB SCH (22:00)
[2018-11-15 00:32] VITALS: BP 148/80
[2018-11-15 04:00] VITALS: BP 119/63
[2018-11-15] MEDS: Vancomycin 750mg/NS 275ml IVPB SCH ×4 (05:00→18:56)
[2018-11-15] MEDS: Piperacillin/Tazobactam 3.375 GM in NS 110 ML IVPB SCH ×3 (06:35→23:00)
--- NOTE | 2018-11-15 07:07 | NUR ---
HAND-OFF: Report given to EDWIN Lainez.
--- NOTE | 2018-11-15 07:14 | NUR ---
NURSE NOTES: Received report from Jina Addendum: 11/15/18 at 0716 by PEDRO BANSAL RN Received report from EDWIN Rico. Pt in bed asleep, respiration regular and unlabored, bed in lowest position, call light within reach.
[2018-11-15 08:00] VITALS: BP 136/70
[2018-11-15] MEDS: Docusate 100mg cap ORAL SCH ×2 (08:09→18:56)
[2018-11-15] MEDS: Aspirin Baby 81mg ORAL SCH (08:11)
[2018-11-15] MEDS: Memantine 10mg tab ORAL SCH (08:11)
[2018-11-15] MEDS: ARIPiprazole 10mg tab ORAL SCH (08:11)
[2018-11-15] MEDS: Heparin 5000 units/ml inj SUBQ SCH ×2 (08:13→20:48)
[2018-11-15 11:35] VITALS: BP 122/65
--- NOTE | 2018-11-15 11:38 | NUR ---
NURSE NOTES: Notified Dr. Fofana Bradycardia. HR Left Brachial 43 Portable Machine BP 122/65. Manual palpation X2 HR 40. Pt was given Bystolic 10mg with morning medication administration. At 0800 BP 136/70 HR 65
[2018-11-15 16:00] VITALS: BP 124/56
--- NOTE | 2018-11-15 18:27 | Cardiology Report ---
APPROVED REPORT EKG Measurement Heart [id number] PA [id number] Sinus bradycardia with marked sinus arrhythmia with 1st degree AV block Otherwise normal ECG
--- NOTE | 2018-11-15 18:51 | Consultation ---
Consult Note Assessment/Plan A/ 1) Right foot pain - cellulitis vs PVD vs lower back radiculopathy 2) Bilateral flat feet P/ 1) Patient states pain began approximately a month ago and is intermittent. Will start patient on Neurontin 100mg qhs. WIll also order arterial studies to evaluate arterial status 2) No open wounds noted, no surgical intervention is indicated at this time 3) Will follow Thank you Boone Farias DPM Nov 15, 2018 18:51
--- NOTE | 2018-11-15 19:21 | NUR ---
HAND-OFF: Report given to EDWIN Rico.
--- NOTE | 2018-11-15 19:30 | NUR ---
NURSE NOTES: Pt lying in bed w/bed in lowest position and call light within reach. Pt A&Ox4 and in no apparent distress; pt bradycardic but asymptomatic; MD aware. IV site intact/asymptomatic w/IV abx running and skin intact. Will continue to monitor.
[2018-11-15 20:00] VITALS: BP 115/53
[2018-11-15] MEDS: Tamsulosin 0.4mg cap ORAL SCH (20:46)
--- NOTE | 2018-11-15 21:00 | History and Physical Report ---
DATE OF ADMISSION: 11/14/2018 CHIEF COMPLAINT: Left foot cellulitis. HISTORY OF PRESENT ILLNESS: The patient is a pleasant 87-year-old male. He has a history of mild dementia, hypertension, hypertensive heart disease, history of sinus bradycardia, and BPH, who presented from home with complaints of left foot pain. According to the patient's daughter, he has had pain in the left foot and subjective fevers and chills. He has been unable to ambulate because of the pain. There are no reports of any trauma. In the ER, he was diagnosed with cellulitis. He did have a CAT scan of the foot that showed no evidence of any abscess or osteomyelitis. The patient is started on antibiotic therapy and is now admitted for further evaluation and care. PAST MEDICAL HISTORY: As above. PAST SURGICAL HISTORY: None. CURRENT MEDICATIONS: Reconciled and reviewed. ALLERGIES: None. FAMILY HISTORY: None. SOCIAL HISTORY: Negative for tobacco, ethanol, or drugs. REVIEW OF SYSTEMS: GENERAL: Positive for fevers and chills, but no night sweats. HEENT: No headaches or visual changes. CARDIOPULMONARY: No chest pain or shortness of breath. GASTROINTESTINAL: No nausea or vomiting. GENITOURINARY: No urgency or frequency. MUSCULOSKELETAL: No joint pain or swelling. NEUROLOGIC: No evidence of seizures. PHYSICAL EXAMINATION: VITAL SIGNS: Temperature 98 degrees, pulse 40, respirations 14, and blood pressure 122/65. GENERAL: The patient is well-developed, in no apparent distress. HEART: Regular rate and rhythm. Bradycardic. LUNGS: Clear. ABDOMEN: Soft, nontender, and nondistended. EXTREMITIES: Left foot is tender. There is slight erythema and warmth noted. LABORATORY DATA: His UA was clear. White count was 5 and hemoglobin 12. Sodium 143 and potassium is 3.8. Troponin was 0.008. ASSESSMENT: This is a pleasant male admitted with complaints of left foot cellulitis. 1. Left foot cellulitis. 2. Bradycardia. 3. Hypertension. 4. Benign prostatic hypertrophy. PLAN: 1. Intravenous antibiotic therapy. 2. Podiatry consultation. 3. Cardiology consultation regarding the patient's bradycardia. We will discontinue the patient's Bystolic. 4. PT and OT evaluations will be obtained. 5. Plan of care was discussed with the patient's daughter. Xander Waldemar Fofana DR: TERESA JOB#: [id number] CC:
[2018-11-16] VITALS: BP 130/56
--- NOTE | 2018-11-16 01:30 | Consultation ---
DATE OF CONSULTATION: 11/15/2018 CONSULTING PHYSICIAN: Boone Sanchez D.P.M. REQUESTING PHYSICIAN: Xander Fofana M.D. REASON FOR CONSULTATION: Pain in right foot. HISTORY OF PRESENT ILLNESS: The patient is an 87-year-old male, who was admitted to [facility] on 11/14/2018 for foot cellulitis. The patient states that he stepped on nail in 1963 and states that his foot is never the same since. He is inquiring whether it is possible current episode is from that traumatic event. The patient states that his pain became more consistent and worsened about a month ago, although still claims that the symptoms are intermittent. The patient is able to ambulate unassisted. Denies any fevers, chills, nausea, or vomiting. PAST MEDICAL HISTORY: Significant for hypertension, encephalopathy, history of transaminitis, and peripheral vascular disease. MEDICATIONS: Per MAR and include aspirin, Zosyn, and vancomycin. ALLERGIES: He has no known drug allergies. SOCIAL HISTORY: Noncontributory. FAMILY HISTORY: Noncontributory. REVIEW OF SYSTEMS: HEENT: The patient denies any headaches, blurred vision, or ringing in the ears. CARDIOVASCULAR: The patient denies any chest pain or shortness of breath. GENITOURINARY: The patient denies any urgency, frequency, burning upon urination, or hematuria. GASTROINTESTINAL: The patient denies any constipation, diarrhea, or blood in the stool. PHYSICAL EXAMINATION: VITAL SIGNS: Temperature is 98.3, pulse is 40, respirations 14, and blood pressure is 122/65. He is saturating 100% on room air. EXTREMITIES: Lower extremity physical exam, vascular, weakly palpable pedal pulses noted bilaterally. Feet are equally warm. Pitting edema is noted bilaterally. No cyanosis is noted bilaterally. DERMATOLOGICAL: There is no open sores or lesions noted. Specifically in the right common foot, no puncture wounds or portals are noted. Digital interspaces are clear. There is scaling noted of the skin, mostly on the right than the left. MUSCULOSKELETAL: The patient has a collapsed medial arches bilaterally. He has 4/5 muscle strength in anterior, lateral, and posterior muscle groups of bilateral lower extremities. No other gross deformities are noted. NEUROLOGICAL: The patient denies paresthesias upon palpation of the plantar aspect of the right foot. Otherwise, gross sensory exam is unremarkable. LABORATORY DATA: White blood cell count is 5.4, hemoglobin and hematocrit is 12.0 and 37.6, and platelet count is 11.3. Potassium is 3.3, BUN is 20, and creatinine is 1.3. Albumin is 4.0. Lower extremity imaging, right foot CT shows no acute fractures. No definitive findings to suggest osteomyelitis. No fluid collection is noted. ASSESSMENT: 1. Right foot pain, possible cellulitis versus peripheral arterial disease versus lower back radiculopathy. 2. Bilateral flatfeet. PLAN: 1. The patient states pain began approximately a month ago and is intermittent in nature. We will start the patient on Neurontin 100 mg at bedtime daily. We will also order arterial studies to evaluate arterial status. 2. No open wounds noted. No surgical intervention is indicated at this time. 3. We will follow. Thank you for the courtesy of this consultation, Dr. Fofana. Boone Sanchez D.P.M. DR: KEN JOB#: [id number] CC:
--- NOTE | 2018-11-16 03:45 | Consultation ---
DATE OF CONSULTATION: 11/14/2018 CARDIOLOGY CONSULTATION CONSULTING PHYSICIAN: Ravi Trevino M.D. REQUESTING PHYSICIAN: Xander Fofana M.D. REASON FOR CONSULTATION: Bradycardia. HISTORY OF PRESENT ILLNESS: This is an 87-year-old white male, known to me from prior care with a history of long-standing history of hypertension, hypertensive heart disease, and sinus node disease with baseline bradycardia. The patient presented to the hospital with leg pain and was noted to have swelling of his right foot consistent with cellulitis. His ambulatory capacity has decreased during this period. He has not had any loss of consciousness or dizziness, but does have baseline dementia. PAST MEDICAL HISTORY: 1. Cerebrovascular disease with dementia. 2. Degenerative disk disease. 3. Osteoarthritis. 4. Hyperlipidemia. 5. Peripheral artery disease. 6. Sinus node disease. 7. Hypertension. MEDICATIONS: Reviewed and reconciled. ALLERGIES: None. FAMILY HISTORY: Noncontributory. SOCIAL HISTORY: Nonsmoker. He is a . No alcohol or substance abuse. REVIEW OF SYSTEMS: A 10-point review of systems is otherwise unremarkable with pertinent data outlined above. Outpatient cardiovascular work up has included: 1. 2DEcho with normal EF and mild degenerative valve disease 2. Stress test revealed adequate chronotropic competence. PHYSICAL EXAM: VITAL SIGNS: Blood pressure 129/63, pulse 64, and respirations 13. Afebrile. GENERAL: A male pattern balding. Arcus senilis. HEENT: Oropharynx clear. NECK: Supple. No bruits. Jugular venous pressure normal. LUNGS: Clear. CARDIAC: Regular. Normal S1, S2 with a fourth heart sound. ABDOMEN: Soft and nontender. EXTREMITIES: Good pulses. A 1+ edema on the right. LABORATORY AND DIAGNOSTIC DATA: EKG, sinus bradycardia, first-degree AV block, and arrhythmia. BUN 20 and creatinine 1.3. Troponin negative. Potassium 3.8, white count 5.4, and hemoglobin 12. IMPRESSION: 1. Cellulitis. 2. Peripheral artery disease with radiculopathy. 3. Sinus bradycardia. 4. Sinus node disease. 5. Conduction system disease of the heart. 6. Hypertensive heart disease. 7. Cerebrovascular disease with dementia. PLAN: 1. Antimicrobials. 2. Noninvasive vascular studies. 3. Consider down titration of beta-arcelia regimen. 4. Monitor blood pressure and adjust therapy accordingly. 5. DVT prophylaxis. Ravi Trevino M.D. DR: VIOLETA JOB#: [id number] CC: MARY
--- NOTE | 2018-11-16 03:45 | Progress Note ---
DATE: 11/15/2018 CARDIOLOGY PROGRESS NOTE SUBJECTIVE: The patient continues to have heart rates in the 40s. No loss of consciousness or dizziness. His mental status is at baseline with dementia. OBJECTIVE: VITAL SIGNS: Blood pressure 124/56, pulse 41, and respirations 16. LUNGS: Clear. CARDIAC: Regular. Slow S1 and S2. ABDOMEN: Soft. EXTREMITIES: No edema. Right foot has warmth and tenderness. IMAGING: CT scan revealed no fluid collection or abscess or fracture. IMPRESSION: 1. Right foot pain, possible vascular etiology, possible cellulitis. 2. Sinus node disease with sinus arrhythmia. 3. Bradyarrhythmia, asymptomatic. 4. Hypertensive heart disease. 5. Diastolic dysfunction with no signs of acute congestive heart failure. PLAN: 1. Beta-arcelia discontinued. 2. Observe for reflex tachyarrhythmia. 3. Titrate antihypertensives. 4. Pain control. 5. Await noninvasive vascular studies. 6. Empiric antibiotics and skin care. 7. Physical and occupational therapy assessments. Ravi Trevino M.D. DR: VIOLETA JOB#: [id number] CC:
[2018-11-16 04:00] VITALS: BP 125/56
[2018-11-16] MEDS: Vancomycin 750mg/NS 275ml IVPB SCH ×2 (06:05)
--- NOTE | 2018-11-16 07:05 | NUR ---
HAND-OFF: Report given to EDWIN Lainez.
--- NOTE | 2018-11-16 07:08 | NUR ---
NURSE NOTES: Received report from EDWIN Rico. Pt in bed, awake, talkative, eating breakfast, no complaints of pain, no dizziness, fatigue, no apparent distress noted, bed in lowest position, call light within reach.
[2018-11-16] MEDS: Piperacillin/Tazobactam 3.375 GM in NS 110 ML IVPB SCH (07:30)
[2018-11-16] MEDS: ARIPiprazole 10mg tab ORAL SCH (07:57)
[2018-11-16] MEDS: Memantine 10mg tab ORAL SCH (07:57)
[2018-11-16] MEDS: Aspirin Baby 81mg ORAL SCH (07:57)
[2018-11-16] MEDS: Docusate 100mg cap ORAL SCH ×2 (07:57→17:17)
[2018-11-16] MEDS: Heparin 5000 units/ml inj SUBQ SCH ×2 (07:58→20:24)
[2018-11-16 08:00] VITALS: BP 120/60
--- NOTE | 2018-11-16 09:04 | General Progress Note ---
Assessment/Plan Problem List: (1) Hypertension ICD Codes: I10 - Essential (primary) hypertension SNOMED: 67075191 (2) Cellulitis of foot ICD Codes: L03.119 - Cellulitis of unspecified part of limb SNOMED: 127390547 Status: stable Assessment/Plan cont iv abx pain rx neurontin check sed rate and uric acid, elevate Subjective ROS Limited/Unobtainable: No Constitutional: Reports: malaise, weakness HEENT: Reports: no symptoms Cardiovascular: Reports: no symptoms Respiratory: Reports: no symptoms Gastrointestinal/Abdominal: Reports: no symptoms Genitourinary: Reports: no symptoms Neurologic/Psychiatric: Reports: no symptoms Endocrine: Reports: no symptoms Hematologic/Lymphatic: Reports: no symptoms Allergies: Coded Allergies: No Known Allergies (Verified Allergy, Mild, 08/21/10) All Systems: reviewed and negative except above Subjective cards and podiatry appreciated. c/o right foot pain. Objective Last 24 Hour Vital Signs Date Time Temp Pulse Resp B/P (MAP) Pulse Ox O2 Delivery O2 Flow Rate FiO2 11/16/18 08:00 97.9 41 19 120/60 (80) 99 11/16/18 04:00 97.4 53 18 125/56 (79) 97 11/16/18 00:00 98.5 44 18 130/56 (80) 98 11/15/18 21:00 Room Air 11/15/18 20:00 98.2 43 18 115/53 (73) 98 11/15/18 16:00 98.8 40 16 124/56 (78) 98 41 11/15/18 11:35 98.3 40 14 122/65 (84) 100 43 Intake and Output 11/15/18 11/16/18 19:00 07:00 Intake Total 1912.5 ml 293.333 ml Output Total 1300 ml 200 ml Balance 612.5 ml 93.333 ml Intake Oral 1720 ml IV Total 192.5 ml 293.333 ml Output Urine Total 1300 ml 200 ml # Voids 5 # Bowel Movements 2 Laboratory Tests 11/16/18 04:50: Vancomycin Level Trough 12.6H Height (Feet): 5 Height (Inches): 7.00 Weight (Pounds): 169 General Appearance: WD/WN, alert Neck: supple Cardiovascular: normal rate, regular rhythm Respiratory/Chest: chest wall non-tender, lungs clear, normal breath sounds Abdomen: normal bowel sounds, non tender, soft, no organomegaly Edema: no edema noted Arm (L), no edema noted Arm (R), no edema noted Leg (L), no edema noted Leg (R), no edema noted Pedal (L), no edema noted Pedal (R), no edema noted Generalized Neurologic: front desk host II-XII grossly normal, no motor/sensory deficits, abnormal gait Xander Fofana MD Nov 16, 2018 09:04
[2018-11-16] MEDS: ceFAZolin sod 1 GM in D5W 55 ML IVPB SCH ×2 (10:53→17:17)
[2018-11-16 12:00] VITALS: BP 123/64
--- NOTE | 2018-11-16 13:02 | NUR ---
CHARGE NURSE NOTE: BP 40bpm (8 am), 43(bpm) noon. Dr. Trevino notified, no new orders given.
[2018-11-16 16:00] VITALS: BP 120/47
[2018-11-16 20:00] VITALS: BP 125/58
[2018-11-16] MEDS: Tamsulosin 0.4mg cap ORAL SCH (20:23)
--- NOTE | 2018-11-16 23:49 | NUR ---
NURSE NOTES: Received report from Lexus Lainez. Patient is aaox2-3, confused. No signs of distress. No pain noted. IV site patent. Due meds given, needs attended to. Bed low, call light within reach. Addendum: 11/17/18 at 0028 by MOUSTAPHA RESENDEZ RN gait unsteady, bed alarm on. Reoriented to room.
[2018-11-17] VITALS: BP 121/63
--- NOTE | 2018-11-17 00:45 | Progress Note ---
DATE: 11/16/2018 CARDIOLOGY PROGRESS NOTE SUBJECTIVE: The patient has not had any loss of consciousness. Complains of dizziness. He continues to have right foot pain. OBJECTIVE: VITAL SIGNS: Blood pressure 120/60, pulse 41, and respirations 19. Afebrile. LUNGS: Clear. CARDIAC: Regular. Slow rate. Normal S1, S2. ABDOMEN: Soft. EXTREMITIES: There is no edema. Right foot is somewhat red and tender. LABORATORY DATA: Sedimentation rate is 50. Uric acid normal at 3.7. IMPRESSION: 1. Low likelihood of gout. 2. 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 3. Asymptomatic sinus bradycardia. 4. Chronic hypertensive heart disease. PLAN: 1. Off beta-arcelia. 2. No indication for pacemaker. 3. Antimicrobials. 4. Anti-inflammatory therapy. 5. Physical therapy management. Ravi Trevino M.D. DR: VIOLETA JOB#: [id number] CC:
[2018-11-17] MEDS: ceFAZolin sod 1 GM in D5W 55 ML IVPB SCH ×3 (02:52→18:00)
[2018-11-17 04:00] VITALS: BP 128/72
--- NOTE | 2018-11-17 07:54 | NUR ---
HAND-OFF: Report given to EDWIN Mendenhall. Patient stable.
--- NOTE | 2018-11-17 07:55 | NUR ---
NURSE NOTES: Report received from outgoing RN, rounds made. Patient alert, oriented x2 calm, no SOB on RA. Patient attempting to get out of bed without assist to go to the bathroom. Patient ambulated to bathroom with RN standby. Gait slow, unsteady. Instructed patient to use call light for safety. Right foot with mild swelling, non pitting, no redness, denies pain, skin intact/dry. LAC heplock intact, asymptomatic. Bed in lowest position, call light in reach, will continue to monitor.
--- NOTE | 2018-11-17 08:07 | General Progress Note ---
Assessment/Plan Problem List: (1) Hypertension ICD Codes: I10 - Essential (primary) hypertension SNOMED: 57896746 (2) Cellulitis of foot ICD Codes: L03.119 - Cellulitis of unspecified part of limb SNOMED: 235023877 Status: stable Assessment/Plan cont iv abx pain rx neurontin dc planning to snf. family requesting [facility](pt has previously been there) Subjective ROS Limited/Unobtainable: No Constitutional: Reports: no symptoms HEENT: Reports: no symptoms Cardiovascular: Reports: no symptoms Respiratory: Reports: no symptoms Gastrointestinal/Abdominal: Reports: no symptoms Genitourinary: Reports: no symptoms Neurologic/Psychiatric: Reports: no symptoms Endocrine: Reports: no symptoms Hematologic/Lymphatic: Reports: no symptoms Allergies: Coded Allergies: No Known Allergies (Verified Allergy, Mild, 08/21/10) All Systems: reviewed and negative except above Subjective decreased foot pain. no fevers or chills. on iv abx. vascular studies normal Objective Last 24 Hour Vital Signs Date Time Temp Pulse Resp B/P (MAP) Pulse Ox O2 Delivery O2 Flow Rate FiO2 11/17/18 04:00 97.9 43 18 128/72 (90) 97 11/17/18 00:00 98.1 56 18 121/63 (82) 97 11/16/18 21:00 Room Air 11/16/18 20:00 98.5 47 19 125/58 (80) 97 11/16/18 16:00 97.4 40 19 120/47 (71) 98 11/16/18 12:00 97.7 43 19 123/64 (83) 99 11/16/18 09:00 Room Air Intake and Output 11/16/18 11/17/18 18:59 06:59 Intake Total 1943.833 ml 200 ml Output Total 1100 ml Balance 843.833 ml 200 ml Intake Oral 1440 ml 200 ml IV Total 503.833 ml Output Urine Total 1100 ml # Voids 4 3 # Bowel Movements 2 Laboratory Tests 11/16/18 10:45: Erythrocyte Sedimentation Rate 50H, Uric Acid 3.7 Height (Feet): 5 Height (Inches): 7.00 Weight (Pounds): 169 General Appearance: WD/WN, alert Neck: supple Cardiovascular: regular rhythm Respiratory/Chest: chest wall non-tender, lungs clear, no respiratory distress Abdomen: normal bowel sounds Edema: no edema noted Arm (L), no edema noted Arm (R), no edema noted Leg (L), no edema noted Leg (R), no edema noted Pedal (L), no edema noted Pedal (R), no edema noted Generalized Xander Fofana MD Nov 17, 2018 08:07
[2018-11-17 09:00] VITALS: BP 147/65
[2018-11-17] MEDS: ARIPiprazole 10mg tab ORAL SCH (10:15)
[2018-11-17] MEDS: Docusate 100mg cap ORAL SCH ×2 (10:15→18:00)
[2018-11-17] MEDS: Aspirin Baby 81mg ORAL SCH (10:15)
[2018-11-17] MEDS: Memantine 10mg tab ORAL SCH (10:15)
[2018-11-17] MEDS: Heparin 5000 units/ml inj SUBQ SCH (10:17)
--- NOTE | 2018-11-17 10:45 | NUR ---
NURSE NOTES: 2D echo done at bedside at 1000. Results pending.
--- NOTE | 2018-11-17 11:22 | NUR ---
DISCHARGE PLANNING RECEIVED CALL FROM DR DURÁN FAXED CLINICALS TO [facility] AWAIT ACCEPTANCE AND ROOM NUMBER
[2018-11-17 12:00] VITALS: BP 144/65
--- NOTE | 2018-11-17 13:00 | NUR ---
DISCHARGE PLANNED PATIENT HAS BEEN ACCEPTED AT [facility] ER ROOM 17A SKILLED T: [phone] FOR NURSE TO NURSE REPORT [facility] HAS BEEN ARRANGED FOR [address] [employer] APPRENTICE SPOKE WITH DAUGHTER GERALD WHO IS IN AGREEMENT WITH DISCHARGE
[2018-11-17] MEDS ORDERED: Tubing IV Secondary IV ONE (14:51)
--- NOTE | 2018-11-17 15:15 | NUR ---
NURSE NOTES: Report called to [facility], spoke with Melissa PINEDA. Patient's daughter at bedside this afternoon, notified of orders for discharge/transfer (plans to meet patient there). IV heplock discontinued, no active bleeding. No c/o pain/SOB on RA. Patient transferred to [facility] via [facility] with all belongings, in stable condition.
--- NOTE | 2018-11-17 16:24 | Diagnostic Imaging Report ---
APPROVED REPORT CPT Code: 42117 Symptoms Claudication : BILATERAL: Common femoral artery waveform analysis is within normal limits at rest. Color flow duplex sonography reveals minimal calcification throughout the superficial femoral, and popliteal arteries. There is no evidence of stenosis or occlusion within these segments. The tibioperoneal trunk was not well visualized. The Doppler tibial artery waveform analysis is compatible with mild ischemia at rest.
--- NOTE | 2018-11-18 | Progress Note ---
DATE: 11/17/2018 CARDIOLOGY PROGRESS NOTE: SUBJECTIVE: The patient has no chest pain or shortness of breath. Right foot pain has decreased. OBJECTIVE: VITAL SIGNS: Blood pressure 128/72, heart rate 43 to 56, respiratory rate 18, afebrile. NECK: Supple. LUNGS: Clear. CARDIAC: Regular. Slow S1 and S2 with a fourth heart sound. ABDOMEN: Soft. EXTREMITIES: Trace edema. IMPRESSION: 1. Asymptomatic sinus bradycardia. 2. Adequate chronotropic competence. 3. Neuropathy and pain of the right foot. No vascular insufficiency. 4. Hypertensive heart disease with overall adequate blood pressure control. 5. Probable cellulitis. PLAN: Stable for group home facility to complete antimicrobials, improve mobility, and improve cardiovascular parameters overall. Discharge medication regimen reviewed and reconciled. There is no indication for permanent pacemaker. The patient has been asymptomatic for years with his current heart rate and rhythm and has had prior stress test that demonstrated adequate chronotropic competence. Raiv Trevino M.D. DR: YOMAIRA JOB#: [id number] CC:
--- NOTE | 2018-11-18 00:30 | Discharge Summary ---
DATE OF ADMISSION: 11/14/2018 DATE OF DISCHARGE: 11/17/2018 ADMITTING DIAGNOSES: 1. Cellulitis of the right foot, rule out gout. 2. History of bradycardia. 3. Dementia. 4. Hypertension. DISCHARGE DIAGNOSES: 1. Cellulitis of the right foot, rule out gout. 2. History of bradycardia. 3. Dementia. 4. Hypertension. HOSPITAL COURSE: The patient is a pleasant male admitted with complaints of right foot pain. He was initially thought to have cellulitis. He had a CAT scan that showed no evidence of any abscess or osteomyelitis. Podiatry and Cardiology consultations were obtained because of pain and bradycardia. Podiatry felt that the patient most likely had a neuropathy. He was continued on antibiotic therapy for possible cellulitis. His Bystolic was discontinued. On discharge, the patient was stable, but he had a hard time walking. Family requested that he go to a custodial facility for short-term rehab. DISCHARGE MEDICATIONS: Please see discharge medication list for discharge medications. DIET: Cardiac diet. ACTIVITIES: Ad-reuben. FOLLOWUP: The patient will follow up in 1 to 2 days at the custodial facility. Xander Fofana M.D. DR: JARRELL JOB#: [id number] CC:
== END 2018-11-17 15:15 | DRG 603 ==
LOC: EMR 12:30 → 3E 13:42 → EDBEDREQ 14:57
DX: L03.115 Cellulitis of right lower limb (principal); I73.9 Peripheral vascular disease, unspecified; R00.1 Bradycardia, unspecified; N40.0 Benign prostatic hyperplasia without lower urinary tract symptoms; F01.50 Vascular dementia, unspecified severity, without behavioral disturbance, psychotic disturbance, mood disturbance, and anxiety; I11.9 Hypertensive heart disease without heart failure; M19.90 Unspecified osteoarthritis, unspecified site; E78.5 Hyperlipidemia, unspecified
CPT/HCPCS: 36415; 80053; 80202; 81001; 84484; 84550; 85025; 85651; 93005; 93306; 93925; 96365; 99285

== ENCOUNTER 2019-04-19 09:25 | Emergency (ER) | payer MEDICARE, OTHER ==
[~2019-04-19] VITALS: Ht 172.7 cm; Wt 81.6 kg
[2019-04-19] MEDS ORDERED: NAMENDA5 MG ORAL (09:32)
--- NOTE | 2019-04-19 09:32 | NUR ---
ED Nurse Note: Patient and daughter does not recall a complete list of his medications.
[2019-04-19] MEDS ORDERED: Acetaminophen 500mg (ES) tab ORAL ONE (09:45)
[2019-04-19] MEDS ORDERED: Naproxen 500mg tab ORAL ONE (09:45)
[2019-04-19] MEDS ORDERED: LIDODERM700 M1 TOPIC (09:46)
--- NOTE | 2019-04-19 09:46 | Emergency Room Report ---
History of Present Illness General Chief Complaint: Pain Source: Patient Present Illness HPI 88-year-old male history of hypertension BPH presents with left trapezius pain, he endorses an ache that is worsened with raising his left arm he is got pain that radiates from that area to his left arm no chest pain or shortness of breath, pain is mild and intermittent he thinks he may have slept on a pillow wrong, patient denies any dyspnea on exertion Allergies: Coded Allergies: No Known Allergies (Verified Allergy, Mild, 08/21/10) Patient History Past Medical History: see triage record Reviewed Nursing Documentation: PMH: Agreed; PSxH: Agreed Nursing Documentation-PMH Past Medical History: No Stated History Hx Cardiac Problems: No Hx Hypertension: No Hx Pacemaker: No Hx Asthma: No Hx COPD: No Hx Diabetes: No Hx Cancer: No Hx Gastrointestinal Problems: No Hx Dialysis: No History Of Psychiatric Problem: No Hx Neurological Problems: Yes - Dementia Hx Cerebrovascular Accident: No Hx Seizures: No Review of Systems All Other Systems: negative except mentioned in HPI Physical Exam Vital Signs Date Time Temp Pulse Resp B/P (MAP) Pulse Ox O2 Delivery O2 Flow Rate FiO2 04/19/19 09:28 98.4 53 16 128/71 (90) 97 Room Air Sp02 EP Interpretation: reviewed, normal General Appearance: well appearing, no apparent distress, alert Head: normocephalic, atraumatic Eyes: bilateral eye PERRL, bilateral eye EOMI ENT: uvula midline, moist mucus membranes Neck: supple, thyroid normal, supple/symm/no masses Respiratory: lungs clear, no respiratory distress, no retraction, no accessory muscle use Cardiovascular #1: normal peripheral pulses, regular rate, rhythm, no edema, no gallop, no murmur Gastrointestinal: non tender, soft, no guarding, no rebound Musculoskeletal: other - Left trapezius is tight, palpation reproduces complaint Neurologic: alert, oriented x3 Psychiatric: mood/affect normal Skin: no rash, warm/dry Medical Decision Making Diagnostic Impression: Primary Impression: Muscle strain ER Course 88-year-old male presents most likely with a muscle strain will evaluate for ACS , will evaluate for pneumonia Labs negative, EKG negative, chest x-ray negative Will dispo patient home w/ return precautions Laboratory Tests Test 04/19/19 09:50 White Blood Count 9.4 K/UL (4.8-10.8) Red Blood Count 4.55 M/UL (4.70-6.10) L Hemoglobin 12.2 G/DL (14.2-18.0) L Hematocrit 38.9 % (42.0-52.0) L Mean Corpuscular Volume 85 FL (80-99) Mean Corpuscular Hemoglobin 26.8 PG (27.0-31.0) L Mean Corpuscular Hemoglobin Concent 31.3 G/DL (32.0-36.0) L Red Cell Distribution Width 11.8 % (11.6-14.8) Platelet Count 224 K/UL (150-450) Mean Platelet Volume 6.9 FL (6.5-10.1) Neutrophils (%) (Auto) 83.5 % (45.0-75.0) H Lymphocytes (%) (Auto) 9.4 % (20.0-45.0) L Monocytes (%) (Auto) 6.4 % (1.0-10.0) Eosinophils (%) (Auto) 0.3 % (0.0-3.0) Basophils (%) (Auto) 0.4 % (0.0-2.0) Sodium Level 147 MMOL/L (136-145) H Potassium Level 4.0 MMOL/L (3.5-5.1) Chloride Level 109 MMOL/L (98-107) H Carbon Dioxide Level 27 MMOL/L (21-32) Anion Gap 11 mmol/L (5-15) Blood Urea Nitrogen 17 mg/dL (7-18) Creatinine 1.2 MG/DL (0.55-1.30) Estimate Glomerular Filtration Rate mL/min (>60) Glucose Level 100 MG/DL (74-106) Calcium Level 9.4 MG/DL (8.5-10.1) Total Bilirubin 0.4 MG/DL (0.2-1.0) Aspartate Amino Transferase (AST) 15 U/L (15-37) Alanine Aminotransferase (ALT) 17 U/L (12-78) Alkaline Phosphatase 104 U/L (46-116) Troponin I 0.000 ng/mL (0.000-0.056) Total Protein 8.1 G/DL (6.4-8.2) Albumin 4.0 G/DL (3.4-5.0) Globulin 4.1 g/dL Albumin/Globulin Ratio 1.0 (1.0-2.7) EKG Diagnostic Results EKG Time: 09:44 EP Interpretation: Sinus bradycardia, rate 51, QTc 401, no acute ST elevations , normal axis Rhythm Strip Diag. Results Rhythm Strip Time: 09:45 EP Interpretation: yes Rate: 60 Rhythm: NSR, no PVC's, no ectopy Chest X-Ray Diagnostic Results Chest X-Ray Diagnostic Results : Chest X-Ray Ordered: Yes # of Views/Limited/Complete: 1 View Indication: Other - pain EP Interpretation: Yes Interpretation: no consolidation, no effusion, no pneumothorax, no acute cardiopulmonary disease Impression: No acute disease Electronically Signed by: José Miguel Saleh MD Last Vital Signs Date Time Temp Pulse Resp B/P (MAP) Pulse Ox O2 Delivery O2 Flow Rate FiO2 04/19/19 09:28 98.4 53 16 128/71 (90) 97 Room Air Disposition: HOME, SELF-CARE Condition: Stable Scripts Naproxen* (NAPROSYN*) 250 Mg Tablet 250 MG ORAL BID PRN for For Pain, #20 TAB 0 Refills Prov: José Miguel Saleh MD 04/19/19 Lidocaine Patch* (Lidoderm Patch*) 1 Each Adh..patch 1 PATCH TOPIC DAILY, #30 PATCH Patch(es) may remain in place for up to 12 hours in any 24-hour period. Prov: José Miguel Saleh MD 04/19/19 Referrals: NOT CHOSEN IPA/,REFERRING (PCP) [facility] Patient Instructions: Muscle Strain Additional Instructions: The patient was provided with discharge instructions, notified to follow-up with a primary care doctor and or specialist in the next 24-48 hours, and to return to the ED if they have worsening of their symptoms. Please note that this report is being documented using [employer] technology. This can lead to erroneous entry secondary to incorrect interpretation by the dictating instrument. José Miguel Saleh MD Apr 19, 2019 09:46
[2019-04-19 10:17] LABS: BASOPHILS % (AUTO) 0.4 % (0.0-2.0); EOSINOPHILS % (AUTO) 0.3 % (0.0-3.0); HEMATOCRIT 38.9 % (42.0-52.0); HEMOGLOBIN 12.2 G/DL (14.2-18.0); LYMPHOCYTES % (AUTO) 9.4 % (20.0-45.0); MEAN CORPUSCULAR VOLUME 85 FL (80-99); MONOCYTES % (AUTO) 6.4 % (1.0-10.0); NEUTROPHILS % (AUTO) 83.5 % (45.0-75.0); PLATELET COUNT 224 K/UL (150-450); RED BLOOD COUNT 4.55 M/UL (4.70-6.10); RED CELL DISTRIBUTION WIDTH 11.8 % (11.6-14.8); WHITE BLOOD COUNT 9.4 K/UL (4.8-10.8)
[2019-04-19 10:26] LABS: ANION GAP 11 mmol/L (5-15); BLOOD UREA NITROGEN 17 mg/dL (7-18); CALCIUM 9.4 MG/DL (8.5-10.1); CARBON DIOXIDE 27 MMOL/L (21-32); CHLORIDE 109 MMOL/L (98-107); CREATININE 1.2 MG/DL (0.55-1.30); SODIUM 147 MMOL/L (136-145)
[2019-04-19 10:31] LABS: ALANINE AMINOTRANSFERASE 17 U/L (12-78); ALKALINE PHOSPHATASE 104 U/L (46-116); ASPARTATE AMINO TRANSFERASE 15 U/L (15-37); BILIRUBIN,TOTAL 0.4 MG/DL (0.2-1.0)
[2019-04-19] MEDS ORDERED: NAPROXEN250 MG ORAL (10:40)
--- NOTE | 2019-04-19 11:30 | Diagnostic Imaging Report ---
Indication: Chest pain Technique: One view of the chest Comparison: 08/20/2010 Findings: The heart is mildly enlarged. The lungs and pleural spaces are clear. There is no significant interim change Impression: Cardiomegaly No acute process
[2019-04-19 18:38] VITALS: BP 136/50
== END 2019-04-19 11:04 | disposition home or self-care (01) ==
LOC: EMR 09:39
DX: S46.912A Strain of unspecified muscle, fascia and tendon at shoulder and upper arm level, left arm, initial encounter (principal); F03.90 Unspecified dementia, unspecified severity, without behavioral disturbance, psychotic disturbance, mood disturbance, and anxiety; N40.0 Benign prostatic hyperplasia without lower urinary tract symptoms; I10 Essential (primary) hypertension; X58.XXXA Exposure to other specified factors, initial encounter; Y92.9 Unspecified place or not applicable
CPT/HCPCS: 36415; 71045; 80053; 84484; 85025; 93005; 99283

== ENCOUNTER 2019-06-12 09:30 | Inpatient (IN) | payer MEDICARE, OTHER ==
[~2019-06-12] VITALS: Ht 182.9 cm; Wt 85.3 kg
[2019-06-12] VITALS (11 sets, daily range): BP systolic 95–122; BP diastolic 25–78
[~2019-06-12 09:30] MED LIST changes: +LIDODERM700 M1 TOPIC; +NAMENDA5 MG ORAL; +NAPROXEN250 MG ORAL
--- NOTE | 2019-06-12 09:40 | NUR ---
ED Nurse Note: Patient walked into ED from home brought in by her daughter c/o dizziness and pressure like chest pain this morning around 0730. upon arrival to ED, patient denies any more chest pain. patient is alert awake x3, patient placed on a cardiac exercise specialist,hopsital gown.
[2019-06-12] MEDS ORDERED: UNOBMED (09:44)
--- NOTE | 2019-06-12 10:00 | NUR ---
ED Nurse Note: daughter and pt unable to recall the name of meds. will contact rx.
--- NOTE | 2019-06-12 10:07 | Emergency Room Report ---
History of Present Illness General Chief Complaint: Chest Pain Source: Patient, Family Member Present Illness HPI Patient came out from the bathroom this morning complaining about chest pain. He was shaking at that time. He cannot remember the episode very well but he says that the pain was 5/10 and felt like pressure and sharp in the left side of his chest without radiation. He his daughter had him sit down to rest. With resting the pain seemed to improve. He felt weakness and shaky at that time. Patient denies fevers, chills, nausea, vomiting, diarrhea, dysuria or constipation. He has a history of hypertension but has not had problems with his heart in the past. According to Dr. Trevino the patient has had problems with second degree heart block Mobitz 2. He has been stable with this. They have been considering placing of pacemaker. No fevers, chills, sore throat, palpitations, abdominal pain, shortness of breath, joint pain, rashes, depression, anxiety, visual changes, dizziness, headache. Patient has dementia and review of systems is questionable. Patient was admitted November this year with these discharge diagnoses: 1. Cellulitis of the right foot, rule out gout. 2. History of bradycardia. 3. Dementia. 4. Hypertension. Allergies: Coded Allergies: No Known Allergies (Verified Allergy, Mild, 08/21/10) Patient History Limited by: medical condition Past Medical History: see triage record, old chart reviewed Social History: Denies: smoking, alcohol use, drug use Social History Narrative Born in [place] moved to [place] in the 70s with his daughter Reviewed Nursing Documentation: PMH: Agreed; PSxH: Agreed Nursing Documentation-PMH Past Medical History: No History, Except For Hx Cardiac Problems: No Hx Hypertension: Yes Hx Pacemaker: No Hx Asthma: No Hx COPD: No Hx Diabetes: No Hx Cancer: No Hx Gastrointestinal Problems: No Hx Dialysis: No Hx Neurological Problems: Yes - Dementia Hx Cerebrovascular Accident: No Hx Seizures: No Review of Systems All Other Systems: negative except mentioned in HPI - Questionable accuracy Physical Exam Vital Signs Date Time Temp Pulse Resp B/P (MAP) Pulse Ox O2 Delivery O2 Flow Rate FiO2 06/12/19 09:34 98.2 57 18 134/71 (92) 99 Room Air Sp02 EP Interpretation: reviewed, normal General Appearance: well appearing, no apparent distress, other - GCS 14 Head: normocephalic Eyes: bilateral eye PERRL, bilateral eye EOMI, bilateral eye other - Arcus ENT: moist mucus membranes Respiratory: lungs clear, normal breath sounds Cardiovascular #1: no edema, bradycardia Cardiovascular #2: 2+ radial (R) Gastrointestinal: normal inspection, non tender, soft Genitourinary: no CVA tenderness Musculoskeletal: normal range of motion, no calf tenderness Neurologic: alert, informatics specialist III-XII nml as tested, motor strength/tone normal, DTRs symmetric, sensory intact, cerebellar normal, speech normal, oriented - X2 Psychiatric: mood/affect normal, other - Poor recent memory Skin: no rash, warm/dry Medical Decision Making Diagnostic Impression: Primary Impression: Chest pain Qualified Codes: R07.9 - Chest pain, unspecified Additional Impression: Third degree heart block ER Course Presents with left-sided chest pain and shaking. Differential includes acute myocardial infarction, acute coronary syndrome, arrhythmia, gastritis, reflux amongst others. His risk factors of age and hypertension. He will be evaluated EKG, chest x-ray and labs. Patient is placed on a athletic monitor. Aspirin is given. EKG with third-degree heart block. Chest x-ray no infiltrates. CBC and CMP unremarkable. Troponin negative. BNP elevated. Pacing pads placed on patient. Clinically he is stable at rest. He is also pain-free. Patient evaluated by Dr. Trevino in the emergency department. Initially patient admitted to ICU however Dr. Trevino downgraded the patient to stepdown unit. Discussed with patient the need for pacemaker placement. Laboratory Tests Test 06/12/19 09:50 White Blood Count 7.4 K/UL (4.8-10.8) Red Blood Count 4.40 M/UL (4.70-6.10) L Hemoglobin 12.2 G/DL (14.2-18.0) L Hematocrit 36.8 % (42.0-52.0) L Mean Corpuscular Volume 84 FL (80-99) Mean Corpuscular Hemoglobin 27.7 PG (27.0-31.0) Mean Corpuscular Hemoglobin Concent 33.1 G/DL (32.0-36.0) Red Cell Distribution Width 11.6 % (11.6-14.8) Platelet Count 223 K/UL (150-450) Mean Platelet Volume 7.1 FL (6.5-10.1) Neutrophils (%) (Auto) 77.4 % (45.0-75.0) H Lymphocytes (%) (Auto) 13.3 % (20.0-45.0) L Monocytes (%) (Auto) 7.2 % (1.0-10.0) Eosinophils (%) (Auto) 1.2 % (0.0-3.0) Basophils (%) (Auto) 0.9 % (0.0-2.0) Prothrombin Time 10.2 SEC (9.30-11.50) Prothrombin Time INR 1.0 (0.9-1.1) PTT 28 SEC (23-33) Sodium Level 143 MMOL/L (136-145) Potassium Level 3.7 MMOL/L (3.5-5.1) Chloride Level 106 MMOL/L (98-107) Carbon Dioxide Level 29 MMOL/L (21-32) Anion Gap 8 mmol/L (5-15) Blood Urea Nitrogen 14 mg/dL (7-18) Creatinine 1.3 MG/DL (0.55-1.30) Estimate Glomerular Filtration Rate mL/min (>60) Glucose Level 104 MG/DL (74-106) Calcium Level 9.2 MG/DL (8.5-10.1) Total Bilirubin 0.6 MG/DL (0.2-1.0) Aspartate Amino Transferase (AST) 18 U/L (15-37) Alanine Aminotransferase (ALT) 16 U/L (12-78) Alkaline Phosphatase 100 U/L (46-116) Total Creatine Kinase 151 U/L (26-308) Troponin I 0.007 ng/mL (0.000-0.056) Pro-B-Type Natriuretic Peptide 1762 pg/mL (0-125) H Total Protein 7.6 G/DL (6.4-8.2) Albumin 3.7 G/DL (3.4-5.0) Globulin 3.9 g/dL Albumin/Globulin Ratio 0.9 (1.0-2.7) L Lipase 93 U/L (73-393) EKG Diagnostic Results Rate: bradycardiac Rhythm: other - 3rd degree heart block ST Segments: no acute changes Rhythm Strip Diag. Results EP Interpretation: yes Rhythm: NSR, no PVC's, no ectopy Chest X-Ray Diagnostic Results Chest X-Ray Diagnostic Results : Chest X-Ray Ordered: Yes # of Views/Limited/Complete: 1 View Indication: Chest Pain EP Interpretation: Yes Interpretation: no consolidation, no effusion, no pneumothorax Impression: No acute disease Electronically Signed by: Electronically signed by Ravi Willis MD Last Vital Signs Date Time Temp Pulse Resp B/P (MAP) Pulse Ox O2 Delivery O2 Flow Rate FiO2 06/13/19 00:00 98.2 38 20 116/62 (80) 99 38 06/13/19 00:00 Nasal Cannula 2.0 Status: improved Disposition: PLACE IN OBSERVATION Condition: Serious Ravi Willis MD Jun 12, 2019 10:07
[2019-06-12 10:24] LABS: ANION GAP 8 mmol/L (5-15); BLOOD UREA NITROGEN 14 mg/dL (7-18); CALCIUM 9.2 MG/DL (8.5-10.1); CARBON DIOXIDE 29 MMOL/L (21-32); CHLORIDE 106 MMOL/L (98-107); CREATININE 1.3 MG/DL (0.55-1.30); POTASSIUM 3.7 MMOL/L (3.5-5.1); SODIUM 143 MMOL/L (136-145)
[2019-06-12 10:25] LABS: BASOPHILS % (AUTO) 0.9 % (0.0-2.0); EOSINOPHILS % (AUTO) 1.2 % (0.0-3.0); HEMATOCRIT 36.8 % (42.0-52.0); HEMOGLOBIN 12.2 G/DL (14.2-18.0); LYMPHOCYTES % (AUTO) 13.3 % (20.0-45.0); MEAN CORPUSCULAR VOLUME 84 FL (80-99); MONOCYTES % (AUTO) 7.2 % (1.0-10.0); NEUTROPHILS % (AUTO) 77.4 % (45.0-75.0); PLATELET COUNT 223 K/UL (150-450); RED CELL DISTRIBUTION WIDTH 11.6 % (11.6-14.8); WHITE BLOOD COUNT 7.4 K/UL (4.8-10.8)
[2019-06-12 10:35] LABS: ALANINE AMINOTRANSFERASE 16 U/L (12-78); ALBUMIN 3.7 G/DL (3.4-5.0); ALBUMIN/GLOBULIN RATIO 0.9 (1.0-2.7); ALKALINE PHOSPHATASE 100 U/L (46-116); ASPARTATE AMINO TRANSFERASE 18 U/L (15-37); BILIRUBIN,TOTAL 0.6 MG/DL (0.2-1.0); CREATINE KINASE 151 U/L (26-308)
--- NOTE | 2019-06-12 12:00 | NUR ---
ED Nurse Note: notified Dr. Willis that patient reports he is unable to provide urine sample and he wants some fluid to drink, but Dr. Willis said it's ok not to get urine sample at this time, patient may be getting pacemaker.
--- NOTE | 2019-06-12 12:22 | Diagnostic Imaging Report ---
Indication: chest pain Comparison: 04/19/19 A single view chest radiograph was obtained. Findings: No definite infiltrate or pulmonary vascular congestion identified. The heart is enlarged. The aorta is mildly enlarged consistent with atherosclerotic vascular disease. The bones are osteopenic. Impression: No acute disease
--- NOTE | 2019-06-12 12:34 | NUR ---
ED Nurse Note: report given to Fred Kennedy RN, endorsed all plan of care to Fred Kennedy Rn. MRSA VRE/CRE swabs done.
--- NOTE | 2019-06-12 13:35 | NUR ---
ED Nurse Note: patient transferred to ICU with all of his belongings on ACLS protocol
--- NOTE | 2019-06-12 13:49 | NUR ---
NURSE NOTES: Late entry: PT and report received from Nhung ED RN. PT received A/O x 3, VS upon receiving and placed on monitor BP 139/53; HR 52; RR 16; O2 sat 100% on RA, no S/S of respiratory distress noted. PT received with diaper on, no skin issues noted upon full head to toe assessment. PT received with R-AC 20g, flushes well, no S/S of infiltration. No complaints of chest pain upon arrival or dizziness. PT is able to follow commands. Will continue to monitor PT.
[2019-06-12] MEDS: Heparin 5000 units/ml inj SUBQ SCH ×2 (15:21→20:28)
--- NOTE | 2019-06-12 17:32 | NUR ---
NURSE NOTES: PT HR went to 35 when he slept and observed while he is eating his dinner. No difficulty swallowing, advised PT to take time consuming dinner. Will continue to monitor.
--- NOTE | 2019-06-12 18:17 | NUR ---
NURSE NOTES: SONIA Owen left message for MD Uriel to inform of PT HR falling as low as 38, PT remains asymptomatic, no respiratory distress, PT remains A/O x 3. PT ate 100% of his dinner without difficulty swallowing and no coughing noted. PT is in good spirits.
--- NOTE | 2019-06-12 18:24 | NUR ---
NURSE NOTES: MD Uriel made rounds, gave update on PT VS being stable, no respiratory distress during his low HR, ordered to move PT to SDU, "PT has been like this for years, as long as he is asymptomatic, he is okay." Will continue with plan of care.
--- NOTE | 2019-06-12 19:39 | NUR ---
HAND-OFF: Report and PT given to EDWIN Gómez.
--- NOTE | 2019-06-12 19:39 | NUR ---
NURSE NOTES: SBAR received from Almita Amos. Patient is awake, oriented to self and purpose. Patient is rather forgetful at times. Patients current HR is 51 2nd degree AVB asymptomatic, BP is 122/53. Patient is able to void using urinal. skin is intact. Is on NC at 2L and saturating at 100%. Cardiac diet noted. Patient able to verbalize concerns. Safety measures are in place, bed in lowest position and bed alarm is on, call light is within reach. No distress at this time, will continue to monitor.
--- NOTE | 2019-06-12 20:00 | NUR ---
NURSE NOTES: Patient self repositions. HR is SB in the 40s 3rd degree AVB. Patient is asymptomatic. NAD at this time, will continue to monitor.
--- NOTE | 2019-06-12 22:00 | NUR ---
NURSE NOTES: Patient sleeping, HR is 39 3rd AVB. No acute distress at this time. BP is stable, saturating is 100%
--- NOTE | 2019-06-12 23:30 | History and Physical Report ---
DATE OF ADMISSION: 06/12/2019 CHIEF COMPLAINT: Bradycardia. HISTORY: This is a pleasant 88-year-old male, well known to me. He has a history of dementia, hypertensive heart disease, and borderline diabetes . He has a history of dementia with episodes of psychosis. He has a history of sinus bradycardia. He was brought in by family members with complaints of chest pain. The patient is a poor historian. He is unable to provide any history. He was noted to be bradycardic in the emergency room with a stable blood pressure. Because of his significant bradycardia though, he is admitted to the intensive care unit for further evaluation. He denies any fevers or chills. No shortness of breath. No dizziness. PAST MEDICAL HISTORY: As above. PAST SURGICAL HISTORY: None. CURRENT MEDICATIONS: Reconciled and reviewed. ALLERGIES: None. FAMILY HISTORY: None. SOCIAL HISTORY: Negative for tobacco, ethanol, or drugs. REVIEW OF SYSTEMS: GENERAL: No fever or chills. HEENT: No headaches or visual changes. CARDIOPULMONARY: Positive chest pain, but no shortness of breath. GASTROINTESTINAL: No nausea or vomiting. GENITOURINARY: No urgency or frequency. MUSCULOSKELETAL: No joint pain or swelling. No evidence of seizures. PHYSICAL EXAMINATION: VITAL SIGNS: Temperature 98 degrees, pulse 50, respirations 18, and blood pressure was 102/46. GENERAL: The patient is a well-developed male, in no apparent distress. He is awake, alert, and oriented x2. HEENT: His pupils are equal, round, and reactive to light. Oropharynx is clear. NECK: Supple. No carotid bruits. HEART: Regular rate and rhythm, but bradycardic. LUNGS: Clear. ABDOMEN: Soft, nontender, and nondistended. EXTREMITIES: Without clubbing, cyanosis, or edema. LABORATORY DATA: Labs showed a white count of 7, hemoglobin 12, hematocrit 36, and platelets of 223,000. Coags are normal. Sodium 143, potassium is 3.7, creatinine is 1.3. Troponin 0.007. Natriuretic peptide level was 1700. EKG showed sinus bradycardia. ASSESSMENT: This is a pleasant male with a history of hypertensive heart disease, history of sinus bradycardia, dementia, psychosis, and borderline diabetes admitted with complaints of severe bradycardia. PLAN: 1. Admit to intensive care unit. 2. Atropine as needed for symptomatic bradycardia. 3. Cardiology consultation. 4. EP consultation has been obtained. 5. We will repeat the patient's troponin. 6. Monitor electrolytes closely. 7. Discussed with family members. 8. Possible pacemaker placement. Xander Fofana M.D. DR: TERESA JOB#: [id number] CC:
--- NOTE | 2019-06-12 23:38 | NUR ---
NURSE NOTES: Received pt from EDWIN Escalante. Pt gabrielle, vss, with no sign of distress. Pt in bed resting, bed at its lowest position, bed alarm on, x3 bed rails up and call light in reach. Lab values and skin issues noted. Pt on equipment monitor phototypesetting. Addendum: 06/13/19 at 0026 by Tay Robb RN NURSE NOTES: Received patient from EDWIN Gómez
[2019-06-13] VITALS (24 sets, daily range): BP systolic 104–147; BP diastolic 32–62
--- NOTE | 2019-06-13 | NUR ---
NURSE NOTES: Late entry: Pt resting well. No sign of acute distress and no need to void. Will monitor patient.
--- NOTE | 2019-06-13 01:42 | NUR ---
NURSE NOTES: Pt resting with no acute distress. Will continue to monitor.
--- NOTE | 2019-06-13 02:05 | NUR ---
NURSE NOTES: Pt in bed awake with no signs of acute distress. Pt is cooperative and smiling. Pt is now resting and will continue to monitor.
--- NOTE | 2019-06-13 03:04 | NUR ---
NURSE NOTES: Pt cleaned with no issue. Pt awake and cooperative.
--- NOTE | 2019-06-13 04:15 | NUR ---
NURSE NOTES: Late entry: Pt is awake with no acute distress. Pt in bed denies any pain.
--- NOTE | 2019-06-13 05:21 | NUR ---
NURSE NOTES: Pt is resting well and is cooperative with care. No acute distress.
--- NOTE | 2019-06-13 06:10 | NUR ---
NURSE NOTES: Pt is AAOX3 (person, place, reason), cooperative and awake. Pt is in bed with no signs of distress. Pt is on 2L NC bed at its lowest position, x3 bed rails up, and call light in reach. Pt forgets to use call light when he needs to use the bathroom. Will continue to monitor.
--- NOTE | 2019-06-13 07:15 | NUR ---
NURSE NOTES: Received pt from Tootie Robb RN. Patient is awake, A/Ox3 but confused at times. Pleasant mood. 2nd degree AVB; HR 34; asymptomatic. BP stable. Denies dizziness/CP. Afebrile. RAC 20G patent and asymptomatic. Pt uses urinal. No signs of distress noted. Bed locked, alarmed and in lowest position. Will continue to care of plan.
--- NOTE | 2019-06-13 07:16 | NUR ---
HAND-OFF: Report given to EDWIN Martines.
--- NOTE | 2019-06-13 07:47 | General Progress Note ---
Assessment/Plan Problem List: (1) Hypertension ICD Codes: I10 - Essential (primary) hypertension SNOMED: 56962957 (2) Third degree heart block ICD Codes: I44.2 - Atrioventricular block, complete SNOMED: 72961705 Status: stable Assessment/Plan: tele cards/ep eval possible pacemaker Subjective ROS Limited/Unobtainable: No Constitutional: Reports: malaise, weakness HEENT: Reports: no symptoms Cardiovascular: Reports: no symptoms Respiratory: Reports: no symptoms Gastrointestinal/Abdominal: Reports: no symptoms Genitourinary: Reports: no symptoms Neurologic/Psychiatric: Reports: no symptoms Endocrine: Reports: no symptoms Hematologic/Lymphatic: Reports: no symptoms Allergies: Coded Allergies: No Known Allergies (Verified Allergy, Mild, 08/21/10) All Systems: reviewed and negative except above Subjective georgette in the 30s. no cp/sob/dizziness. Objective Last 24 Hour Vital Signs Date Time Temp Pulse Resp B/P (MAP) Pulse Ox O2 Delivery O2 Flow Rate FiO2 06/13/19 06:53 97.8 38 14 109/40 (63) 100 38 06/13/19 06:00 31 13 111/43 (65) 100 31 06/13/19 05:00 46 13 115/32 (59) 99 46 06/13/19 04:00 97.5 32 21 113/44 (67) 100 32 06/13/19 04:00 Nasal Cannula 2.0 06/13/19 04:00 2.0 06/13/19 04:00 32 06/13/19 03:00 46 16 106/46 (66) 99 46 06/13/19 02:00 98.3 55 20 110/45 (66) 99 55 06/13/19 01:00 42 19 109/41 (63) 100 42 06/13/19 00:00 98.2 38 20 116/62 (80) 99 38 06/13/19 00:00 Nasal Cannula 2.0 06/12/19 23:00 98.2 44 22 102/70 (81) 100 44 06/12/19 22:00 40 14 106/25 (52) 100 40 06/12/19 21:00 42 20 97/52 (67) 100 51 06/12/19 20:00 98.1 45 18 99/51 (67) 100 51 06/12/19 20:00 2.0 06/12/19 20:00 50 06/12/19 20:00 Nasal Cannula 2.0 06/12/19 19:00 51 16 122/53 (76) 100 51 06/12/19 18:00 98.4 51 18 116/78 (91) 100 51 06/12/19 17:00 64 20 102/46 (64) 100 64 06/12/19 16:00 Nasal Cannula 2.0 06/12/19 16:00 2.0 06/12/19 16:00 51 15 116/53 (74) 100 51 06/12/19 16:00 53 06/12/19 15:00 98.5 55 13 95/51 (66) 100 55 06/12/19 14:47 Nasal Cannula 2.0 06/12/19 13:35 98.1 50 17 111/54 100 Room Air 06/12/19 12:42 98.1 50 17 111/54 100 Room Air 06/12/19 10:23 52 20 Room Air 06/12/19 10:14 98.2 52 20 117/50 100 Room Air 06/12/19 09:34 98.2 57 18 134/71 (92) 99 Room Air Intake and Output 06/12/19 06/13/19 18:59 06:59 Output Total 250 ml 800 ml Balance -250 ml -800 ml Output Urine Total 250 ml 800 ml # Voids 1 3 # Bowel Movements 1 Laboratory Tests 06/12/19 09:50: White Blood Count 7.4, Red Blood Count 4.40L, Hemoglobin 12.2L, Hematocrit 36.8L , Mean Corpuscular Volume 84, Mean Corpuscular Hemoglobin 27.7, Mean Corpuscular Hemoglobin Concent 33.1, Red Cell Distribution Width 11.6, Platelet Count 223, Mean Platelet Volume 7.1, Neutrophils (%) (Auto) 77.4H, Lymphocytes ( %) (Auto) 13.3L, Monocytes (%) (Auto) 7.2, Eosinophils (%) (Auto) 1.2, Basophils (%) (Auto) 0.9, Prothrombin Time 10.2, Prothromb Time International Ratio 1.0, Activated Partial Thromboplast Time 28, Sodium Level 143, Potassium Level 3.7, Chloride Level 106, Carbon Dioxide Level 29, Anion Gap 8, Blood Urea Nitrogen 14, Creatinine 1.3, Estimat Glomerular Filtration Rate , Glucose Level 104, Calcium Level 9.2, Total Bilirubin 0.6, Aspartate Amino Transf (AST/SGOT) 18, Alanine Aminotransferase (ALT/SGPT) 16, Alkaline Phosphatase 100, Total Creatine Kinase 151, Troponin I 0.007, Pro-B-Type Natriuretic Peptide 1762H, Total Protein 7.6, Albumin 3.7, Globulin 3.9, Albumin/Globulin Ratio 0.9L, Lipase 93 Height (Feet): 6 Height (Inches): 1.00 Weight (Pounds): 180 General Appearance: WD/WN, alert Neck: supple Cardiovascular: regular rhythm, bradycardia Respiratory/Chest: chest wall non-tender, lungs clear, normal breath sounds Abdomen: normal bowel sounds, non tender, soft, no organomegaly Neurologic: cook enchilada II-XII grossly normal, alert, oriented x 3 Xander Fofana MD Jun 13, 2019 07:47
--- NOTE | 2019-06-13 08:30 | Consultation ---
DATE OF CONSULTATION: 06/12/2019 CARDIOLOGY CONSULTATION CONSULTING PHYSICIAN: Ravi Trevino M.D. REQUESTING PHYSICIAN: Xander Fofana M.D. REASON: Advanced heart block with bradycardia history. Known to me from many years of cardiovascular care. HISTORY OF PRESENT ILLNESS: This 88-year-old male has a longstanding history of hypertensive heart disease with sinus node dysfunction. He has had a progressive sinus bradycardia, all was asymptomatic for a number of years. He has had adequate chronotropic competence on stress testing up until more recently, however, his arthritis has limited his mobility on the treadmill. The patient came to the emergency room complaining of some chest discomfort and was noted to have bradycardia. I reviewed his EKG, initially described as third-degree heart block, appears to be more of a sinus rhythm with second-degree AV block type 1 (Wenckebach and right bundle-branch block as well). The patient denies dizziness or loss of consciousness, but has been weak. PAST MEDICAL HISTORY: Prostatic hypertrophy, hypertensive heart disease, type 2 diabetes mellitus, cerebrovascular disease with dementia, osteoarthritis, degenerative disk disease. ALLERGIES: None. FAMILY HISTORY: Noncontributory. SOCIAL HISTORY: Negative for smoking, alcohol, or substance abuse. He is a . MEDICATIONS: Prior to admission, reviewed and reconciled. REVIEW OF SYSTEMS: He is hard of hearing. No loss of vision. There is no history of abnormal blood clotting. His most recent echocardiogram revealed normal ejection fraction with concentric hypertrophy and mild degenerative valve disease. There is no change in bowel habits. There is no history of prostate cancer. There is no history of seizure or stroke. He does have advancing dementia. His diabetes is managed with diet and he has been on anti-lipid therapy in the past. PHYSICAL EXAMINATION: VITAL SIGNS: Blood pressure 102/46, pulse 50, respirations 18, and afebrile. NECK: Supple. LUNGS: Clear. CARDIAC: Regular, slow rate. Normal S1, S2. ABDOMEN: Soft. EXTREMITIES: No edema LABORATORY DATA: Labs noted. 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 PLAN: 1. Recommend cardiac monitoring. 2. Medications reviewed. He is not on any therapies that can potentiate these conduction system abnormalities. 3. Titrate antihypertensives with agents that did not have any negative chronotropic potential. The patient is a fall risk due to his advanced conduction system abnormalities and should be considered for a permanent pacemaker implant at this time. Ravi Trevino M.D. DR: CALEB JOB#: [id number] CC:
[2019-06-13] MEDS ORDERED: ARIPiprazole 10mg tab ORAL SCH (09:00)
[2019-06-13] MEDS: Heparin 5000 units/ml inj SUBQ SCH ×2 (09:00→20:57)
[2019-06-13] MEDS ORDERED: Memantine 10mg tab ORAL SCH (09:00)
[2019-06-13] MEDS ORDERED: Aspirin EC 81mg tab ORAL SCH (09:00)
--- NOTE | 2019-06-13 09:00 | NUR ---
NURSE NOTES: Per Dr. Mcfarlane, keep patient NPO and STAT ECG.
[2019-06-13 10:14] LABS: BASOPHILS % (AUTO) 0.4 % (0.0-2.0); EOSINOPHILS % (AUTO) 2.3 % (0.0-3.0); HEMATOCRIT 34.9 % (42.0-52.0); HEMOGLOBIN 11.2 G/DL (14.2-18.0); LYMPHOCYTES % (AUTO) 23.2 % (20.0-45.0); MEAN CORPUSCULAR VOLUME 85 FL (80-99); MONOCYTES % (AUTO) 7.3 % (1.0-10.0); NEUTROPHILS % (AUTO) 66.7 % (45.0-75.0); PLATELET COUNT 211 K/UL (150-450); RED CELL DISTRIBUTION WIDTH 12.2 % (11.6-14.8); WHITE BLOOD COUNT 6.3 K/UL (4.8-10.8)
[2019-06-13 10:39] LABS: ALANINE AMINOTRANSFERASE 22 U/L (12-78); ALBUMIN 3.1 G/DL (3.4-5.0); ALBUMIN/GLOBULIN RATIO 0.9 (1.0-2.7); ALKALINE PHOSPHATASE 87 U/L (46-116); ANION GAP 10 mmol/L (5-15); ASPARTATE AMINO TRANSFERASE 34 U/L (15-37); BILIRUBIN,TOTAL 0.5 MG/DL (0.2-1.0); BLOOD UREA NITROGEN 20 mg/dL (7-18); CALCIUM 8.8 MG/DL (8.5-10.1); CARBON DIOXIDE 27 MMOL/L (21-32); CHLORIDE 109 MMOL/L (98-107); SODIUM 146 MMOL/L (136-145)
--- NOTE | 2019-06-13 11:35 | NUR ---
NURSE NOTES: Patient scheduled to have Permanent pacemaker tomorrow by Dr. Mcfarlane. Telephone consent obtained by daughter: Sandie Robert. RN witness by EDWIN Noble.
--- NOTE | 2019-06-13 11:38 | Cardiac Electrophysiology PN ---
Subjective Subjective [id number] Objective Last 24 Hour Vital Signs Date Time Temp Pulse Resp B/P (MAP) Pulse Ox O2 Delivery O2 Flow Rate FiO2 06/13/19 10:00 31 15 118/43 (68) 100 31 06/13/19 09:00 34 15 113/43 (66) 100 31 06/13/19 08:00 34 06/13/19 08:00 34 15 120/47 (71) 100 31 06/13/19 08:00 2.0 06/13/19 08:00 Nasal Cannula 2.0 06/13/19 06:53 97.8 38 14 109/40 (63) 100 38 06/13/19 06:00 31 13 111/43 (65) 100 31 06/13/19 05:00 46 13 115/32 (59) 99 46 06/13/19 04:00 97.5 32 21 113/44 (67) 100 32 06/13/19 04:00 Nasal Cannula 2.0 06/13/19 04:00 2.0 06/13/19 04:00 32 06/13/19 03:00 46 16 106/46 (66) 99 46 06/13/19 02:00 98.3 55 20 110/45 (66) 99 55 06/13/19 01:00 42 19 109/41 (63) 100 42 06/13/19 00:00 98.2 38 20 116/62 (80) 99 38 06/13/19 00:00 Nasal Cannula 2.0 06/12/19 23:00 98.2 44 22 102/70 (81) 100 44 06/12/19 22:00 40 14 106/25 (52) 100 40 06/12/19 21:00 42 20 97/52 (67) 100 51 06/12/19 20:00 98.1 45 18 99/51 (67) 100 51 06/12/19 20:00 2.0 06/12/19 20:00 50 06/12/19 20:00 Nasal Cannula 2.0 06/12/19 19:00 51 16 122/53 (76) 100 51 06/12/19 18:00 98.4 51 18 116/78 (91) 100 51 06/12/19 17:00 64 20 102/46 (64) 100 64 06/12/19 16:00 Nasal Cannula 2.0 06/12/19 16:00 2.0 06/12/19 16:00 51 15 116/53 (74) 100 51 06/12/19 16:00 53 06/12/19 15:00 98.5 55 13 95/51 (66) 100 55 06/12/19 14:47 Nasal Cannula 2.0 06/12/19 13:35 98.1 50 17 111/54 100 Room Air 06/12/19 12:42 98.1 50 17 111/54 100 Room Air Intake and Output 06/12/19 06/13/19 19:00 07:00 Output Total 550 ml 500 ml Balance -550 ml -500 ml Output Urine Total 550 ml 500 ml # Voids 2 2 # Bowel Movements 1 Laboratory Tests Test 06/13/19 10:05 White Blood Count 6.3 K/UL (4.8-10.8) Red Blood Count 4.10 M/UL (4.70-6.10) L Hemoglobin 11.2 G/DL (14.2-18.0) L Hematocrit 34.9 % (42.0-52.0) L Mean Corpuscular Volume 85 FL (80-99) Mean Corpuscular Hemoglobin 27.4 PG (27.0-31.0) Mean Corpuscular Hemoglobin Concent 32.1 G/DL (32.0-36.0) Red Cell Distribution Width 12.2 % (11.6-14.8) Platelet Count 211 K/UL (150-450) Mean Platelet Volume 7.7 FL (6.5-10.1) Neutrophils (%) (Auto) 66.7 % (45.0-75.0) Lymphocytes (%) (Auto) 23.2 % (20.0-45.0) Monocytes (%) (Auto) 7.3 % (1.0-10.0) Eosinophils (%) (Auto) 2.3 % (0.0-3.0) Basophils (%) (Auto) 0.4 % (0.0-2.0) Sodium Level 146 MMOL/L (136-145) H Potassium Level 5.0 MMOL/L (3.5-5.1) Chloride Level 109 MMOL/L (98-107) H Carbon Dioxide Level 27 MMOL/L (21-32) Anion Gap 10 mmol/L (5-15) Blood Urea Nitrogen 20 mg/dL (7-18) H Creatinine 1.0 MG/DL (0.55-1.30) Estimat Glomerular Filtration Rate mL/min (>60) Glucose Level 104 MG/DL (74-106) Calcium Level 8.8 MG/DL (8.5-10.1) Total Bilirubin 0.5 MG/DL (0.2-1.0) Aspartate Amino Transf (AST/SGOT) 34 U/L (15-37) Alanine Aminotransferase (ALT/SGPT) 22 U/L (12-78) Alkaline Phosphatase 87 U/L (46-116) Troponin I 0.000 ng/mL (0.000-0.056) Total Protein 6.5 G/DL (6.4-8.2) Albumin 3.1 G/DL (3.4-5.0) L Globulin 3.4 g/dL Albumin/Globulin Ratio 0.9 (1.0-2.7) L Microbiology Date/Time Source Procedure Growth Status 06/12/19 10:30 Rectum Received Scottie Mcfarlane MD Jun 13, 2019 11:38
--- NOTE | 2019-06-13 13:05 | NUR ---
NURSE NOTES: Patient tolerating lunch meal well, no signs of aspiration. Daughter is at bedside, updated care of plan. Pt has no signs of distress, denies dizziness or CP. In good spirits.
--- NOTE | 2019-06-13 13:22 | NUR ---
CASE MANAGEMENT:REVIEW 88 YR OLD MALE FROM HOME TO ER CC: DIZZINESS AND CHEST PRESSURE SI: CHEST PAIN. 3RD DEGREE HEART BLOCK 98.3 52 18 134/71 99% ON RA EKG(+) 3RD DEGREE HEART BLOCK IS: ASA PO CHEST XRAY : TO STEP DOWN UNIT (IN ICU) PLAN: PACEMAKER TOMORROW @ 1400 INTERQUAL CRITERIA MET
--- NOTE | 2019-06-13 14:41 | Anethesia Preoperative Eval ---
Anesthesia Pre-op PMH/ROS General Date of Evaluation: Jun 13, 2019 Time of Evaluation: 14:36 Anesthesiologist: Amanda ASA Score: ASA 3 Mallampati Score Class I : Soft palate, uvula, fauces, pillars visible Class II: Soft palate, uvula, fauces visible Class III: Soft palate, base of uvula visible Class IV: Only hard plate visible Mallampati Classification: Class III Surgeon: Timothy Diagnosis: 3-rd degree heart block Surgical Procedure: Pacemaker placement Anesthesia History: none Family History: no anesthesia problems Allergies: Coded Allergies: No Known Allergies (Verified Allergy, Mild, 08/21/10) Medications: see eMAR Patient NPO?: Yes Past Medical History Cardiovascular: Reports: HTN; Denies: CAD, NM, valve dz, arrhythmia, other Pulmonary: Denies: asthma, COPD, FRANNY, other Gastrointestinal/Genitourinary: Reports: GERD, CRI; Denies: ESRD, other Neurologic/Psychiatric: Reports: dementia, depression/anxiety; Denies: CVA, TIA, other Endocrine: Reports: DM - borderline HEENT: Denies: cataract (L), cataract (R), glaucoma, EKUK (L), EKUK (R), other Hematology/Immune: Denies: anemia, DVT, bleeding disorder, other Musculoskeletal/Integumentary: Reports: OA; Denies: RA, DJD, DDD, edema, other PMH Narrative: as above PSxH Narrative: None Anesthesia Pre-op Phys. Exam Physician Exam Last Vital Signs Date Time Temp Pulse Resp B/P (MAP) Pulse Ox O2 Delivery O2 Flow Rate FiO2 06/13/19 14:00 35 16 119/46 (70) 100 06/13/19 12:00 2.0 06/13/19 12:00 Nasal Cannula 06/13/19 06:53 97.8 Constitutional: NAD Neurologic: other - unable to obtaine Cardiovascular: RRR Respiratory: CTA Gastrointestinal: S/NT/ND Airway Exam Mallampati Score: Class III MO: limited Neck: stiff ROM: limited Teeth: missing Dentures: no upper, no lower Anesthesia Pre-op A/P Labs Hematology Test 06/13/19 10:05 White Blood Count 6.3 K/UL (4.8-10.8) Red Blood Count 4.10 M/UL (4.70-6.10) L Hemoglobin 11.2 G/DL (14.2-18.0) L Hematocrit 34.9 % (42.0-52.0) L Mean Corpuscular Volume 85 FL (80-99) Mean Corpuscular Hemoglobin 27.4 PG (27.0-31.0) Mean Corpuscular Hemoglobin Concent 32.1 G/DL (32.0-36.0) Red Cell Distribution Width 12.2 % (11.6-14.8) Platelet Count 211 K/UL (150-450) Mean Platelet Volume 7.7 FL (6.5-10.1) Neutrophils (%) (Auto) 66.7 % (45.0-75.0) Lymphocytes (%) (Auto) 23.2 % (20.0-45.0) Monocytes (%) (Auto) 7.3 % (1.0-10.0) Eosinophils (%) (Auto) 2.3 % (0.0-3.0) Basophils (%) (Auto) 0.4 % (0.0-2.0) Chemistry Test 06/13/19 10:05 Sodium Level 146 MMOL/L (136-145) H Potassium Level 5.0 MMOL/L (3.5-5.1) Chloride Level 109 MMOL/L (98-107) H Carbon Dioxide Level 27 MMOL/L (21-32) Anion Gap 10 mmol/L (5-15) Blood Urea Nitrogen 20 mg/dL (7-18) H Creatinine 1.0 MG/DL (0.55-1.30) Estimat Glomerular Filtration Rate mL/min (>60) Glucose Level 104 MG/DL (74-106) Calcium Level 8.8 MG/DL (8.5-10.1) Total Bilirubin 0.5 MG/DL (0.2-1.0) Aspartate Amino Transf (AST/SGOT) 34 U/L (15-37) Alanine Aminotransferase (ALT/SGPT) 22 U/L (12-78) Alkaline Phosphatase 87 U/L (46-116) Troponin I 0.000 ng/mL (0.000-0.056) Total Protein 6.5 G/DL (6.4-8.2) Albumin 3.1 G/DL (3.4-5.0) L Globulin 3.4 g/dL Albumin/Globulin Ratio 0.9 (1.0-2.7) L Risk Assessment & Plan Assessment: ASA 3 Plan: MAC Status Change Before Surgery: No Pre-Antibiotics Drug: as scheduled Dale Patel MD Jun 13, 2019 14:41
--- NOTE | 2019-06-13 15:19 | NUR ---
NURSE NOTES: Patient asleep, no signs of distress. 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
--- NOTE | 2019-06-13 16:50 | Cardiology Report ---
APPROVED REPORT EKG Measurement Heart [id number] probable sinus rhythm, consider repeat ekg RSR' or QR pattern in V1 suggests right ventricular conduction delay Nonspecific T wave abnormality Abnormal ECG
--- NOTE | 2019-06-13 17:41 | NUR ---
NURSE NOTES: Pt had an episode of confusion, stated "I need to put my pants on and go home". Reoriented patient. Tolerating dinner meal well. Oral care done.
--- NOTE | 2019-06-13 19:15 | Consultation ---
DATE OF CONSULTATION: 06/13/2019 CARDIAC ELECTROPHYSIOLOGY CONSULTATION CONSULTING PHYSICIAN: Scottie Mcfarlane M.D. REFERRING PHYSICIAN: Ravi Trevino M.D. REASON FOR CONSULTATION: Placement of permanent pacemaker. HISTORY OF PRESENT ILLNESS: The patient is an 88-year-old gentleman with history of hypertension, borderline diabetes and dementia with a long history of sinus bradycardia. The patient was brought in by family members for chest pain. In the emergency room, the patient was found to be bradycardic, but blood pressure was stable. The patient was in and out of sinus rhythm with first-degree AV block, Mobitz II as well as intermittent complete heart block. The heart rate was dropping as low as 20s. However, the patient denies any symptoms and the blood pressure was stable. Per family member, the patient also had a fall in the bathtub. REVIEW OF SYSTEMS: Negative other than what was mentioned in the history of present illness. PAST MEDICAL HISTORY: As mentioned above. FAMILY HISTORY: Noncontributory. SOCIAL HISTORY: He lives at home. Does not smoke or drink alcohol. PHYSICAL EXAMINATION: VITAL SIGNS: Show blood pressure 118/43, pulse is 31, respirations 18, and he is afebrile. HEAD AND NECK: Shows no JVD or carotid bruits. LUNGS: Clear. CARDIOVASCULAR: Shows bradycardic, S1 and S2 with no gallop or murmur. ABDOMEN: Soft. EXTREMITIES: No pitting edema. LABORATORY AND DIAGNOSTIC DATA: His 12-lead EKG from today showed sinus rhythm with complete heart block and junctional escape of 30. Prior EKG also showed incomplete heart block with junctional rhythm, right bundle-branch block morphology. His labs show white count of 6.2, hemoglobin 11.2, hematocrit 35, and platelet count 211,000. Sodium 142, potassium 5.0, BUN 20, and creatinine 1. Troponins are negative. BNP 1762. ASSESSMENT AND PLAN: 1. Intermittent complete heart block and bradycardia with heart rate down to the 20s, and the patient off any sinus or AV emilie blocking agents. Per family member, the patient had a fall in the bathtub, likely due to the patient's profound bradycardia. indicated for permanent pacemaker implantation. Discussed the case with Dr. Trevino as well as ICU nurse. We will schedule the patient for permanent pacemaker implantation. 2. Atypical chest pain. The patient is already ruled out for myocardial infarction with serial cardiac enzymes with evaluation by Dr. Trevino. 3. History of dementia. Thank you very much for allowing me to participate in the care of this patient. Please do not hesitate to contact me for any questions regarding my evaluation. Scottie Mcfarlane M.D. DR: YANCY JOB#: [id number] CC:
--- NOTE | 2019-06-13 19:24 | NUR ---
HAND-OFF: Report given to Tootie Robb RN. Patient remains asymptomatic. No signs of distress. Frequent re-orentation provided.
--- NOTE | 2019-06-13 19:25 | NUR ---
NURSE NOTES: Received pt from EDWIN Martines. Pt awake, smiling while talking, and watching TV. No sign of distress. VSS, pt took NC off and is saturating at 98%. 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
--- NOTE | 2019-06-13 20:00 | NUR ---
NURSE NOTES: Pt attempted to leave and was looking for his jeans. Reoriented pt to time purpose and place. Pt is smiling and cooperative. Educated pt on use of call light.
--- NOTE | 2019-06-13 21:00 | NUR ---
NURSE NOTES: Pt attempted to use the bathroom and was looking for his jeans. Assisted pt to use the urinal. Reoriented pt to time purpose and place. Pt is very cheerful and cooperative. Educated pt on use of call light and why he is NPO at midnight.
--- NOTE | 2019-06-13 22:30 | NUR ---
NURSE NOTES: Pt attempted to get out of bed without assistance. Pt was reoriented to where he was and why he was here. Pt happily cooperated and told me he understood. Will continue to monitor.
--- NOTE | 2019-06-13 23:08 | NUR ---
NURSE NOTES: Pt in bed watching TV. Pt reoriented to room and how to use the call light.
[2019-06-14] VITALS (15 sets, daily range): BP systolic 114–179; BP diastolic 43–92
--- NOTE | 2019-06-14 01:00 | NUR ---
NURSE NOTES: Pt in bed resting well. No acute distress.
--- NOTE | 2019-06-14 01:30 | Progress Note ---
CARDIOLOGY PROGRESS NOTE SUBJECTIVE: The patient is in the intensive care unit. He offers no specific complaints. at night is worse. He has had bradycardic episodes with complete heart block in the high 20s during sleep. 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 No hypotension noted. OBJECTIVE: VITAL SIGNS: Blood pressure 130/50, pulse 35, and respirations 16. LUNGS: Clear. CARDIAC: Regular. Slow rate. Normal S1, S2. ABDOMEN: Soft. EXTREMITIES: No edema. LABORATORY DATA: Sodium 136, potassium 5, bicarb 27, BUN 20, and creatinine 1. Troponin is negative. IMPRESSION: 1. 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 2. Hypertensive heart disease. 3. Cerebrovascular disease. 4. Dehydration. 5. Hypernatremia. PLAN: 1. Hypotonic IV fluids. 2. Permanent pacemaker implant. 3. Continue current cardiovascular regimen. 4. Repeat thyroid panel to confirm outpatient results that were reportedly normal. 5. Continue cardiac monitoring in intensive care unit care pending pacemaker implant. Ravi Trevino M.D. DR: VIOLETA JOB#: [id number] CC:
--- NOTE | 2019-06-14 01:59 | NUR ---
NURSE NOTES: Pt in bad with no acute distress. Pt is resting well.
--- NOTE | 2019-06-14 03:36 | NUR ---
NURSE NOTES: Pt tried to get out of bed without calling. Pt IV was almost remove by pt. Reoriented pt to current hosptol stay and reason why he is here. Educated pt on bathroom safety and proper IV care. Pt cooperative and stated he understood. Pt assisted in bed bath and completed oral care independently.
--- NOTE | 2019-06-14 04:03 | NUR ---
NURSE NOTES: Reoriented pt to why he is here and why he cannot leave yet. Pt cooperative. Assisted pt with void. Pt in bed resting with no complaints.
[2019-06-14 05:19] LABS: ALANINE AMINOTRANSFERASE 20 U/L (12-78); ALBUMIN 2.9 G/DL (3.4-5.0); ALBUMIN/GLOBULIN RATIO 0.8 (1.0-2.7); ALKALINE PHOSPHATASE 83 U/L (46-116); ANION GAP 5 mmol/L (5-15); ASPARTATE AMINO TRANSFERASE 20 U/L (15-37); BILIRUBIN,TOTAL 0.3 MG/DL (0.2-1.0); BLOOD UREA NITROGEN 19 mg/dL (7-18); CALCIUM 8.6 MG/DL (8.5-10.1); CARBON DIOXIDE 28 MMOL/L (21-32); CHLORIDE 107 MMOL/L (98-107); CREATININE 1.2 MG/DL (0.55-1.30); SODIUM 140 MMOL/L (136-145)
--- NOTE | 2019-06-14 05:32 | NUR ---
NURSE NOTES: Report given to EDWIN Billy in SDU. Transfer pending.
--- NOTE | 2019-06-14 05:50 | NUR ---
NURSE NOTES: Pt report and pt has been received from Jung PINEDA. pt remains stable. pt is alert and oriented times 3 and able to follow commands. pt has a cardica monitor attached showing SB, MD Aguirre is aware, pt asymptomatic at this time. pt is on 2L NC able to sat up to 100%, no distress noted. pt bed is low, locked, armed, call light within reach, bed rails up times 3, belongings by bed side. will follow plan of care.
--- NOTE | 2019-06-14 05:57 | NUR ---
TRANSFER TO FLOOR: Patient transferred to SDU, per MD Urile. Report given to EDWIN Billy. Belongings and medications given to Patient. Family informed of transfer.
--- NOTE | 2019-06-14 06:54 | NUR ---
HAND-OFF: Report given to Dot WHYTE. pt remains stable.
--- NOTE | 2019-06-14 06:55 | NUR ---
NURSE NOTES: Received report from Wenceslao Antoine RN. Observed patient in bed, awake, confused, trying to get out of bed. On room air, no respiratory distress noted. Currently NPO as ordered. IV on right Ac intact and patent with IV fluids running at prescribed rate. Safety precautions in place, bed locked, alarmed, and in lowest position, call light left within reach. Pt placed in room close to nurse's station. Instructed and reoriented patient, will continue to monitor.
--- NOTE | 2019-06-14 08:23 | NUR ---
NURSE NOTES: Dr Fofana at bedside, spoke with patient's daughter Sandie over the phone to verify consent for pacemaker.
--- NOTE | 2019-06-14 08:44 | General Progress Note ---
Assessment/Plan Problem List: (1) Hypertension ICD Codes: I10 - Essential (primary) hypertension SNOMED: 87819399 (2) Third degree heart block ICD Codes: I44.2 - Atrioventricular block, complete SNOMED: 30814288 Status: stable Assessment/Plan: pacemaker today d/w dtr. Subjective ROS Limited/Unobtainable: No Constitutional: Reports: weakness HEENT: Reports: no symptoms Cardiovascular: Reports: lightheadedness Respiratory: Reports: no symptoms Gastrointestinal/Abdominal: Reports: no symptoms Genitourinary: Reports: no symptoms Neurologic/Psychiatric: Reports: no symptoms Endocrine: Reports: no symptoms Hematologic/Lymphatic: Reports: no symptoms Allergies: Coded Allergies: No Known Allergies (Verified Allergy, Mild, 08/21/10) All Systems: reviewed and negative except above Subjective georgette in the 30s. no cp/sob/dizziness. npo for pacer Objective Last 24 Hour Vital Signs Date Time Temp Pulse Resp B/P (MAP) Pulse Ox O2 Delivery O2 Flow Rate FiO2 06/14/19 08:00 2.0 06/14/19 08:00 97.9 38 19 138/92 (107) 98 06/14/19 05:00 97.8 36 19 137/55 (82) 100 06/14/19 04:00 36 06/14/19 04:00 Nasal Cannula 2.0 06/14/19 04:00 40 06/14/19 04:00 2.0 06/14/19 04:00 30 16 135/55 (81) 97 06/14/19 03:00 38 19 116/43 (67) 97 06/14/19 02:00 97.6 37 21 121/50 (73) 99 06/14/19 01:00 39 19 114/47 (69) 100 06/14/19 00:00 34 20 124/45 (71) 100 06/14/19 00:00 36 06/14/19 00:00 Nasal Cannula 2.0 06/14/19 00:00 2.0 06/13/19 23:00 97.8 34 24 112/52 (72) 100 06/13/19 22:00 40 14 130/48 (75) 100 06/13/19 21:00 40 13 114/43 (66) 100 06/13/19 20:00 40 06/13/19 20:00 Nasal Cannula 2.0 06/13/19 20:00 2.0 06/13/19 20:00 97.6 40 18 147/47 (80) 100 06/13/19 19:00 34 16 119/44 (69) 100 06/13/19 18:00 35 16 130/48 (75) 100 06/13/19 17:00 42 16 120/40 (66) 100 06/13/19 16:00 2.0 06/13/19 16:00 35 06/13/19 16:00 Nasal Cannula 2.0 06/13/19 16:00 98.9 61 16 132/45 (74) 100 06/13/19 15:00 33 16 104/40 (61) 100 06/13/19 14:00 35 16 119/46 (70) 100 06/13/19 13:00 98.3 40 15 121/39 (66) 100 06/13/19 12:00 38 15 112/52 (72) 98 06/13/19 12:00 2.0 06/13/19 12:00 38 06/13/19 12:00 Nasal Cannula 2.0 06/13/19 11:00 44 15 118/40 (66) 100 06/13/19 10:00 31 15 118/43 (68) 100 31 06/13/19 09:00 34 15 113/43 (66) 100 31 Intake and Output 06/13/19 06/14/19 18:59 06:59 Intake Total 350 ml 810 ml Output Total 450 ml 600 ml Balance -100 ml 210 ml Intake Oral 350 ml IV Total 810 ml Output Urine Total 450 ml 600 ml # Voids 2 3 Laboratory Tests 06/13/19 10:05: White Blood Count 6.3, Red Blood Count 4.10L, Hemoglobin 11.2L, Hematocrit 34.9L , Mean Corpuscular Volume 85, Mean Corpuscular Hemoglobin 27.4, Mean Corpuscular Hemoglobin Concent 32.1, Red Cell Distribution Width 12.2, Platelet Count 211, Mean Platelet Volume 7.7, Neutrophils (%) (Auto) 66.7, Lymphocytes (% ) (Auto) 23.2, Monocytes (%) (Auto) 7.3, Eosinophils (%) (Auto) 2.3, Basophils ( %) (Auto) 0.4, Sodium Level 146H, Potassium Level 5.0, Chloride Level 109H, Carbon Dioxide Level 27, Anion Gap 10, Blood Urea Nitrogen 20H, Creatinine 1.0, Estimat Glomerular Filtration Rate , Glucose Level 104, Calcium Level 8.8, Total Bilirubin 0.5, Aspartate Amino Transf (AST/SGOT) 34, Alanine Aminotransferase (ALT/SGPT) 22, Alkaline Phosphatase 87, Troponin I 0.000, Total Protein 6.5, Albumin 3.1L, Globulin 3.4, Albumin/Globulin Ratio 0.9L 06/14/19 03:45: Sodium Level 140, Potassium Level 4.0, Chloride Level 107, Carbon Dioxide Level 28, Anion Gap 5, Blood Urea Nitrogen 19H, Creatinine 1.2, Estimat Glomerular Filtration Rate , Glucose Level 103, Calcium Level 8.6, Total Bilirubin 0.3, Aspartate Amino Transf (AST/SGOT) 20, Alanine Aminotransferase (ALT/SGPT) 20, Alkaline Phosphatase 83, Total Protein 6.4, Albumin 2.9L, Globulin 3.5, Albumin/ Globulin Ratio 0.8L, Magnesium Level 1.8, Thyroid Stimulating Hormone (TSH) 3.638 Height (Feet): 6 Height (Inches): 1.00 Weight (Pounds): 179 General Appearance: WD/WN, alert Neck: supple Cardiovascular: normal rate Respiratory/Chest: chest wall non-tender, lungs clear, normal breath sounds Abdomen: normal bowel sounds, non tender, soft, no organomegaly Edema: no edema noted Arm (L), no edema noted Arm (R), no edema noted Leg (L), no edema noted Leg (R), no edema noted Pedal (L), no edema noted Pedal (R), no edema noted Generalized Xander Fofana MD Jun 14, 2019 08:43
[2019-06-14] MEDS: Memantine 10mg tab ORAL SCH (09:00)
[2019-06-14] MEDS: Aspirin EC 81mg tab ORAL SCH (09:00)
[2019-06-14] MEDS: ARIPiprazole 10mg tab ORAL SCH (09:00)
[2019-06-14] MEDS: Heparin 5000 units/ml inj SUBQ SCH ×2 (09:00→20:12)
--- NOTE | 2019-06-14 09:15 | NUR ---
NURSE NOTES: EKG done at bedside, results given to Dr Fofana.
[2019-06-14] MEDS ORDERED: Lidocaine 1% Plain 30 ml INJ ONE (13:05)
[2019-06-14] MEDS ORDERED: Isovue-M 300 15ml INJ ONE (13:05)
[2019-06-14] MEDS ORDERED: DiphenhydrAMINE 50mg/ml Inj ONE (13:44)
[2019-06-14] MEDS ORDERED: Ketamine 500mg Inj ONE (13:44)
--- NOTE | 2019-06-14 13:44 | NUR ---
NURSE NOTES: Blas, OR nurse at bedside to waste picker patient for pacemaker placement. Patient placed on portable heart monitor and cont. pulse ox. Patient remains in stable condition.
[2019-06-14] MEDS ORDERED: NS Irrig 1000ml ONE (14:00)
[2019-06-14] MEDS ORDERED: Sterile Water Irrig 1000ml IRRIG ONE (14:00)
[2019-06-14] MEDS ORDERED: Midazolam 2mg/2ml Inj ONE (14:05)
--- NOTE | 2019-06-14 14:14 | NUR ---
CASE MANAGEMENT:REVIEW 06/14/19 SI: HEART BLOCK 97.9 HR~27 RR~19 BP~138/92 98% ON 2L/NC IS: TO SURGERY FOR PACEMAKER PLACEMENT : STEP DOWN UNIT DCP: PATIENT IS FROM HOME
--- NOTE | 2019-06-14 14:30 | Pre-Procedure Note/Attestation ---
Pre-Procedure Note/Attestation Complete Prior to Procedure Planned Procedure: left Indications for Procedure Pre-Operative Diagnosis: CHB Attestation I attest that I discussed the nature of the procedure; its benefits; risks and complications; and alternatives (and the risks and benefits of such alternatives ), prior to the procedure, with the patient (or the patient's legal data entry representative). I attest that, if there was a reasonable possibility of needing a blood transfusion, the patient (or the patient's legal data entry representative) was given the [facility] standardized written summary, pursuant to the Anthony Rocael Blood Safety Act ([place] Health and Safety Code # 1645, as amended). I attest that I re-evaluated the patient just prior to the surgery and that there has been no change in the patient's H&P, except as documented below: Scottie Mcfarlane MD Jun 14, 2019 14:30
[2019-06-14] MEDS ORDERED: ePHEDrine 50mg/ml Inj ONE (15:04)
--- NOTE | 2019-06-14 15:12 | Brief Operative Note ---
Immediate Post Operative Note Operative Note Pre-op Diagnosis: CHB Procedure: Dual chamber [employer] pacer implantation dictated [id number] Post-op Diagnosis: same as pre-op Specimen: none Complications: none Condition: stable Fluids: none Estimated Blood Loss: minimal Implant(s) used?: Yes Scottie Mcfarlane MD Jun 14, 2019 15:12
[2019-06-14] MEDS ORDERED: Tylenol #3 tab (300mg/30mg) ORAL PRN (15:15)
[2019-06-14] MEDS ORDERED: Morphine Sulfate 2mg/ml Inj(IV/IM USE ONLY) IVP PRN (15:15)
--- NOTE | 2019-06-14 15:25 | Immediate Post-Op Evaluation ---
Immediate Post-Op Evalulation Immediate Post-Op Evalulation Procedure: permanant pace maker Date of Evaluation: Jun 14, 2019 Time of Evaluation: 15:25 IV Fluids: 300 Blood Pressure Systolic: 170 Blood Pressure Diastolic: 60 Pulse Rate: 90 Respiratory Rate: 14 O2 Sat by Pulse Oximetry: 99 Temperature (Fahrenheit): 99.6 Nausea: No Vomiting: No Patient Status: awake, reacts, patent Hydration Status: adequate Drug: ancef Given Within 1 Hr of Incision: Yes Time Given: 14:05 Norah Oneil CRNA Jun 14, 2019 15:25
--- NOTE | 2019-06-14 17:05 | NUR ---
NURSE NOTES: Received patient from recovery via hospital bed, bedside report received from EDWIN Tomas. Patient is awake, alert, verbally responsive. On room air, saturating 100%; no distress noted. Left chest noted to have clear dressing; clean, dry, intact, no bleeding noted at this time. Left arm sling noted, ice pack applied on left chest. BP 143/63, HR 60, Temp 97.5, RR 18. Patient denies pain at this time. Placed patient on cont quality assurance monitor final. Chest xray done at bedside. Will continue to monitor patient.
--- NOTE | 2019-06-14 17:20 | NUR ---
NURSE NOTES: EKG done, Dr Mcfarlane informed and made aware of results. Patient placed back on O2 2L. IV fluids resumed; IV intact and patent. Safety precautions in place; bed locked, alarmed, and in lowest position, side rails up x3, and call light left within reach. DaughterSandie, at bedside. Instructed to call for assistance, verbalized understanding. Will continue plan of care and will continue to monitor.
--- NOTE | 2019-06-14 19:15 | NUR ---
HAND-OFF: Report given to Wenceslao Antoine RN. Patient in stable condition.
--- NOTE | 2019-06-14 19:18 | NUR ---
NURSE NOTES: Pt report received from Dot Burgos RN PATO. pt remains stable. pt vital is stable. pt is alert and oriented times 3 and able to follow commands. is on a php mysql developer showing AV paced, no abnormalities noted. pt is on room air, showing 100% O2 sat, no distress. pt bed is low, locked, armed, call light within reach. bed rails up times 3. will follow plan of care.
[2019-06-14] MEDS: ceFAZolin sod 1 GM in D5W 55 ML IVP SCH (21:37)
--- NOTE | 2019-06-14 22:16 | Operative Note - Dictated ---
DATE OF OPERATION: 06/14/2019 SURGEON: Scottie Mcfarlane M.D. INDICATION FOR PROCEDURE: Intermittent complete heart block with heart rate in the 20s. PROCEDURES PERFORMED: 1. Dual-chamber permanent pacemaker implantation. 2. Fluoroscopic supervision and interpretation. 3. Pacemaker programming during initial implant. OPERATIVE REPORT: The patient was brought into the operating room in fasting state after informed consent was obtained. The patient was prepped and draped in usual fashion. Conscious sedation was provided by the anesthesiologist. The patient received a gram of Ancef within an hour of incision. After prep and drape and under sterile condition, a total of 20 mL of lidocaine was given to left prepectoralis area. An incision was made along the left deltopectoral groove. Sharp and blunt dissection was made to the level of pectoralis fascia. The cephalic vein was isolated and cutdown was performed. The right atrial and right ventricular lead was replaced through this access and was placed in the right atrial appendage and right ventricular apex with excellent sensing and pacing parameters. Both leads were then affixed to underlying pectoralis fascia. A pocket was made close to the venous access site and was irrigated with antibiotic solution. Both leads were then connected to the pacemaker and left in the pocket. The pocket was then closed in three layers using 2-0 Vicryl and Dermabond. The patient suffered no immediate complications from the procedure and was sent to recovery room in stable condition. FINDINGS: The pacemaker is from [employer], it is [employer]urity MRI, serial number is [id number], model number [id number]. Right atrial lead is from [employer], it is 2088TC 52 cm, serial number is [id number]. The right ventricular lead is from [employer], it is 2088TC 58 cm, serial number [id number]. The P-wave amplitude is 4.2 millivolts, threshold is 0.7 volts at 0.4 milliseconds, impedance of 462 ohms. R-wave is 5.5 millivolts, threshold is 0.4 volts at 0.4 milliseconds, impedance of 440 ohms. IMPRESSION: 1. Successful dual-chamber permanent pacemaker implantation. 2. Pacemaker was programmed at the rate of 60 up to rate of 120 with no immediate complications from the procedure. Scottie Mcfarlane M.D. DR: ALYSON JOB#: [id number] CC:
[2019-06-15] VITALS: BP 137/58
--- NOTE | 2019-06-15 00:15 | Progress Note ---
DATE: 06/14/2019 CARDIOLOGY PROGRESS NOTE SUBJECTIVE: The patient is status post dual-chamber pacemaker implant without complications. He is awake, alert, and in no distress. He notes some discomfort over the pacemaker insertion site. Monitored rhythm is atrial paced. OBJECTIVE: VITAL SIGNS: Blood pressure 143/63, pulse 60, and respirations 18. LUNGS: Chest wall with dressing in place. No signs of bleeding, erythema, or warmth. LUNGS: Clear. CARDIAC: Regular. Normal S1 and S2. ABDOMEN: Soft. EXTREMITIES: With trace dependent edema. IMPRESSION: 1. Advanced conduction system disease. 2. Episodes of complete heart block. 3. Status post permanent pacemaker. 4. Hypertensive heart disease with high normal blood pressure range. 5. Diastolic dysfunction with no signs of acute congestive heart failure. 6. 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 PLAN: 1. Postop care. 2. Cardiac monitoring. 3. Local skin care. 4. Titration of antihypertensive regimen. 5. Antiplatelet therapy. 6. DVT prophylaxis. 7. Mobilization. Ravi Trevino M.D. DR: VIOLETA JOB#: [id number] CC:
[2019-06-15 04:00] VITALS: BP 129/61
[2019-06-15] MEDS: ceFAZolin sod 1 GM in D5W 55 ML IVP SCH ×3 (05:12→21:16)
--- NOTE | 2019-06-15 07:30 | NUR ---
HAND-OFF: Report given to Marina PINEDA. Pt remains stable.
--- NOTE | 2019-06-15 07:37 | NUR ---
NURSE NOTES: Report received from EDWIN Avelar
[2019-06-15] MEDS: Aspirin EC 81mg tab ORAL SCH (08:14)
[2019-06-15] MEDS: ARIPiprazole 10mg tab ORAL SCH (08:14)
[2019-06-15] MEDS: Memantine 10mg tab ORAL SCH (08:14)
[2019-06-15] MEDS: Heparin 5000 units/ml inj SUBQ SCH ×2 (08:19→21:15)
--- NOTE | 2019-06-15 08:19 | NUR ---
NURSE NOTES: Patient was received awake in bed with no apparent acute distress.On nasal canula at 2LPM and saturate at 97%.Complaint of pain left shoulder s/p pace maker placement, Tylenol 650mg given, will reassess in 30mn.Patient afebrile alert and oriented x 3 person,place and situation with episode of confusion.Seen by Dr Fofana with order to discharge. made aware.RAC 20 G running 1/2 NS at 100cc/hr with no apparent infiltration.Patient help in self repositioning.HOB elevated to prevent aspiration.Uses urinal,urine yellow clear with no apparent sediments,no odor.Kept clean dry and comfortable. Call light within easy reach. Bed alarm on and bed locked in low position. 3/4 side rails up for Pt occasionally walk to bathroom.No skin impairment noted.Will continue to monitor.Patient kept clean dry and comfortable.
--- NOTE | 2019-06-15 09:15 | 48 Hour Post Anesthesia Eval ---
Post Anesthesia Evaluation Procedure: permanant pace maker Date of Evaluation: Jun 15, 2019 Time of Evaluation: 09:14 Blood Pressure Systolic: 129 0: 56 Pulse Rate: 62 Respiratory Rate: 20 Temperature (Fahrenheit): 97.4 O2 Sat by Pulse Oximetry: 98 Airway: patent Nausea: No Vomiting: No Pain Intensity: 2 Hydration Status: adequate Cardiopulmonary Status: stable Mental Status/LOC: patient returned to baseline Follow-up Care/Observations: n/a Post-Anesthesia Complications: none Follow-up care needed: N/A Dale Patel MD Jun 15, 2019 09:15
--- NOTE | 2019-06-15 10:00 | NUR ---
NURSE NOTES: Patient asleep, no apparent acute distress.Help for self repositioning. L chest pace maker checked and as stated by civil laboratory technician it in good condition.Ice pack offered for soreness at the site but pt refused at this time. Tylenol previously given and effective, pain 0/10 per patient at this time.Pt seen by Dr Mcfarlane will follow up with new order.Will continue to monitor
--- NOTE | 2019-06-15 10:03 | NUR ---
DISCHARGE PLANNING PATIENT HAS BEEN REFERRED TO [facility] T: [phone] F: [phone]
--- NOTE | 2019-06-15 10:32 | Cardiac Electrophysiology PN ---
Assessment/Plan Assessment/Plan 1.S/P DDD [employer] pacer implantation for Intermittent complete heart block and bradycardia with heart rate down to the 20s off any sinus or AV emilie blocking Interrogation today showed Nl Fx. CXR no Ptx. Pacer site no hematoma OK to DC from EP stand point 2. Atypical chest pain. The patient is already ruled out for myocardial infarction with serial cardiac enzymes with evaluation by Dr. Trevino. 3. History of dementia. Subjective Subjective Remains AV Paced since the pacer implant yesterday. No CP or SOB Objective Last 24 Hour Vital Signs Date Time Temp Pulse Resp B/P (MAP) Pulse Ox O2 Delivery O2 Flow Rate FiO2 06/15/19 09:15 62 20 98 06/15/19 08:46 97.0 06/15/19 08:00 2.0 06/15/19 08:00 67 06/15/19 08:00 Nasal Cannula 2.0 06/15/19 04:00 Nasal Cannula 2.0 06/15/19 04:00 2.0 06/15/19 04:00 65 06/15/19 04:00 98.4 63 19 129/61 (83) 100 06/15/19 00:00 98 06/15/19 00:00 97.9 66 18 137/58 (84) 100 06/15/19 00:00 2.0 06/15/19 00:00 Nasal Cannula 2.0 06/14/19 20:00 98.2 61 20 130/60 (83) 99 06/14/19 20:00 2.0 06/14/19 20:00 68 06/14/19 20:00 Nasal Cannula 2.0 06/14/19 17:35 Nasal Cannula 2.0 06/14/19 17:35 Nasal Cannula 2.0 06/14/19 17:15 97.9 60 19 143/63 (89) 100 06/14/19 17:05 2.0 06/14/19 17:05 67 06/14/19 16:30 97.6 74 15 165/69 100 Room Air 74 06/14/19 16:15 71 19 169/68 100 Room Air 71 06/14/19 16:00 70 15 171/72 100 Room Air 70 06/14/19 15:45 65 16 175/60 100 Room Air 65 06/14/19 15:30 69 18 179/56 100 Room Air 69 06/14/19 15:25 90 14 99 06/14/19 15:15 99.6 71 14 172/76 100 Room Air 71 06/14/19 12:00 Nasal Cannula 2.0 06/14/19 12:00 2.0 06/14/19 11:59 27 Intake and Output 06/14/19 06/15/19 18:59 06:59 Intake Total 828.86532 ml 1255 ml Output Total 625 ml 800 ml Balance 203.54518 ml 455 ml IV Total 828.36503 ml 1255 ml Output Urine Total 620 ml 800 ml Estimated Blood Loss 5 ml # Voids 4 # Bowel Movements 3 Microbiology Date/Time Source Procedure Growth Status 06/12/19 10:30 Nasal Nares 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 Complete 06/12/19 12:40 Rectum - Final NO CARBAPENEM-RESISTANT ENTEROBACTERI... Complete 06/12/19 10:30 Rectum VRE Culture - Final NO VANCOMYCIN RESISTANT ENTEROCOCCUS ... Complete Objective HEAD AND NECK: Shows no JVD or carotid bruits. LUNGS: Clear. CARDIOVASCULAR: Nl S1 and S2 with no gallop or murmur. Pacer left subclavian no hematoma ABDOMEN: Soft. EXTREMITIES: No pitting edema. Scottie Mcfarlane MD Jun 15, 2019 10:32
--- NOTE | 2019-06-15 10:53 | Diagnostic Imaging Report ---
Indication: Dyspnea Comparison: 06/12/2019 A single view chest radiograph was obtained. Findings: The heart is enlarged. Pulmonary vascularity is mildly prominent but there is no overt CHF. No infiltrate or evidence of pneumonia identified on this study. Pacemaker is present on the left which has been placed in the interval. There are 2 leads. One of these projects over the right atrium and the other projects over the right ventricular apex region. There is no pneumothorax. The bones are osteopenic. Precordial leads noted. IMPRESSION: Status post pacemaker placement. No pneumothorax. No acute disease
--- NOTE | 2019-06-15 10:58 | NUR ---
RADIOLOGY DEPT., CHEST X-RAY COMPLETED.-P.DYE
--- NOTE | 2019-06-15 11:14 | Diagnostic Imaging Report ---
Indication: Dyspnea Comparison: 06/14/2019 A single view chest radiograph was obtained. Findings: Pacemaker noted. This is unchanged. Heart is enlarged. Lungs remain clear. IMPRESSION: No acute findings
--- NOTE | 2019-06-15 11:17 | NUR ---
NURSE NOTES: Chest x ray result received and relayed to Dr Mcfarlane with no new order
--- NOTE | 2019-06-15 11:26 | NUR ---
NURSE NOTES: Left message to Dr Fofana to clarify discharge order.Per Mary she wants the pt to be discharge in rehabilitation center.Awaiting call back Addendum: 06/15/19 at 1134 by Marina Wooten RN per Dr Fofana pt referred to [facility], message left to Jakob Hooper
--- NOTE | 2019-06-15 12:00 | NUR ---
NURSE NOTES: Pt was positioned in semi abdi for lunch and consumed 100%. Tolerate well diet.Kept clean and dry.Call light within easy reach.Will continue to monitor
--- NOTE | 2019-06-15 12:39 | NUR ---
DISCHARGE PLANNING PATIENT HAS BEEN REFERRED TO AND ACCEPTED AT [facility] ROOM 15B SKILLED WAITING FOR DISCHARGE ORDER Addendum: 06/15/19 at 1647 by JOCELYN CRAWFORD LVN TRIED TO SEND PATIENT BUT FACILITY STATED NO BED PATIENT MAY TRANSFER IN AM
--- NOTE | 2019-06-15 14:29 | NUR ---
NURSE NOTES: Patient sitting in the chair at bedside watching tv with no apparent acute distress.Clean and dry.Call light within easy reach.Will continue to monitor.
--- NOTE | 2019-06-15 15:49 | Diagnostic Imaging Report ---
Indication: Intraoperative imaging COMPARISON: None FINDINGS: Single fluoroscopic image submitted for interpretation. Total fluoroscopic time 96 seconds. Coned-down image of the central part of the chest showing pacemaker wires one projected over the right atrium and the other over the right ventricle apex. IMPRESSION: Intraoperative imaging as described above
--- NOTE | 2019-06-15 16:11 | NUR ---
NURSE NOTES: Patient sitting in a chair watching tv. No apparent signs acute distress.Call light within easy reach.Denied of any pain and discomfort at this time.Discharge postpone for tomorrow.Daughter Mary made aware.Will continue to monitor.
--- NOTE | 2019-06-15 18:12 | NUR ---
NURSE NOTES: Patient back in bed.ADLs done, turned and repositioned.HOB elevated to prevent aspiration.Kept clean dry and comfortable.Call light within easy reach.Will continue to monitor
--- NOTE | 2019-06-15 19:24 | NUR ---
HAND-OFF: Report given to EDWIN Hernandez. Endorsed to follow up with discharge order once case management confirmed placement.
--- NOTE | 2019-06-15 19:25 | NUR ---
NURSE NOTES: received pt from Marina PINEDA., pt is awake and AOx3 with forgetfulness. pt is sitting on the bed. pt has no SOB at this moment and no Pain. pt Left HAnd 22G IV site is clean, patent, and intact. urinal at the bed side. call light within reach. bed at the lowest position, alarmed, and locked. will continue to monitor pt with plan of care.
[2019-06-15 20:00] VITALS: BP 142/95
--- NOTE | 2019-06-15 23:30 | Progress Note ---
DATE: 06/15/2019 CARDIOLOGY PROGRESS NOTE SUBJECTIVE: The patient is post status post permanent pacemaker implant yesterday. He denies pain or shortness of breath. Monitor reveals atrial pacing. OBJECTIVE: VITAL SIGNS: Blood pressure 129/61, heart rate 63, and respirations 19. LUNGS: Clear. Chest wall pacemaker pocket site with no signs of erythema, warmth, or discharge. CARDIAC: Regular. ABDOMEN: Soft. EXTREMITIES: No edema. IMAGING: Chest x-ray today reveals no acute findings. IMPRESSION: 1. 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 2. Mild prerenal azotemia. 3. Chronic kidney disease. 4. Hypertensive heart disease. 5. Cerebrovascular disease with dementia. 6. Dehydration with hypernatremia and hyperchloremia, corrected. 7. Moderate protein-calorie malnutrition. 8. Acute on chronic diastolic congestive heart failure. PLAN: 1. Discontinue intravenous fluids. 2. Encourage oral intake. 3. Protein supplements. 4. Maintain current cardiovascular regimen. 5. Recheck laboratory studies. 6. Mobilize as able. Ravi Trevino M.D. DR: VIOLETA JOB#: [id number] CC:
[2019-06-16] VITALS: BP 141/64
--- NOTE | 2019-06-16 02:45 | Discharge Summary ---
DATE OF ADMISSION: 06/12/2019 DATE OF DISCHARGE: 06/15/2019 ADMISSION DIAGNOSES: 1. Bradycardia. 2. Near syncope. 3. History of hypertension. 4. History of dementia and psychosis. 5. Diabetes. DISCHARGE DIAGNOSES: 1. Bradycardia. 2. Near syncope. 3. History of hypertension. 4. History of dementia and psychosis. 5. Diabetes. HOSPITAL COURSE: The patient is a pleasant 88-year-old male, well known to me. He has a history of chronic bradycardia, but presented with symptomatic bradycardia, which he had not had before. He was initially admitted to the intensive care unit. His heart rate dropped as low as to 30s, but blood pressure remained stable, but the family did note that the patient had more weakness and felt dizzy at times. He was ruled out for myocardial infarction with serial enzymes and EKG's. Thyroid function tests were normal. He underwent placement of a pacemaker without complication. He felt significantly better afterwards according to the family members. Family requested that he go to a senior care facility. DISCHARGE MEDICATIONS: Please see discharge medication list for discharge medications. DIET: Cardiac diabetic diet. ACTIVITIES: Ad-reuben. FOLLOWUP: The patient will follow up in 1 to 2 days at the senior care facility. Xander Fofana M.D. DR: TERESA JOB#: [id number] CC:
[2019-06-16 04:00] VITALS: BP 141/71
[2019-06-16] MEDS: ceFAZolin sod 1 GM in D5W 55 ML IVP SCH (05:07)
[2019-06-16 05:26] LABS: BASOPHILS % (AUTO) 0.5 % (0.0-2.0); EOSINOPHILS % (AUTO) 2.1 % (0.0-3.0); HEMATOCRIT 35.3 % (42.0-52.0); HEMOGLOBIN 11.3 G/DL (14.2-18.0); LYMPHOCYTES % (AUTO) 20.7 % (20.0-45.0); MEAN CORPUSCULAR VOLUME 85 FL (80-99); MONOCYTES % (AUTO) 7.6 % (1.0-10.0); NEUTROPHILS % (AUTO) 69.3 % (45.0-75.0); PLATELET COUNT 202 K/UL (150-450); RED BLOOD COUNT 4.14 M/UL (4.70-6.10); RED CELL DISTRIBUTION WIDTH 11.9 % (11.6-14.8); WHITE BLOOD COUNT 8.6 K/UL (4.8-10.8)
[2019-06-16 05:55] LABS: ALANINE AMINOTRANSFERASE 12 U/L (12-78); ALBUMIN 3.1 G/DL (3.4-5.0); ALBUMIN/GLOBULIN RATIO 0.8 (1.0-2.7); ALKALINE PHOSPHATASE 93 U/L (46-116); ANION GAP 4 mmol/L (5-15); ASPARTATE AMINO TRANSFERASE 24 U/L (15-37); BILIRUBIN,TOTAL 0.4 MG/DL (0.2-1.0); BLOOD UREA NITROGEN 14 mg/dL (7-18); CALCIUM 8.7 MG/DL (8.5-10.1); CARBON DIOXIDE 29 MMOL/L (21-32); CHLORIDE 107 MMOL/L (98-107); CREATININE 1.1 MG/DL (0.55-1.30); POTASSIUM 4.2 MMOL/L (3.5-5.1); SODIUM 140 MMOL/L (136-145)
--- NOTE | 2019-06-16 07:40 | NUR ---
NURSE NOTES: spoke to Dr. Fofana regarding Discharge order. Dr. Fofana will put the order for discharge for today.
--- NOTE | 2019-06-16 07:45 | NUR ---
HAND-OFF: Report given to Char PINEDA. pt is stable and waiting for discharge.
--- NOTE | 2019-06-16 07:50 | NUR ---
NURSE NOTES: Report received from Mary Abdalla RN.Pt awake alert sitting up on bed ,just finished eating breakfast,ate with appetite,no resp distress presented denies any c/o chest pain,,skin warm and dry IV site to RH intact,uses urinal to void,SR up x2HOB elevatd caLL mcdaniel within reach at bedside ,bed lock in lowest position,will continue with plans of care.
--- NOTE | 2019-06-16 07:55 | NUR ---
NURSE NOTES: S/p Pacemaker insertion to LT chest,site clean dry and intact ,on A-Paced on the monitor.
[2019-06-16 08:00] VITALS: BP 110/54
--- NOTE | 2019-06-16 08:30 | NUR ---
NURSE NOTES: Dr Fofana at bedside,with orders to discharge pt to [facility],computer programming manager been aware since yesterday.
--- NOTE | 2019-06-16 08:45 | NUR ---
PT EVALUATION NOTE Patient seen for initial evaluation, see complete evaluation for details. Patient presents with generalized weakness and impaired balance which affects patient's ability to perform mobility tasks safely. Patient required CGA for transfers and CGA/min assist for ambulation. Patient able to ambulate 25 feet with unsteady gait and antalgic gait due to c/o pain bottom of R foot with WB. Patient will benefit from skilled inpatient PT intervention to address strength, safety, and balance to improve level of functional mobility. Recommend discharge to SNF for further rehab once medically cleared by MD. DME needs to be determined based on patient's progress. Addendum: 06/16/19 at 1117 by YASMANY QUINTANILLA PT Amended: Links added.
[2019-06-16] MEDS ORDERED: ABILIFY10 MG ORAL (09:00)
[2019-06-16] MEDS ORDERED: ASPIRIN EC81 MG ORAL (09:00)
[2019-06-16] MEDS ORDERED: NAMENDA10 MG ORAL (09:00)
[2019-06-16] MEDS ORDERED: ACETAMINOPHEN325 M1 ORAL (09:00)
--- NOTE | 2019-06-16 09:05 | General Progress Note ---
Assessment/Plan Problem List: (1) Hypertension ICD Codes: I10 - Essential (primary) hypertension SNOMED: 06443034 (2) Third degree heart block ICD Codes: I44.2 - Atrioventricular block, complete SNOMED: 99974917 Status: stable Assessment/Plan: dc planning to snf Subjective ROS Limited/Unobtainable: No Constitutional: Reports: weakness HEENT: Reports: no symptoms Cardiovascular: Reports: no symptoms Respiratory: Reports: no symptoms Gastrointestinal/Abdominal: Reports: no symptoms Genitourinary: Reports: no symptoms Neurologic/Psychiatric: Reports: no symptoms Endocrine: Reports: no symptoms Hematologic/Lymphatic: Reports: no symptoms Allergies: Coded Allergies: No Known Allergies (Verified Allergy, Mild, 08/21/10) All Systems: reviewed and negative except above Subjective no events. minimal shoulder pain paced. no bed at snf yesterday Objective Last 24 Hour Vital Signs Date Time Temp Pulse Resp B/P (MAP) Pulse Ox O2 Delivery O2 Flow Rate FiO2 06/16/19 08:00 99.1 65 21 110/54 (72) 97 06/16/19 04:00 98.4 63 18 141/71 (94) 99 06/16/19 04:00 1.0 06/16/19 04:00 Nasal Cannula 2.0 06/16/19 03:35 71 06/16/19 00:00 98.4 64 18 141/64 (89) 100 06/16/19 00:00 60 06/16/19 00:00 Nasal Cannula 2.0 06/15/19 20:00 99.3 83 20 142/95 (111) 100 06/15/19 20:00 Nasal Cannula 2.0 06/15/19 20:00 2.0 06/15/19 19:51 71 06/15/19 16:00 Nasal Cannula 2.0 06/15/19 16:00 65 06/15/19 16:00 2.0 06/15/19 16:00 60 06/15/19 12:00 60 06/15/19 12:00 Nasal Cannula 2.0 06/15/19 12:00 2.0 06/15/19 09:15 62 20 98 Intake and Output 06/15/19 06/16/19 19:00 07:00 Intake Total 1125.0 ml 55 ml Output Total 1525 ml 410 ml Balance -400.0 ml -355 ml Intake Oral 670 ml IV Total 455.0 ml 55 ml Output Urine Total 1525 ml 410 ml # Voids 7 3 Laboratory Tests 06/16/19 03:30: White Blood Count 8.6, Red Blood Count 4.14L, Hemoglobin 11.3L, Hematocrit 35.3L , Mean Corpuscular Volume 85, Mean Corpuscular Hemoglobin 27.2, Mean Corpuscular Hemoglobin Concent 31.9L, Red Cell Distribution Width 11.9, Platelet Count 202, Mean Platelet Volume 7.6, Neutrophils (%) (Auto) 69.3, Lymphocytes (%) (Auto) 20.7, Monocytes (%) (Auto) 7.6, Eosinophils (%) (Auto) 2.1, Basophils (%) (Auto) 0.5, Sodium Level 140, Potassium Level 4.2, Chloride Level 107, Carbon Dioxide Level 29, Anion Gap 4L, Blood Urea Nitrogen 14, Creatinine 1.1, Estimat Glomerular Filtration Rate , Glucose Level 98, Calcium Level 8.7, Magnesium Level 1.8, Total Bilirubin 0.4, Aspartate Amino Transf (AST /SGOT) 24, Alanine Aminotransferase (ALT/SGPT) 12, Alkaline Phosphatase 93, Pro- B-Type Natriuretic Peptide 1065H, Total Protein 7.0, Albumin 3.1L, Globulin 3.9 , Albumin/Globulin Ratio 0.8L Height (Feet): 6 Height (Inches): 0.00 Weight (Pounds): 188 General Appearance: WD/WN Neck: supple Cardiovascular: regular rhythm Respiratory/Chest: lungs clear Abdomen: normal bowel sounds, non tender, soft, no organomegaly Edema: no edema noted Arm (L), no edema noted Arm (R), no edema noted Leg (L), no edema noted Leg (R), no edema noted Pedal (L), no edema noted Pedal (R), no edema noted Generalized 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
[2019-06-16] MEDS: ARIPiprazole 10mg tab ORAL SCH (09:11)
[2019-06-16] MEDS: Aspirin EC 81mg tab ORAL SCH (09:11)
[2019-06-16] MEDS: Memantine 10mg tab ORAL SCH (09:11)
[2019-06-16] MEDS: Heparin 5000 units/ml inj SUBQ SCH (09:14)
--- NOTE | 2019-06-16 09:43 | NUR ---
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
--- NOTE | 2019-06-16 10:23 | NUR ---
NURSE NOTES: I called DAUGHTER Sandie Ramos notified patient is going to [facility] called the Facility,spoke to Georgette-report given,patient stable for discharge
--- NOTE | 2019-06-16 11:32 | NUR ---
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
[2019-06-16] MEDS ORDERED: 1/2 NS 1000ml IV ONE ×2 (11:34)
[2019-06-16] MEDS ORDERED: NS 275ml ONE ×2 (11:34)
--- NOTE | 2019-06-16 11:40 | NUR ---
NURSE NOTES: Pt discharged and out of the unit per gurney accompanied by ambulance personnel awake,alert in no resp distress,IV site to Rt hand removed.pt to be transported to [facility].
--- NOTE | 2019-06-16 15:21 | Cardiology Report ---
APPROVED REPORT EKG Measurement Heart [id number] AL 206P [id number] AV sequential pacemaker Abnormal ECG
--- NOTE | 2019-06-16 21:01 | Progress Note ---
DATE: 06/16/2019 CARDIOLOGY PROGRESS NOTE SUBJECTIVE: The patient has no complaints. He has no pain. No chest pain. No shortness of breath. He is status post permanent pacemaker implantation 2 days ago for advanced conduction system disease including complete heart block. OBJECTIVE: VITAL SIGNS: Blood pressure 141/71, heart rate 63, respirations 18. Monitor with AV pacing. LUNGS: Pacemaker pocket site clean, dry with no redness, warmth, or erythema. Lungs are clear. CARDIAC: Regular. Normal S1, S2. No new murmur. ABDOMEN: Soft. EXTREMITIES: No edema. IMPRESSION: 1. Stable status post permanent pacemaker implant for advanced conduction system disease including third-degree AV block. 2. Hypertensive heart disease with controlled blood pressure. 3. Diastolic dysfunction with compensated congestive heart failure. 4. Cerebrovascular disease with dementia at baseline. 5. Functional decline. PLAN: 1. Continue current cardiovascular regimen. 2. Observe for orthostasis. 3. Transfer to nursing facility for rehabilitation. 4. Pacemaker interrogation and programming as needed with regular sessions every 6 months to follow. Ravi Trevino M.D. DR: YOMAIRA JOB#: [id number] CC:
== END 2019-06-16 11:35 | DRG 243 ==
LOC: EDBEDREQSVC 10:24 → EDBEDREQ 10:24 → EMR 10:33 → ICU 10:40 → EDBEDREQ 11:50 → EDBEDREQSVC 11:52 → EDBEDREQ 11:53 → 2W 06-14 05:42
PROC: 02H63JZ Insertion of Pacemaker Lead into Right Atrium, Percutaneous Approach (ICD-10-PCS; principal; 2019-06-14 14:00)
PROC: 02HK3JZ Insertion of Pacemaker Lead into Right Ventricle, Percutaneous Approach (ICD-10-PCS; principal; 2019-06-14 14:00)
PROC: 0JH606Z Insertion of Pacemaker, Dual Chamber into Chest Subcutaneous Tissue and Fascia, Open Approach (ICD-10-PCS; principal; 2019-06-14 14:00)
DX: I44.2 Atrioventricular block, complete (principal); E87.0 Hyperosmolality and hypernatremia; R00.1 Bradycardia, unspecified; R07.89 Other chest pain; I11.9 Hypertensive heart disease without heart failure; R55 Syncope and collapse; F29 Unspecified psychosis not due to a substance or known physiological condition; E11.9 Type 2 diabetes mellitus without complications; N40.0 Benign prostatic hyperplasia without lower urinary tract symptoms; F01.50 Vascular dementia, unspecified severity, without behavioral disturbance, psychotic disturbance, mood disturbance, and anxiety; M19.90 Unspecified osteoarthritis, unspecified site; I45.10 Unspecified right bundle-branch block; E86.0 Dehydration
CPT/HCPCS: 36415; 71045; 76000; 80053; 82550; 83690; 83735; 83880; 84443; 84484; 85025; 85610; 85730; 87081; 93005; 94003; 94150; 99285; J2250; J7030

== ENCOUNTER 2019-11-01 18:08 | Emergency (ER) | payer MEDICARE, OTHER ==
[~2019-11-01] VITALS: Ht 180.3 cm; Wt 86.6 kg
[~2019-11-01 18:08] MED LIST changes: +ACETAMINOPHEN325 M1 ORAL; +ASPIRIN EC81 MG ORAL; +UNOBMED
--- NOTE | 2019-11-01 19:45 | NUR ---
ED Nurse Note: Pt brought into ed via wheelchair assist CO pain and stiffness in left knee. VSS no ss of distress noted. Pt stated that he woke up with discomfort suddenly. Awaiting ERMD at bedside
--- NOTE | 2019-11-01 19:55 | NUR ---
ED Nurse Note: ERMD at bedside
--- NOTE | 2019-11-01 20:00 | NUR ---
ED Nurse Note: xray at bedside
--- NOTE | 2019-11-01 20:23 | Emergency Room Report ---
History of Present Illness General Chief Complaint: Lower Extremity Injury Source: Patient Present Illness HPI 88-year-old male with history of dementia, high blood pressure, arthritis, and acid reflux here with complaining of left knee pain and muscle spasm difficulty walking times few days. Patient is ambulating with a cane. Denies being on any blood thinners. Denies any unilateral weakness. Patient is neurovascularly intact. No unilateral weakness noted. Up-to-date with his visits with neurologist. He is 's patient. In no apparent distress. Denies any fever and chills, URI symptoms. Denies any fall or injury, denies tingling numbness, denies calf tenderness. COVID-19 risk:Contact w/high r: No COVID-19 risk:Travel to affect: No Has patient experienced omer: No Allergies: Coded Allergies: No Known Allergies (Verified Allergy, Mild, 08/21/10) Patient History Past Medical History: see triage record Past Surgical History: none Pertinent Family History: none Immunizations: UTD Reviewed Nursing Documentation: PMH: Agreed; PSxH: Agreed Nursing Documentation-PMH Hx Cardiac Problems: Yes Hx Hypertension: Yes Hx Pacemaker: Yes Hx Asthma: No Hx COPD: No Hx Diabetes: No Hx Cancer: No Hx Gastrointestinal Problems: No Hx Dialysis: No History Of Psychiatric Problem: Yes - dementia Hx Neurological Problems: Yes - dementia Hx Cerebrovascular Accident: No Hx Seizures: No Review of Systems All Other Systems: negative except mentioned in HPI Physical Exam Vital Signs Date Time Temp Pulse Resp B/P (MAP) Pulse Ox O2 Delivery O2 Flow Rate FiO2 11/01/19 19:45 98.2 64 18 144/74 (97) 98 Room Air Sp02 EP Interpretation: reviewed, normal General Appearance: no apparent distress, alert, GCS 15, non-toxic Head: normocephalic, atraumatic Eyes: bilateral eye normal inspection, bilateral eye PERRL ENT: hearing grossly normal, normal pharynx, no angioedema, normal voice Neck: full range of motion, supple/symm/no masses Respiratory: chest non-tender, lungs clear, normal breath sounds, no rhonchi, no wheezing, speaking full sentences Cardiovascular #1: regular rate, rhythm, no edema, no murmur Gastrointestinal: normal bowel sounds, non tender, soft, non-distended, no guarding, no rebound Rectal: deferred Musculoskeletal: back normal, normal range of motion, no calf tenderness, no lower extremity edema, non-tender Neurologic: alert, motor strength/tone normal, oriented x3, sensory intact, responsive, speech normal Psychiatric: judgement/insight normal, memory normal, mood/affect normal, no suicidal/homicidal ideation Skin: no rash Lymphatic: no adenopathy Medical Decision Making PA Attestation All my diagnosis and treatment plans were reviewed ad discussed with my supervising physician Dr. Najera Diagnostic Impression: Primary Impression: Arthritis of knee Additional Impression: Muscle spasm ER Course 88-year-old male with history of dementia, high blood pressure, arthritis, and acid reflux here with complaining of left knee pain and muscle spasm difficulty walking times few days. Patient is ambulating with a cane. Denies being on any blood thinners. Denies any unilateral weakness. Patient is neurovascularly intact. No unilateral weakness noted. Up-to-date with his visits with neurologist. He is 's patient. In no apparent distress. Denies any fever and chills, URI symptoms. Denies any fall or injury, denies tingling numbness, denies calf tenderness. Ddx considered but are not limited to: Knee sprain, strain, fracture, contusion , meniscus tear injury, arthritis of knee, muscle spasm Vital signs: are WNL, pt. is afebrile H&PE are most consistent with: Arthritis of knee, muscle spasm ORDERS: Knee x-ray, Robaxin, Tylenol, Voltaren gel ER intervention: None DISCHARGE: At this time pt. is stable for d/c to home. Will provide printed patient care instructions, and any necessary prescriptions. Care plan and follow up instructions have been discussed with the patient prior to discharge. I explained to patient and that due to the current pandemic situation patient better to be discharged and get physical therapy referral from primary doctor at this time no apparent distress, also due to his dementia he needs to follow-up with neurologist, he is not currently experiencing a CVA or TIA. Other X-Ray Diagnostic Results Other X-Ray Diagnostic Results : X-Ray ordered: Left knee x-ray # of Views/Limited Vs Complete: 3 View Indication: Pain EP Interpretation: Yes PA Xray: Interpretation reviewed, by supervising MD, and agrees with findings. Interpretation: no dislocation, no soft tissue swelling, no fractures Impression: No acute disease Electronically Signed by: Garima KIM Scribe Text Obvious arthritis noted Last Vital Signs Date Time Temp Pulse Resp B/P (MAP) Pulse Ox O2 Delivery O2 Flow Rate FiO2 11/01/19 19:45 98.2 64 18 144/74 (97) 98 Room Air Disposition: HOME, SELF-CARE Condition: Stable Scripts Diclofenac Sodium (VOLTAREN) 100 Gm Gel..gram. 2 GM TP TID, #100 GM Prov: Garima Forrester 11/01/19 Acetaminophen* (TYLENOL EXTRA STRENGTH*) 500 Mg Tablet 500 MG ORAL Q8H PRN for Prn Headache/Temp > 101, #30 TAB 0 Refills Prov: Garima Forrester 11/01/19 Methocarbamol* (ROBAXIN-500*) 500 Mg Tablet 500 MG ORAL TID PRN for For Pain, #15 TAB 0 Refills Prov: Garima Forrester 11/01/19 Patient Instructions: Arthritis, [id number], Muscle Cramps and Spasms, Easy- to-Read Additional Instructions: Take medication as directed, follow-up with your primary care doctor for referral to physical therapy, if worsening symptoms return to the emergency room Garima Forrester Nov 01, 2019 20:23
[2019-11-01] MEDS ORDERED: ROBAXIN-500MG ORAL (20:24)
[2019-11-01] MEDS ORDERED: VOLTAREN100 G1 TP (20:24)
[2019-11-01] MEDS ORDERED: TYLENOL EXTRA500 MG ORAL (20:24)
[2019-11-01 20:29] VITALS: BP 144/74
--- NOTE | 2019-11-01 20:29 | NUR ---
ER DISCHARGE NOTE: Patient is cleared to be discharged home per ERMD, pt is aox4, on room air, with stable vital signs. pt was given dc and prescription instructions, pt was able to verbalize understanding, pt id band removed. pt is able to ambulate with steady gait. pt took all belongings.
--- NOTE | 2019-11-02 12:06 | Diagnostic Imaging Report ---
INDICATION: Knee Pain COMPARISON: None 3 views of the left knee were obtained. FINDINGS: No acute fracture demonstrated. Bones are osteopenic. There is narrowing of the joint space especially in the medial compartment. Chondrocalcinosis noted. No definite joint effusion seen. IMPRESSION: No acute injury appreciated. Osteoarthritis Chondrocalcinosis
== END 2019-11-01 20:29 | disposition home or self-care (01) ==
LOC: EMR 20:05
DX: M17.12 Unilateral primary osteoarthritis, left knee (principal); M62.838 Other muscle spasm; I10 Essential (primary) hypertension; Z95.0 Presence of cardiac pacemaker; F03.90 Unspecified dementia, unspecified severity, without behavioral disturbance, psychotic disturbance, mood disturbance, and anxiety; K21.9 Gastro-esophageal reflux disease without esophagitis
CPT/HCPCS: 99283

== ENCOUNTER 2020-06-05 11:46 | Inpatient (IN) | payer MEDICARE, OTHER ==
[~2020-06-05] VITALS: Ht 183.5 cm; Wt 81.1 kg
[~2020-06-05 11:46] MED LIST changes: +ROBAXIN-500MG ORAL; +TYLENOL EXTRA500 MG ORAL; +VOLTAREN100 G1 TP
[2020-06-05 11:56] VITALS: BP 133/58
--- NOTE | 2020-06-05 13:00 | NUR ---
ED Nurse Note: PT. WALKED IN TO ER FROM HOME WITH DAUGHTER DUE TO PATIENT COMPLAINT OF DIZZINESS X 2 DAYS NOW BUT DENIES HAVING CP. PER PT. HE HAS A HEADACHE THAT IS RATED 1/10 BUT NOT BOTHERING HIM BUT PT. STATED " I FEEL IT'S THERE". UPON ASSESSMENT OF JULIO CLAIRE AT THE BEDSIDE, HE STATED THAT "I FEEL LIKE HE IS GOING TO PASS OUT". PT. ATTACHED TO PSYCHIATRIC ATTENDANT FOR CONTINUOUS MONITORING. SOCKS PROVIDED TO THE PATIENT. NO S/S OF ACUTE RESPIRATORY DISTRESS NOTED AT THIS TIME. PT.'S DAUGHTER AT THE BEDSIDE.
--- NOTE | 2020-06-05 13:02 | Emergency Room Report ---
History of Present Illness General Chief Complaint: Dizziness Source: Patient, Family Member (Shanelle Bland) Present Illness HPI 89 YO male with history of prostate cancer, CAD, HTN, and implanted pacemaker, presents to the ED c/o dizziness" Light headed" with standing. Pt. is orthostatic positive. 5/10 in severity slow onset/progressive left sided ALFORD. No focal Neurological Deficits. x 2 days. Denies abdominal pain, or diarrhea. Reports chronic hx of constipation, he normally goes every 4 days. Pt. denies nausea or vomiting. He denies syncope. He denies visual changes or changes in hearing. Pt. reports ALFORD has been episodic. He denies neck pain or photophobia. He reports had similar ALFORD 2 weeks ago. He denies fevers or chills. He reports chronic right foot rash that he sees pitching coach for. He reports some pain with palpation. His caregiver is bedside and reports he is out of his "foot cream". (Shanelle Bland) Allergies: Coded Allergies: No Known Allergies (Verified Allergy, Mild, 08/21/10) COVID-19 Screening Contact w/high risk pt: No Recent Travel to affected area: No Experienced COVID-19 symptoms?: No COVID-19 Testing performed VEHICLE OPERATOR TECHNICIAN: No (Shanelle Bland) Patient History Past Medical History: see triage record, HTN, CAD Past Surgical History: pacemaker Pertinent Family History: none Reviewed Nursing Documentation: PMH: Agreed; PSxH: Agreed (Shanelle Bland) Nursing Documentation-PMH Past Medical History: No History, Except For Hx Cardiac Problems: Yes Hx Hypertension: Yes Hx Pacemaker: Yes Hx Asthma: No Hx COPD: No Hx Diabetes: No Hx Cancer: No Hx Gastrointestinal Problems: No Hx Dialysis: No History Of Psychiatric Problem: Yes - dementia Hx Neurological Problems: Yes Hx Cerebrovascular Accident: No Hx Seizures: No (Shanelle Bland) Review of Systems All Other Systems: negative except mentioned in HPI (Shanelle Bland) Physical Exam Vital Signs Date Time Temp Pulse Resp B/P (MAP) Pulse Ox O2 Delivery O2 Flow Rate FiO2 06/05/20 11:56 98.4 65 24 133/58 95 Room Air Sp02 EP Interpretation: reviewed, normal General Appearance: no apparent distress, alert, GCS 15, non-toxic, Chronically Ill Head: normocephalic, atraumatic Eyes: bilateral eye normal inspection, bilateral eye PERRL, bilateral eye other - no photophobia ENT: hearing grossly normal, normal voice Neck: full range of motion Respiratory: chest non-tender, lungs clear, normal breath sounds, no respiratory distress, no accessory muscle use, speaking full sentences, other - distant breathsounds Cardiovascular #1: regular rate, rhythm, no edema, normal capillary refill Gastrointestinal: normal bowel sounds, non tender, soft, non-distended, no guarding Musculoskeletal: normal range of motion, non-tender Neurologic: alert, motor strength/tone normal, oriented x3, sensory intact, responsive, speech normal, no pronator, grossly normal, no focal defects Psychiatric: judgement/insight normal Skin: rash - multiple areas of dry hyperkeratotic skin lesions, some ST swelling. NO erythema, no blisters or vesicles, warm/dry (Shanelle Bland) Procedures Critical Care Time Critical Care Time Pt. presentation to the ED mandated critical care. Pt. had an abnormal EKG and required immediate intervention to assess the risks and attempt to prevent cardiovascular compromise that could lead to . Critical care time is 45 minutes excluding any reportable procedure. Critical care time included evaluation, multiple reevaluation, looking at old charts, interpreting laboratory and diagnostic data, discussing case with patient and family ( Daughter) and consultants, and charting. (Shanelle Bland) Medical Decision Making PA Attestation Dr. Busch is my supervising Physician whom patient management has been discussed with. (Shanelle Bland) PA Attestation I participate in the care of this patient along with JULIO Navarro Briefly, 89-year-old male brought in for near syncopal events while standing. Denied chest pain. Labs show elevated creatinine from baseline. Troponin negative. EKG shows paced rhythm with some aberrancy. IV fluids provided. Patient will be admitted to his PMD, Dr. Fofana. (Christopher Busch MD) Diagnostic Impression: Primary Impression: Dizziness ER Course 89 YO male with history of prostate cancer, CAD, HTN, and implanted pacemaker, presents to the ED c/o dizziness" Light headed" with standing. Pt. is orthostatic positive. 5/10 in severity slow onset/progressive left sided ALFORD. No focal Neurological Deficits. x 2 days. Denies abdominal pain, or diarrhea. Reports chronic hx of constipation, he normally goes every 4 days. Pt. denies nausea or vomiting. He denies syncope. He denies visual changes or changes in hearing. Pt. reports ALFORD has been episodic. He denies neck pain or photophobia. He reports had similar ALFORD 2 weeks ago. He denies fevers or chills. He reports chronic right foot rash that he sees pitching coach for. He reports some pain with palpation. His caregiver is bedside and reports he is out of his "foot cream". Ddx considered but are not limited to Mnire's, BPPV, labrinitis, cerebellar stroke, hypovolemia, cardiac cause. Vital signs: are WNL, pt. is afebrile H&PE are most consistent with : Patient with complicated medical history inclu ding cardiac disease and implanted pacemaker c/o dizziness" Light headed" with standing. Pt. is orthostatic positive. 5/10 in severity slow onset/progressive left sided ALFORD. No focal Neurological Deficits. No focal deficit to indicate TIA or CVA. No vertical nystagmus. Better after IV fluid and Ativan. Because of lack of focality and red flags, I see no need for CT scan. We'll discharge home. ORDERS: -CBC: mild anemia -CMP: Cr. 1.7 -Troponin: 0.005 - CK- WNL -EK atrial paced rhythm with PAC's and some t wave inversion in anterior leads. -CXR: -COVID-19 : ED INTERVENTIONS: -1 Liter NS IV DISPOSITION: at this time pt. will be admitted to Dr. Fofana for Dizziness and Ischemic EKG changes. Dr. Fofana agreed to admit the pt. and to continue pt. care management. Labs Test 06/05/20 12:54 White Blood Count 6.2 K/UL (4.8-10.8) Red Blood Count 4.07 M/UL (4.70-6.10) Hemoglobin 11.0 G/DL (14.2-18.0) Hematocrit 34.1 % (42.0-52.0) Mean Corpuscular Volume 84 FL (80-99) Mean Corpuscular Hemoglobin 27.1 PG (27.0-31.0) Mean Corpuscular Hemoglobin Concent 32.3 G/DL (32.0-36.0) Red Cell Distribution Width 12.9 % (11.6-14.8) Platelet Count 174 K/UL (150-450) Mean Platelet Volume 8.6 FL (6.5-10.1) Neutrophils (%) (Auto) 75.7 % (45.0-75.0) Lymphocytes (%) (Auto) 15.9 % (20.0-45.0) Monocytes (%) (Auto) 6.3 % (1.0-10.0) Eosinophils (%) (Auto) 0.5 % (0.0-3.0) Basophils (%) (Auto) 1.6 % (0.0-2.0) Sodium Level 140 MMOL/L (136-145) Potassium Level 3.7 MMOL/L (3.5-5.1) Chloride Level 103 MMOL/L (98-107) Carbon Dioxide Level 30 MMOL/L (21-32) Anion Gap 7 mmol/L (5-15) Blood Urea Nitrogen 15 mg/dL (7-18) Creatinine 1.7 MG/DL (0.55-1.30) Estimat Glomerular Filtration Rate 46.3 mL/min (>60) Glucose Level 114 MG/DL (74-106) Calcium Level 9.3 MG/DL (8.5-10.1) Total Bilirubin 0.5 MG/DL (0.2-1.0) Aspartate Amino Transf (AST/SGOT) 18 U/L (15-37) Alanine Aminotransferase (ALT/SGPT) 7 U/L (12-78) Alkaline Phosphatase 99 U/L (46-116) Troponin I 0.005 ng/mL (0.000-0.056) Total Protein 6.9 G/DL (6.4-8.2) Albumin 3.9 G/DL (3.4-5.0) Globulin 3.0 g/dL Albumin/Globulin Ratio 1.3 (1.0-2.7) (Shanelle Bland) EKG Diagnostic Results Troponin ordered: Yes When was troponin ordered?: Jun 05, 2020 EKG Time: 12:19 Rate: normal - 66 bpm Rhythm: NSR ST Segments: other - inverted T-waves in anterior leads. Prolonged AV conduction, Atrial paced rhythm with PAC's Other Impression Atrial paced rhythm. ASA given to the pt in ED: No PA Scribe Text This Interpretation was scribed by JULIO Bland. (Shanelle Bland) Last Vital Signs Date Time Temp Pulse Resp B/P (MAP) Pulse Ox O2 Delivery O2 Flow Rate FiO2 06/05/20 11:56 65 24 Room Air 06/05/20 11:56 98.4 123/69 (87) 95 (Shanelle Bland) Disposition: ADMITTED INPATIENT Condition: Serious Shanelle Bland Jun 05, 2020 13:02 Christopher Busch MD Jun 05, 2020 14:41
[2020-06-05 13:22] LABS: CALCIUM 9.3 MG/DL (8.5-10.1); CREATININE 1.7 MG/DL (0.55-1.30); POTASSIUM 3.7 MMOL/L (3.5-5.1)
[2020-06-05 13:24] LABS: BASOPHILS % (AUTO) 1.6 % (0.0-2.0); EOSINOPHILS % (AUTO) 0.5 % (0.0-3.0); HEMATOCRIT 34.1 % (42.0-52.0); LYMPHOCYTES % (AUTO) 15.9 % (20.0-45.0); MEAN CORPUSCULAR VOLUME 84 FL (80-99); MONOCYTES % (AUTO) 6.3 % (1.0-10.0); NEUTROPHILS % (AUTO) 75.7 % (45.0-75.0); PLATELET COUNT 174 K/UL (150-450); RED BLOOD COUNT 4.07 M/UL (4.70-6.10); RED CELL DISTRIBUTION WIDTH 12.9 % (11.6-14.8); WHITE BLOOD COUNT 6.2 K/UL (4.8-10.8)
[2020-06-05 13:26] LABS: ALBUMIN 3.9 G/DL (3.4-5.0); ALBUMIN/GLOBULIN RATIO 1.3 (1.0-2.7); BILIRUBIN,TOTAL 0.5 MG/DL (0.2-1.0)
--- NOTE | 2020-06-05 13:31 | NUR ---
ED Nurse Note: REPORT GIVEN TO EDWIN ROMAN
[2020-06-05 14:20] VITALS: BP 112/58
--- NOTE | 2020-06-05 14:34 | NUR ---
ED Nurse Note: Xray at bedside.
--- NOTE | 2020-06-05 15:00 | NUR ---
EMERGENCY CONTACT: Sandie (daughter): [phone]
--- NOTE | 2020-06-05 15:07 | Diagnostic Imaging Report ---
Indication: Shortness of breath Technique: XRAY Chest 1v Comparison: 06/15/2019 Findings: Stable cardiomegaly. Mediastinal contours are sharp. Atherosclerotic calcifications noted in the aorta. There is a indwelling dual-lead pacemaker. Mild pulmonary vascular prominence. No focal consolidation, pleural effusion or pneumothorax. Osseous structures demonstrate no acute abnormality. Surgical clips noted in the right upper quadrant. Impression: Cardiomegaly and mild central pulmonary vascular congestion
--- NOTE | 2020-06-05 16:06 | NUR ---
ED Nurse Note: Report given to Sasha PINEDA.
[2020-06-05] MEDS ORDERED: AMLODIPINE BESYL5 MG ORAL (16:10)
[2020-06-05] MEDS ORDERED: FLOMAX0.4 MG ORAL (16:10)
[2020-06-05] MEDS ORDERED: CARBIDOPA-LEVO1 EA12 PO (16:10)
[2020-06-05] MEDS ORDERED: NAMENDA10 MG ORAL (16:10)
[2020-06-05] MEDS ORDERED: ASPIRIN81 MG ORAL (16:10)
[2020-06-05 16:11] VITALS: BP 137/61
--- NOTE | 2020-06-05 16:25 | NUR ---
TRANSFER TO FLOOR: Patient transferred to Telemetry. Reprot given to Tammiei RN. Pt AAOx4, verbally responsive. No SOB, on room air. IV line on left AC 20g patent and intact. No skin issues. Ambulatory. Med recon done. All belongings sent with the pateint. Family aware of the transfer.
--- NOTE | 2020-06-05 16:30 | NUR ---
NURSE NOTES: pt received from [facility] ED RN. Pt stable awake alert and responsive, no complaint of dizzyness or lightheadedness at this time. Vitals as follows 100% on RA, 60bpm, 133/66 Bp (automatic right arm), 97.5 F oral, and no complaint of pain. Bed low and locked call light placed in hand. Gown changed, telel box applied, explained safety and fall prevention importance.
[2020-06-05] MEDS ORDERED: Methocarbamol 500mg tab ORAL PRN (17:00)
[2020-06-05] MEDS ORDERED: Memantine 10mg tab ORAL SCH (17:00)
[2020-06-05] MEDS: Levodopa/Carbidopa 25/100 tab ORAL SCH (17:52)
--- NOTE | 2020-06-05 19:28 | NUR ---
NURSE HAND-OFF REPORT: Important Events on Shift:[No complaints of dizziness or light headedness. Admitted roughly 2 hours ago] Patient Status: [Awake and alert, pulled out IV noc RN will reinsert shortly] Diet: [cardiac] Pending Orders: [] Pending Results/Labs:[] Pending MD notification:[] Latest Vital Signs: Temperature 98.4 , Pulse 62 , B/P 137 /61 , Respiratory Rate 15 , O2 SAT 100 , Room Air, O2 Flow Rate . Vital Sign Comment: [] EKG Rhythm: Sinus Rhythm Rhythm change?: MD Notified?: - MD Response: Latest Goldberg Fall Score: 15 Fall Risk: Low Risk Safety Measures: Call light Within Reach, Bed Alarm Zone 1, Side Rails Side Rails x2, Bed position Low and Locked. Fall Precautions: Yellow Socks Yellow Gown Patient Fall Education Report given to [Vargas PINEDA].
--- NOTE | 2020-06-05 19:31 | NUR ---
NURSE NOTES: RECEIVED REPORT FROM EDWIN HARRELL. PATIENT OX3 WITH FORGETFULNESS, VERBALLY RESPONSIVE AND ABLE TO MAKE NEEDS KNOWN. NO COMPLAINTS OF PAIN OR DISCOMFORT AT THIS TIME. BREATHING IS EVEN AND UNLABORED ON ROOM AIR, NO S/SX OF DISTRESS NOTED. PATIENT NOTED TO HAVE PULLED OUT PREVIOUS IV SITE- GAUZE APPLIED TO STOP BLEEDING. PATIENT ABLE TO TURN AND REPOSITION SELF INDEPENDENTLY IN BED, ABLE TO STAND UP AND AMBULATE WITH MINIMAL ASSISTANCE. FALL PRECAUTIONS IN PLACE. EDUCATED PATIENT ON FALL PREVENTION PRACTICES. BED LOCKED AND IN LOWEST POSITION, SIDERAILS UP X 2. CALL LIGHT WITHIN REACH, WILL CONTINUE TO MONITOR PER POC.
[2020-06-05 20:00] VITALS: BP 124/59
[2020-06-05] MEDS: Memantine 10mg tab ORAL SCH (20:10)
[2020-06-05] MEDS: Tamsulosin 0.4mg cap ORAL SCH (20:10)
--- NOTE | 2020-06-05 21:30 | NUR ---
NURSE NOTES: IV ACCESS ESTABLISHED ON LFA 20G. PATENT, INTACT, ASYMPTOMATIC- IVF RESUMED ORDERED.
--- NOTE | 2020-06-05 23:00 | NUR ---
NURSE NOTES: PATIENT NOTED TO HAVE REMOVED IV ACCESS. PER PATIENT, HE WENT TO THE RESTROOM AND "FORGOT" ABOUT THE IV, AND IT WAS PULLED OUT ACCIDENTALLY WHEN HE GOT UP AND AMBULATED. PATIENT REQUESTS IV INSERTION AT ANOTHER TIME BECAUSE HE WANTS TO REST. EXPLAINED TO PATIENT HE HAS PRESCRIBED FLUIDS THAT NEEDS TO BE RUN THROUGH AN IV, BUT PATIENT REFUSES AND STATES TO COME BACK AFTER HE HAS RESTED. INFORMED FUENTES, CN. WILL TRY AGAIN AT A LATER TIME.
[2020-06-06] VITALS: BP 123/62
--- NOTE | 2020-06-06 00:40 | NUR ---
NURSE NOTES: IV ACCESS ESTABLISHED ON LAC 18G. IVF RESUMED PRESCRIBED.
[2020-06-06 04:00] VITALS: BP 134/61
--- NOTE | 2020-06-06 04:45 | Consultation ---
DATE OF CONSULTATION: 06/05/2020 CARDIOLOGY CONSULTATION CONSULTING PHYSICIAN: Ravi Trevino MD REASON FOR CONSULTATION: Orthostatic hypotension with abnormal EKG. HISTORY OF PRESENT ILLNESS: This 89-year-old male is known to me from prior care. He has a history of hypertensive heart disease, coronary atherosclerosis, and a permanent pacemaker for sinus node disease. He has been dizzy and lightheaded especially upon standing. He has complained of a headache. He has been increasingly weak and nauseated and eating poorly. He was seen in the emergency room and was noted to be orthostatic with abnormal EKG and hospitalization initiated. PAST MEDICAL HISTORY: Hypertension, coronary atherosclerosis, prostate cancer, osteoarthritis, degenerative disk disease, cerebrovascular disease with dementia, hypertensive heart disease, degenerative valve disease, and permanent pacemaker. ALLERGIES: None. MEDICATIONS: Reviewed. FAMILY HISTORY: Noncontributory. SOCIAL HISTORY: Nonsmoker. No alcohol or substance abuse. Lives with daughter. He is a . REVIEW OF SYSTEMS: No fevers or chills. No COVID-19 exposures. His pacemaker was interrogated in the last 3 months and functioning appropriately. No history of seizures. 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 No change in bowel habits. He has chronic constipation. He has prostate cancer in remission. There is no history of COPD or abnormal blood clotting. His outpatient echocardiogram revealed normal ejection fraction, concentric hypertrophy, and mild degenerative valve disease. PHYSICAL EXAMINATION: VITAL SIGNS: Afebrile, blood pressure 133/58, heart rate 65, and respiratory rate 24. HEENT: Temporal wasting. Conjunctivae pink. Arcus senilis. Oropharynx clear. Mucous membranes dry. NECK: Supple. Jugular venous pressure normal. LUNGS: Clear. CHEST WALL: Without deformity. Pacemaker pocket site clean and dry. CARDIAC: Regular rhythm and rate. Normal S1 and S2 with a 1/6 systolic murmur at base. ABDOMEN: Soft, nontender. EXTREMITIES: No edema. NEUROLOGIC: Mild cognitive impairment, otherwise nonfocal. LABORATORY AND DIAGNOSTIC DATA: EKG, atrial-paced, complete right bundle-branch block, nonspecific T-wave abnormality. Chest x-ray with cardiomegaly and possibly increased pulmonary venous congestion versus interstitial changes. Labs, BUN 15, creatinine 1.7, bicarb 30, sodium 140, potassium 3.7, glucose 114. Albumin 3.9. White count is 6.2 and hemoglobin 11. IMPRESSION: Orthostatic syncopal symptoms, orthostatic hypotension, hypovolemia, dehydration, permanent pacemaker, cardiomyopathy due to hypertension, and chronic diastolic congestive heart failure with possible acute component. PLAN: Hold antihypertensives. Cautiously hydrate. Cardiac monitoring. Follow up troponin levels. Trend natriuretic peptide assay. Check thyroid function. Fall precautions. Physical and occupational therapy assessment. Ravi Trevino M.D. DR: Ajay JOB#: [id number] CC:
--- NOTE | 2020-06-06 07:14 | NUR ---
NURSE HAND-OFF REPORT: Important Events on Shift: RESTLESS/IMPULSIVE BEHAVIOR Patient Status: STABLE Diet: CARDIAC DIET, WHOLE PILLS OKAY Pending Orders: VENOUS DUPLEX FOR TODAY Pending Results/Labs: AM LABS Pending MD notification: N/A Latest Vital Signs: Temperature 97.2 , Pulse 60 , B/P 134 /61 , Respiratory Rate 18 , O2 SAT 99 , Room Air, O2 Flow Rate . Vital Sign Comment: STABLE EKG Rhythm: V-Paced Rhythm change?: N MD Notified?: - MD Response: Latest Goldberg Fall Score: 15 Fall Risk: Low Risk Safety Measures: Call light Within Reach, Bed Alarm Zone 1, Side Rails Side Rails x2, Bed position Low and Locked. Fall Precautions: Patient Fall Education Report given to EDWIN HARRELL.
--- NOTE | 2020-06-06 07:17 | NUR ---
NURSE NOTES: Pt received from Tricia PINEDA. pt in bed sleeping. Bed low and locked. Call light within reach. No distress noted. NS running in L AC at 75cc/hr
[2020-06-06 07:35] LABS: HEMATOCRIT 35.5 % (42.0-52.0); HEMOGLOBIN 11.3 G/DL (14.2-18.0); MEAN CORPUSCULAR VOLUME 85 FL (80-99); PLATELET COUNT 256 K/UL (150-450); RED BLOOD COUNT 4.19 M/UL (4.70-6.10); RED CELL DISTRIBUTION WIDTH 12.9 % (11.6-14.8); WHITE BLOOD COUNT 7.5 K/UL (4.8-10.8)
[2020-06-06 07:48] LABS: ALBUMIN 4.3 G/DL (3.4-5.0); ALBUMIN/GLOBULIN RATIO 1.1 (1.0-2.7); BILIRUBIN,TOTAL 0.4 MG/DL (0.2-1.0); CALCIUM 9.4 MG/DL (8.5-10.1); CREATININE 1.4 MG/DL (0.55-1.30); POTASSIUM 3.1 MMOL/L (3.5-5.1)
[2020-06-06 08:00] VITALS: BP_SYST 132; BP_SYST 163; BP_DIAS 62; BP_DIAS 95
[2020-06-06] MEDS: ARIPiprazole 10mg tab ORAL SCH (09:03)
[2020-06-06] MEDS: Aspirin EC 81mg tab ORAL SCH (09:03)
[2020-06-06] MEDS: Levodopa/Carbidopa 25/100 tab ORAL SCH ×3 (09:03→17:17)
--- NOTE | 2020-06-06 09:15 | History and Physical Report ---
DATE OF ADMISSION: 06/05/2020 CHIEF COMPLAINT: Near syncope and dizziness. HISTORY OF PRESENT ILLNESS: The patient is a pleasant 89-year-old male, well known to me. He has a history of conduction system disease status post pacemaker, dementia, atherosclerotic cardiovascular disease, and hypertension. He presented from home with complaints of dizziness. According to the patient's daughter, the patient was very unsteady on the day of admission. At several episodes, he has had near falls, but was caught by family members. There are no reports of any nausea, vomiting, or diarrhea. No dysuria. According to the patient's family, he has been eating well. On evaluation in the emergency room, vital signs were stable. Labs were significant for elevated creatinine of 1.7. Chest x-ray showed mild pulmonary vascular congestion. In light of the patient's dizziness and worsening renal failure, he is now admitted for further evaluation and care. PAST MEDICAL HISTORY: As above. PAST SURGICAL HISTORY: Includes a pacemaker. CURRENT MEDICATIONS: Reconciled and reviewed. ALLERGIES: None. FAMILY HISTORY: None. SOCIAL HISTORY: There is no known history of tobacco, ethanol, or drugs. REVIEW OF SYSTEMS: GENERAL: No fevers or chills. HEENT: No headaches or visual changes. CARDIOPULMONARY: No chest pain or shortness of breath. GASTROINTESTINAL: No nausea or vomiting. GENITOURINARY: No urgency or frequency. MUSCULOSKELETAL: No joint pain or swelling. NEUROLOGIC: No evidence of seizures. PHYSICAL EXAMINATION: VITAL SIGNS: Temperature 97.5, pulse 63, respirations 18, and blood pressure 124/59. GENERAL: The patient is well developed, in no apparent distress. Awake, alert, and oriented x2. HEENT: Head, normocephalic and atraumatic. Oropharynx clear. NECK: Supple. No adenopathy. HEART: Regular rate and rhythm. LUNGS: Clear. ABDOMEN: Soft, nontender, nondistended. EXTREMITIES: Without clubbing, cyanosis, or edema. LABORATORY DATA: Sodium 137, potassium 3.7, creatinine of 1.7. White count was 6, hemoglobin 11. ASSESSMENT: This is an 89-year-old male admitted with near syncope, likely secondary to dehydration. PLAN: 1. IV fluids. 2. Continue current blood pressure regimen. 3. Monitor orthostatic vital signs. 4. Repeat renal function. 5. Cardiology consultation. Xander Fofana M.D. DR: MAURICE JOB#: [id number] CC:
[2020-06-06 12:00] VITALS: BP 130/71
--- NOTE | 2020-06-06 13:37 | NUR ---
P.T Note: P.T evaluation completed and tx initiated. Please refer to P.T evaluation for full report.
--- NOTE | 2020-06-06 15:01 | NUR ---
CASE MANAGEMENT: INITIAL REVIEW 89 YO M PRESENTED TO ED FROM HOME CC: DIZZINESS PMHx: prostate cancer, CAD, HTN, and implanted pacemaker SI:DIZZINESS. ISCHEMIC CHANGES ON ELECTROCARDIOGRAM VS: T 98.4 HR 65 RR 24 B/P 133/58 SATS 95% ON RA LABS: CR 1.7 GLU 114 ALT 7 IS: EKG Other Impression: Atrial paced rhythm. KDUR PO X1 NS BOLUS X1 PATIENT ADMITTED TO TELE 06/06/2020 @ 0207 DCP: HOME PLAN OF CARE: CAROTID VERTEBRAL DUPLEX PT EVAL
--- NOTE | 2020-06-06 15:21 | Diagnostic Imaging Report ---
Indication: TIA TECHNIQUE: Duplex extracranial carotid and vertebral artery sonography performed with color flow imaging and waveform analysis. COMPARISON: None FINDINGS: Right carotid: Grayscale and color-flow imaging demonstrating no hemodynamically significant stenosis within the common carotid artery, extracranial internal carotid artery. Peak systolic and end-diastolic velocities are within normal limits. ICA/CCA ratios are within normal limits. There are scattered noncalcified atherosclerotic plaques and multifocal mild intimal thickening. Left carotid: Grayscale and color-flow imaging demonstrating no hemodynamically significant stenosis within the common carotid artery, extracranial internal carotid artery. Peak systolic and end-diastolic velocities are within normal limits. ICA/CCA ratios are within normal limits. There are scattered noncalcified atherosclerotic plaques and multifocal mild intimal thickening. Vertebral arteries: Antegrade flow demonstrated within both vertebral arteries. IMPRESSION: 1. No hemodynamically significant extracranial carotid artery stenosis identified. 2. Antegrade flow within both vertebral arteries. This report utilizes carotid stenosis grading criteria based on the meeting of Society of radiologists in ultrasound consensus conference, May 2002.
[2020-06-06 16:00] VITALS: BP 140/66
--- NOTE | 2020-06-06 19:14 | NUR ---
NURSE HAND-OFF REPORT: Important Events on Shift:[wanders, cut IV line with knife, confused. sat by room all day. moved closer to nurse station to monitor. K 3.1 replaced with 30meq. bp slightly elevated no coverage] Patient Status: [Awake and alert, confused and forgetful] Diet: [cardiac] Pending Orders: [] Pending Results/Labs:[] Pending MD notification:[] Latest Vital Signs: Temperature 98.6 , Pulse 60 , B/P 140 /66 , Respiratory Rate 20 , O2 SAT 97 , Room Air, O2 Flow Rate . Vital Sign Comment: [] EKG Rhythm: Sinus Rhythm Rhythm change?: N MD Notified?: Bridger Fofana MD Response: Latest Goldbegr Fall Score: 50 Fall Risk: High Risk Safety Measures: Call light Within Reach, Bed Alarm Zone 1, Side Rails Side Rails x2, Bed position Low and Locked. Fall Precautions: Patient Fall Education Report given to [[place] PINEDA].
--- NOTE | 2020-06-06 19:20 | NUR ---
NURSE NOTES: Pt received from Ani RN. Pt is resting comfortably in bed and denies pain. Pt is A/O x2 and requires orientation to situation and reason for being in hospital; pt is standby assist for walking. Pt is on cardiac monitoring SR and asymptomatic. Pt is on RA breathing unlabored and asymptomatic. Pt uses urinal and walks to restroom with assistance. Pt has LAC 18G running NS 75ml/hr patent with skin dry and intact. Bed is locked in lowest position with call light within reach. Will continue to monitor.
[2020-06-06 20:00] VITALS: BP 124/60
[2020-06-06] MEDS: Memantine 10mg tab ORAL SCH (20:34)
[2020-06-06] MEDS: Tamsulosin 0.4mg cap ORAL SCH (20:35)
--- NOTE | 2020-06-06 23:03 | Cardiology Progress Note ---
Subjective DATE OF SERVICE: Jun 06, 2020 Remains alert No LOC BP parameters stable Monitor: atrial paced Carotid Duplex: no significant plaquing Objective Last 24 Hour Vital Signs Date Time Temp Pulse Resp B/P (MAP) Pulse Ox O2 Delivery O2 Flow Rate FiO2 06/06/20 21:00 Room Air 06/06/20 20:00 60 06/06/20 20:00 98.1 61 20 124/60 (81) 99 06/06/20 16:00 98.6 60 20 140/66 (90) 97 06/06/20 16:00 60 06/06/20 12:00 98.6 71 19 130/71 (90) 100 06/06/20 12:00 76 06/06/20 09:00 Room Air 06/06/20 08:00 76 06/06/20 08:00 98.1 62 18 132/62 (85) 100 06/06/20 04:00 60 06/06/20 04:00 97.2 60 18 134/61 (85) 99 06/06/20 00:00 62 06/06/20 00:00 97.7 60 18 123/62 (82) 99 ROS: unchanged from my evaluation of 06/05/20. HEENT: normal ENT inspection RHYTHM: other - paced LUNGS: lungs clear bilaterally CARDIAC: normal rate, regular rhythm, normal S1 and S2, systolic murmur - 1/6 systolic at base ABDOMEN: non tender, soft EXTREMITIES: normal range of motion, No edema Laboratory Tests Test 06/06/20 05:33 White Blood Count 7.5 K/UL (4.8-10.8) Red Blood Count 4.19 M/UL (4.70-6.10) L Hemoglobin 11.3 G/DL (14.2-18.0) L Hematocrit 35.5 % (42.0-52.0) L Mean Corpuscular Volume 85 FL (80-99) Mean Corpuscular Hemoglobin 27.0 PG (27.0-31.0) Mean Corpuscular Hemoglobin Concent 32.0 G/DL (32.0-36.0) Red Cell Distribution Width 12.9 % (11.6-14.8) Platelet Count 256 K/UL (150-450) Mean Platelet Volume 7.3 FL (6.5-10.1) Neutrophils (%) (Auto) % (45.0-75.0) Lymphocytes (%) (Auto) % (20.0-45.0) Monocytes (%) (Auto) % (1.0-10.0) Eosinophils (%) (Auto) % (0.0-3.0) Basophils (%) (Auto) % (0.0-2.0) Differential Total Cells Counted 100 Neutrophils % (Manual) 76 % (45-75) H Lymphocytes % (Manual) 19 % (20-45) L Monocytes % (Manual) 5 % (1-10) Eosinophils % (Manual) 0 % (0-3) Basophils % (Manual) 0 % (0-2) Band Neutrophils 0 % (0-8) Platelet Estimate Adequate Platelet Morphology Normal Red Blood Cell Morphology Normal Sodium Level 137 MMOL/L (136-145) Potassium Level 3.1 MMOL/L (3.5-5.1) L Chloride Level 102 MMOL/L (98-107) Carbon Dioxide Level 24 MMOL/L (21-32) Anion Gap 11 mmol/L (5-15) Blood Urea Nitrogen 17 mg/dL (7-18) Creatinine 1.4 MG/DL (0.55-1.30) H Estimat Glomerular Filtration Rate 57.9 mL/min (>60) Glucose Level 114 MG/DL (74-106) H Hemoglobin A1c 6.1 % (4.3-6.0) H Calcium Level 9.4 MG/DL (8.5-10.1) Magnesium Level 2.1 MG/DL (1.8-2.4) Total Bilirubin 0.4 MG/DL (0.2-1.0) Aspartate Amino Transf (AST/SGOT) 18 U/L (15-37) Alanine Aminotransferase (ALT/SGPT) 9 U/L (12-78) L Alkaline Phosphatase 106 U/L (46-116) Pro-B-Type Natriuretic Peptide 272 pg/mL (0-125) H Total Protein 8.2 G/DL (6.4-8.2) Albumin 4.3 G/DL (3.4-5.0) Globulin 3.9 g/dL Albumin/Globulin Ratio 1.1 (1.0-2.7) Thyroid Stimulating Hormone (TSH) 5.731 uiU/mL (0.358-3.740) Microbiology Date/Time Source Procedure Growth Status 06/05/20 14:40 Nasopharynx SARS-CoV-2 RdRp Gene Assay - Final Complete Assessment/Plan Assessment/Plan Near syncope Hypovolemia and dehydration Dementia Hypertension/HHD Diastolic CHF, chronic Hx prostate CA Probable component of orthostatic hypotension Pacemaker IVF hydration Avoid orthostatic risk Cautious titration of antiHTN/antifailure regimen Ravi Trevino MD Jun 06, 2020 23:03
[2020-06-07] VITALS: BP 128/64
[2020-06-07 04:00] VITALS: BP 130/61
--- NOTE | 2020-06-07 07:25 | NUR ---
NURSE HAND-OFF REPORT: Important Events on Shift:Pt continued medications and required reorientation to surroundings Patient Status: Stable Diet: Cardiac diet Pending Orders: Pending Results/Labs:AM Labs Pending MD notification: Latest Vital Signs: Temperature 97.6 , Pulse 60 , B/P 130 /61 , Respiratory Rate 20 , O2 SAT 99 , Room Air, O2 Flow Rate . Vital Sign Comment: VSS EKG Rhythm: Sinus Rhythm w 1AVB, A Pacing Rhythm change?: N Notified?: Bridger Fofana MD Response: Latest Goldberg Fall Score: 50 Fall Risk: High Risk Safety Measures: Call light Within Reach, Bed Alarm Zone 1, Side Rails Side Rails x3, Bed position Low and Locked. Fall Precautions: Patient Fall Education Report given to EDWIN Gr.
--- NOTE | 2020-06-07 07:49 | General Progress Note ---
Subjective ROS Limited/Unobtainable: No Constitutional: Reports: malaise, weakness HEENT: Reports: no symptoms Cardiovascular: Reports: no symptoms Respiratory: Reports: no symptoms Gastrointestinal/Abdominal: Reports: no symptoms Genitourinary: Reports: no symptoms Neurologic/Psychiatric: Reports: no symptoms Endocrine: Reports: no symptoms Hematologic/Lymphatic: Reports: no symptoms Allergies: Coded Allergies: No Known Allergies (Verified Allergy, Mild, 08/21/10) All Systems: reviewed and negative except above Subjective no events. w/o complaints. denies dizziness. on ivf. cards noted. Objective Last 24 Hour Vital Signs Date Time Temp Pulse Resp B/P (MAP) Pulse Ox O2 Delivery O2 Flow Rate FiO2 06/07/20 04:00 60 06/07/20 04:00 97.6 60 20 130/61 (84) 99 06/07/20 00:00 97.9 62 20 128/64 (85) 99 06/07/20 00:00 58 06/06/20 21:00 Room Air 06/06/20 20:00 60 06/06/20 20:00 98.1 61 20 124/60 (81) 99 06/06/20 16:00 98.6 60 20 140/66 (90) 97 06/06/20 16:00 60 06/06/20 12:00 98.6 71 19 130/71 (90) 100 06/06/20 12:00 76 06/06/20 09:00 Room Air 06/06/20 08:00 76 06/06/20 08:00 98.1 62 18 132/62 (85) 100 Intake and Output 06/06/20 06/07/20 19:00 07:00 Intake Total 360 ml 480 ml Output Total 200 ml Balance 160 ml 480 ml Intake Oral 360 ml 480 ml Output Urine Total 200 ml # Voids 3 3 Height (Feet): 6 Height (Inches): 0.25 Weight (Pounds): 176 General Appearance: WD/WN, alert EENT: PERRL/EOMI Neck: non-tender, normal alignment, supple Cardiovascular: normal peripheral pulses, normal rate, regular rhythm Respiratory/Chest: chest wall non-tender, lungs clear, normal breath sounds Abdomen: normal bowel sounds, non tender, soft, no organomegaly Extremities: normal range of motion, non-tender Edema: no edema noted Arm (L), no edema noted Arm (R) 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
[2020-06-07 08:00] VITALS: BP 123/66
--- NOTE | 2020-06-07 08:21 | NUR ---
NURSE NOTES: Received report from Avi PINEDA. Pt sitting up in bed eating breakfast. No s/s of acute distress.IVF running on left AC, asymptomatic, patent and intact. Bed in low position, side rails up x3 and call light within reach. Will continue to monitor.
[2020-06-07] MEDS: ARIPiprazole 10mg tab ORAL SCH (08:45)
[2020-06-07] MEDS: Aspirin EC 81mg tab ORAL SCH (08:45)
[2020-06-07] MEDS: Levodopa/Carbidopa 25/100 tab ORAL SCH ×3 (08:45→17:50)
[2020-06-07 12:00] VITALS: BP 116/51
[2020-06-07 12:14] LABS: ANION GAP 7 mmol/L (5-15); BLOOD UREA NITROGEN 16 mg/dL (7-18); CALCIUM 8.7 MG/DL (8.5-10.1); CARBON DIOXIDE 26 MMOL/L (21-32); CHLORIDE 106 MMOL/L (98-107); CREATININE 1.1 MG/DL (0.55-1.30); POTASSIUM 3.9 MMOL/L (3.5-5.1); SODIUM 139 MMOL/L (136-145)
--- NOTE | 2020-06-07 13:25 | NUR ---
CASE MANAGEMENT:REVIEW 06/07/20 SI: ACUTE RENAL FAILURE DIZZINESS. HYPERTENSION 97.7 60 20 123/66 99% ON RA GLUCOSE+110 IS: IVF@75/HR ASA PO QD ABILIFY PO QD FLOMAX PO QHS NAMENDA PO QHS SINEMET PO TID : TELEMETRY STATUS DCP: FROM HOME PLAN: PER PHYSICAL THERAPY ~ AMBULATING 50FT ~ WOULD BENEFIT FROM HOME HEALTH
[2020-06-07 16:00] VITALS: BP 130/65
--- NOTE | 2020-06-07 19:32 | NUR ---
NURSE HAND-OFF REPORT: Important Events on Shift:[] Patient Status: [] Diet: [] Pending Orders: [] Pending Results/Labs:[] Pending MD notification:[] Latest Vital Signs: Temperature 97.7 , Pulse 60 , B/P 130 /65 , Respiratory Rate 23 , O2 SAT 100 , Room Air, O2 Flow Rate . Vital Sign Comment: [] EKG Rhythm: Sinus Rhythm, A v Pacing Rhythm change?: N MD Notified?: Bridger Fofana MD Response: Latest Goldberg Fall Score: 50 Fall Risk: High Risk Safety Measures: Call light Within Reach, Bed Alarm Zone 1, Side Rails Side Rails x3, Bed position Low and Locked. Fall Precautions: Patient Fall Education Report given to [EDWIN Cárdenas].
--- NOTE | 2020-06-07 19:35 | NUR ---
NURSE NOTES: Pt received from EDWIN Elizabeth. Pt is resting comfortably in bed and denies any pain. Pt is A/O x2 and requires reorientation to environment and purpose; pt is standby assist for ambulation. Pt is on cardiac monitoring SR and asymptomatic. Pt is breathing unlabored on RA and asymptomatic. Pt has LAC IV 18G running NS 75 ml/hr patent with skin dry and intact. Bed is locked and in lowest position with call light within reach. Will continue to monitor.
[2020-06-07 20:00] VITALS: BP 123/56
[2020-06-07] MEDS: Tamsulosin 0.4mg cap ORAL SCH (20:54)
[2020-06-07] MEDS: Memantine 10mg tab ORAL SCH (20:54)
--- NOTE | 2020-06-07 22:35 | NUR ---
NURSE HAND-OFF REPORT: Important Events on Shift:Pt transferred to [facility] Patient Status: Stable Diet: Cardiac Diet Pending Orders: Pending Results/Labs: Pending MD notification: Latest Vital Signs: Temperature 98.4 , Pulse 60 , B/P 123 /56 , Respiratory Rate 8 , O2 SAT 98 , Room Air, O2 Flow Rate . Vital Sign Comment: VSS EKG Rhythm: A-Paced Rhythm change?: N MD Notified?: Bridger Fofnaa MD Response: Latest Goldberg Fall Score: 50 Fall Risk: High Risk Safety Measures: Call light Within Reach, Bed Alarm Zone 1, Side Rails Side Rails x3, Bed position Low and Locked. Fall Precautions: Patient Fall Education Report given to Molly PINEDA.
--- NOTE | 2020-06-07 22:44 | NUR ---
NURSE NOTES: Received report from EDWIN Guthrie. Pt transferred from 2E @6446. Vitals 125/67, 60, 97.7, 98% stable. Denies pain. AAO x 2-3, on room air, resting in bed. IV intact, running IVF. No labored breathing. Bed locked, lowest position, alarm on, side rails up, call light within reach. Will continue to monitor. Addendum: 06/07/20 at 2249 by SHARON VALDERRAMA RN RN Belongings reviewed
[2020-06-08] VITALS: BP 128/60
--- NOTE | 2020-06-08 03:08 | Cardiology Progress Note ---
Subjective DATE OF SERVICE: Jun 07, 2020 Remains alert and without complaints No LOC BP parameters stable Monitor: atrial paced Carotid Duplex: no significant plaquing Objective Last 24 Hour Vital Signs Date Time Temp Pulse Resp B/P (MAP) Pulse Ox O2 Delivery O2 Flow Rate FiO2 06/08/20 00:00 98.2 61 18 128/60 (82) 95 06/07/20 21:00 Room Air 06/07/20 20:00 98.4 90 8 123/56 (78) 98 06/07/20 20:00 60 06/07/20 16:00 97.7 60 23 130/65 (86) 100 06/07/20 16:00 60 06/07/20 12:00 96.6 60 20 116/51 (72) 98 06/07/20 12:00 60 06/07/20 09:00 Room Air 06/07/20 08:00 60 06/07/20 08:00 97.7 60 20 123/66 (85) 99 06/07/20 04:00 60 06/07/20 04:00 97.6 60 20 130/61 (84) 99 ROS: unchanged from my evaluation of 06/05/20. HEENT: normal ENT inspection RHYTHM: other - paced LUNGS: lungs clear bilaterally CARDIAC: normal rate, regular rhythm, normal S1 and S2, systolic murmur - 1/6 systolic at base ABDOMEN: non tender, soft EXTREMITIES: normal range of motion, No edema Laboratory Tests Test 06/07/20 11:53 Sodium Level 139 MMOL/L (136-145) Potassium Level 3.9 MMOL/L (3.5-5.1) Chloride Level 106 MMOL/L (98-107) Carbon Dioxide Level 26 MMOL/L (21-32) Anion Gap 7 mmol/L (5-15) Blood Urea Nitrogen 16 mg/dL (7-18) Creatinine 1.1 MG/DL (0.55-1.30) Estimat Glomerular Filtration Rate > 60 mL/min (>60) Glucose Level 110 MG/DL (74-106) H Calcium Level 8.7 MG/DL (8.5-10.1) Microbiology Date/Time Source Procedure Growth Status 06/05/20 14:40 Nasopharynx SARS-CoV-2 RdRp Gene Assay - Final Complete Assessment/Plan Assessment/Plan Near syncope Hypovolemia and dehydration Dementia Hypertension/HHD Diastolic CHF, chronic Hx prostate CA Probable component of orthostatic hypotension Pacemaker Hydration IVF Titrate antiHTN regimen Avoid orthostasis PT/OT Ravi Trevino MD Jun 08, 2020 03:08
[2020-06-08 04:00] VITALS: BP 127/58
--- NOTE | 2020-06-08 06:51 | NUR ---
NURSE HAND-OFF: Important Events on Shift:transferred from tele Patient Status: stable Diet: cardiac Pending Orders: N Pending Results/Labs:N Pending MD notification:N Latest Vital Signs: Temperature 97.9 , Pulse 60 , B/P 127 /58 , Respiratory Rate 18 , O2 SAT 99 , Room Air, O2 Flow Rate . Vital Sign Comment: [] Latest Goldberg Fall Score: 50 Fall Risk: High Risk Safety Measures: Call light Within Reach, Bed Alarm Zone 1, Side Rails Side Rails x3, Bed position Low and Locked. Fall Precautions: Patient Fall Education Addendum: 06/08/20 at 0725 by SHARON VALDERRAMA RN RN HAND-OFF: Report given to
[2020-06-08 08:00] VITALS: BP 126/78
[2020-06-08] MEDS: ARIPiprazole 10mg tab ORAL SCH (08:44)
[2020-06-08] MEDS: Aspirin EC 81mg tab ORAL SCH (08:44)
[2020-06-08] MEDS: Levodopa/Carbidopa 25/100 tab ORAL SCH ×2 (08:44→12:15)
--- NOTE | 2020-06-08 10:49 | NUR ---
NURSE NOTES: Patient is resting in bed comfortably. He is AOx4, ambulatory with one person assist, continent of both bowel and bladder. skin is intact and IV is patent and dressing is clean. Patient will be monitored for safety.
--- NOTE | 2020-06-08 11:18 | NUR ---
NURSE NOTES: received a discharge order from Dr Fofana to D/C home. 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 Charge nurse aware.
[2020-06-08 12:00] VITALS: BP 131/67
--- NOTE | 2020-06-08 13:09 | General Progress Note ---
Subjective ROS Limited/Unobtainable: No Constitutional: Reports: no symptoms HEENT: Reports: no symptoms Cardiovascular: Reports: no symptoms Respiratory: Reports: no symptoms Gastrointestinal/Abdominal: Reports: no symptoms Genitourinary: Reports: no symptoms Neurologic/Psychiatric: Reports: no symptoms Endocrine: Reports: no symptoms Hematologic/Lymphatic: Reports: no symptoms Allergies: Coded Allergies: No Known Allergies (Verified Allergy, Mild, 08/21/10) All Systems: reviewed and negative except above Subjective no events. w/o complaints. denies dizziness. on ivf. cards noted. feels well. wants to go home. Objective Last 24 Hour Vital Signs Date Time Temp Pulse Resp B/P (MAP) Pulse Ox O2 Delivery O2 Flow Rate FiO2 06/08/20 12:00 97.5 60 17 131/67 (88) 99 06/08/20 09:00 Room Air 06/08/20 08:00 98.2 84 18 126/78 (94) 100 06/08/20 04:00 97.9 60 18 127/58 (81) 99 06/08/20 00:00 98.2 61 18 128/60 (82) 95 06/07/20 21:00 Room Air 06/07/20 20:00 98.4 90 8 123/56 (78) 98 06/07/20 20:00 60 06/07/20 16:00 97.7 60 23 130/65 (86) 100 06/07/20 16:00 60 Intake and Output 06/07/20 06/08/20 19:00 07:00 Intake Total 600 ml Output Total 650 ml Balance -50 ml IV Total 600 ml Output Urine Total 650 ml # Voids 2 Height (Feet): 6 Height (Inches): 0.25 Weight (Pounds): 176 Objective General Appearance: WD/WN, alert EENT: PERRL/EOMI Neck: non-tender, normal alignment, supple Cardiovascular: normal peripheral pulses, normal rate, regular rhythm Respiratory/Chest: chest wall non-tender, lungs clear, normal breath sounds Abdomen: normal bowel sounds, non tender, soft, no organomegaly Extremities: normal range of motion, non-tender Edema: no edema noted Arm (L), no edema noted Arm (R) Neurologic: cloth hand II-XII grossly normal, no motor/sensory deficits, abnormal gait, alert, oriented x 3 Skin: normal pigmentation Lymphatic: normal anterior cervical (L), normal anterior cervical (R) Assessment/Plan Problem List: (1) ARF (acute renal failure) ICD Codes: N17.9 - Acute kidney failure, unspecified SNOMED: 86528067 (2) Dizziness ICD Codes: R42 - Dizziness and giddiness SNOMED: 628687482, [id number] (3) Hypertension ICD Codes: I10 - Essential (primary) hypertension SNOMED: 96544131 Status: stable Assessment/Plan: dc ivf mobilize pt/ot tele anxiolytics dc planning message left with dtr await call back Xander Fofana MD Jun 08, 2020 13:09
--- NOTE | 2020-06-08 13:23 | Cardiology Progress Note ---
Subjective DATE OF SERVICE: Jun 08, 2020 Remains alert No LOC BP parameters stable Off monitor now Carotid Duplex: no significant plaquing Objective Last 24 Hour Vital Signs Date Time Temp Pulse Resp B/P (MAP) Pulse Ox O2 Delivery O2 Flow Rate FiO2 06/08/20 12:00 97.5 60 17 131/67 (88) 99 06/08/20 09:00 Room Air 06/08/20 08:00 98.2 84 18 126/78 (94) 100 06/08/20 04:00 97.9 60 18 127/58 (81) 99 06/08/20 00:00 98.2 61 18 128/60 (82) 95 06/07/20 21:00 Room Air 06/07/20 20:00 98.4 90 8 123/56 (78) 98 06/07/20 20:00 60 06/07/20 16:00 97.7 60 23 130/65 (86) 100 06/07/20 16:00 60 ROS: unchanged from my evaluation of 06/05/20. HEENT: normal ENT inspection LUNGS: lungs clear bilaterally CARDIAC: normal rate, regular rhythm, normal S1 and S2, systolic murmur - 1/6 systolic at base ABDOMEN: non tender, soft EXTREMITIES: normal range of motion, No edema Microbiology Date/Time Source Procedure Growth Status 06/05/20 14:40 Nasopharynx SARS-CoV-2 RdRp Gene Assay - Final Complete Assessment/Plan Assessment/Plan Near syncope Hypovolemia and dehydration corrected Dementia Hypertension/HHD Diastolic CHF, chronic Hx prostate CA Probable component of orthostatic hypotension resolved Pacemaker DC IVF; maintain adequate oral hydration Avoid orthostatic risk Continue current antiHTN/antifailure regimen Ravi Trevino MD Jun 08, 2020 13:23
[2020-06-08 16:00] VITALS: BP 119/67
--- NOTE | 2020-06-08 17:14 | NUR ---
NURSE NOTES: Patient was discharged home at 1700. Daughter, Sandie, picked him up, he was transported to lobby via wheelchair and then he left in private vehicle. He left with all his belongings and medications. He did not show any signs of pain or distress. His IV was removed, no bleeding, or swelling noticed.
--- NOTE | 2020-06-10 13:59 | Discharge Summary ---
Discharge Summary Discharge Summary _ DATE OF ADMISSION: 06/05/2020 DATE OF DISCHARGE: 06/08/2020 DISCHARGED BY: Dr. Fofana REASON FOR ADMISSION: 89 years old male with past medical history of hypertension, coronary atherosclerosis, cerebrovascular disease, hypertensive heart disease, degenerative valve disease, permanent pacemaker, prostate cancer, osteoarthritis, degenerative disc disease, dementia, presented with dizziness and lightheadedness upon standing along with headache. Patient became increasingly weak and nauseated . Laboratory work-up revealed mild anemia with hemoglobin 11, hematocrit 34.1. No leukocytosis. Chemistry revealed creatinine of 1.7 , BUN 15. Troponin 0.005 . EKG revealed atrial paced rhythm with some PACs and T wave inversion in anterior leads. Chest x-ray revealed cardiomegaly and mild central pulmonary vascular congestion Rapid COVID-19 was negative. Patient received liter of fluid and admitted for further management. CONSULTANTS: senior product development scientist HOSPITAL COURSE: Patient admitted and started on IV fluids. Current anti-failure and antihypertension regimen continued. Blood pressure was managed with calcium channel arcelia. Patient was on antiplatelet therapy with aspirin. Patient remained in atrial pacing. Fall precaution maintained. Patient was working with a physical therapist. Renal parameters and electrolytes were closely monitored, electrolytes corrected as needed, and nephrotoxic's were avoided. With IV hydration creatinine down to 1.1. Acute renal failure resolved. Potassium was replaced . Magnesium stable IV fluid discontinued. Adequate oral hydration maintained. Sinemet continued. Supportive care provided. Patient clinically stabilized and was ready for discharge home. FINAL DIAGNOSES: Near syncope, likely due to dehydration and hypovolemia- corrected Acute renal failure -resolved Probable component of orthostatic hypotension- resolved Hypertension/hypertensive heart disease Chronic diastolic CHF History of prostate cancer Dizziness Dementia Pacemaker DISCHARGE MEDICATIONS: See Medication Reconciliation list. DISCHARGE INSTRUCTIONS: Patient was discharged home. Follow-up with a primary care provider in 1 week. I have been assigned to dictate discharge summary for this account. I was not involved in the patient's management. Sarah Gongora NP Jun 10, 2020 13:59
== END 2020-06-08 17:05 | disposition home or self-care (01) | DRG 641 ==
LOC: EMR 14:22 → 2E 14:30 → EDBEDREQ 15:08 → 2E 06-06 19:04 → 4E 06-07 22:23
DX: E86.0 Dehydration (principal); N17.9 Acute kidney failure, unspecified; I50.32 Chronic diastolic (congestive) heart failure; I95.1 Orthostatic hypotension; Z95.0 Presence of cardiac pacemaker; I11.0 Hypertensive heart disease with heart failure; Z85.46 Personal history of malignant neoplasm of prostate; F03.90 Unspecified dementia, unspecified severity, without behavioral disturbance, psychotic disturbance, mood disturbance, and anxiety; M19.90 Unspecified osteoarthritis, unspecified site; E86.1 Hypovolemia; R42 Dizziness and giddiness; I25.10 Atherosclerotic heart disease of native coronary artery without angina pectoris
CPT/HCPCS: 36415; 71045; 80048; 80053; 83036; 83735; 83880; 84443; 84484; 85007; 85025; 93005; 93880; 96360; 99291; J7030; U0002